=== PATIENT | female | born 1960 | race Caucasian/White ===

== ENCOUNTER → 2018-04-18 16:43 | Outpatient (CLI) | payer OTHER, SELFPAY ==
[2018-04-18 18:25] LABS: Anion Gap 9 (5-15); BUN 12 mg/dL (7-18); BUN/Creat Ratio 16.5 RATIO (10-20); Calcium,Total 10.1 mg/dL (8.5-10.1); Chloride 96 mmol/L (98-107); Cholesterol 259 mg/dL (200); Creatinine, Serum 0.73 mg/dL (0.55-1.02); EST Glomerular Filtration Rate 88 mL/min (>60); Est Glom Filt Rate - Afr Amer 106 mL/min (>60); Glucose 97 mg/dL (74-106); High Density Lipoprotein 80 mg/dL; Sodium Level 133 mmol/L (136-145); Triglycerides 115 mg/dL; Very Low Density Lipoprotein 23 mg/dL (5-40)
[2018-04-18 18:43] LABS: Microalbumin,Random Urine 12.6 mg/L (NO RANGE EST.); Microalbumin:Creatinine Ratio 87.5 mg/g CRE (<30 mg/g CRE)
--- OUTSIDE RECORDS SUMMARY | 2018-06-14 09:19 | XMS RPT_ITS ---
:1960 Author Organization [facility] Care Team Providers Name Role Phone Jami Hopkins Attending Unavailable Jami Hopkins Primary Care Unavailable PROBLEMS PROBLEMS No Problem Records FoundPROCEDURES PROCEDURES No Procedure Records FoundRESULTS RESULTS PROGRESS Observed: 05/02/2018 Status: COMPLETED Source: [place] 9:56 AM [facility] [place] REPOSITORY HNO ID: [id number] Author: Rayne Navarrete Brim Pouncer Service: (none) Author Type: (none) Type: Progress Notes Filed: 05/02/2018 9:56 AM Note Text: Mychart message read. PROGRESS Observed: 04/26/2018 Status: COMPLETED Source: [place] 12:20 PM [facility] REPOSITORY HNO ID: [id number] Author: Rayne Navarrete [facility] Service: (none) Author Type: (none) Type: Progress Notes Filed: 05/02/2018 9:56 AM Note Text: MyChart message sent. PROGRESS Observed: 04/25/2018 Status: COMPLETED Source: [place] 12:59 PM [facility] [place] REPOSITORY HNO ID: [id number] Author: Rayne Navarrete [facility] Service: (none) Author Type: (none) Type: Progress Notes Filed: 05/02/2018 9:56 AM Note Text: [facility] CARE GAP REGISTRY DOCUMENTATION (OUTSIDE TEAMLET) Provider Action/FYI: PSR Action/FYI: - r/s 6 mo follow up/Physical/HTN f/up - Schedule PAP/HPV if patient willing Discuss Due HM: ANNUAL PCP TEAM CHRONIC DISEASE VISIT due on 1978 BP CONTROLLED (<130/80) due on 1978 MAMMOGRAM due on 07/16/2016 - order pending DTAP,TDAP,TD(2 - Td) due on 08/31/2016 PAP EVERY 5 YEARS due on 12/29/2017 HPV EVERY 5 YEARS due on 12/29/2017 INFLUENZA(1) due on 01/21/2018 DIABETES SCREEN due on 04/16/2018 - order pending Patient identified by name and date of . Last BP/Labs: Blood Pressure: Last 3 Encounter BP Readings: Date: BP: 01/07/2017 160/90[ (from Extended Vitals)[ 01/13/2016 148/96 07/23/2015 138/82 Lipids: Cholesterol, Total (mg/dL) Date Value 01/03/2017 286 01/09/2016 223 HDL Cholesterol (mg/dL) Date Value 01/03/2017 76 01/09/2016 76 LDL Cholesterol (mg/dL) Date Value 01/03/2017 191 01/09/2016 133 Triglyceride (mg/dL) Date Value 01/03/2017 93 01/09/2016 72 HGB A1C: Lab Results Component Value Date HBA1C 5.6 07/24/2014 TSH: TSH (uU/mL) Date Value 07/24/2014 4.510 ) ? Patient has the following care gap registry disease diagnosis:HTN ? Patient has the following open care gaps: Health Maintenance Due: ANNUAL PCP TEAM CHRONIC DISEASE VISIT due on 1978 BP CONTROLLED (<130/80) due on 1978 MAMMOGRAM due on 07/16/2016 - order pending DTAP,TDAP,TD(2 - Td) due on 08/31/2016 PAP EVERY 5 YEARS due on 12/29/2017 HPV EVERY 5 YEARS due on 12/29/2017 INFLUENZA(1) due on 01/21/2018 DIABETES SCREEN due on 04/16/2018 - order pending ? Last office visit: 01/07/2017 ? Future office visit:Follow-up HTN/6 month follow up r/s with Provider pcp or SENIOR GRADUATE ADVISOR Rayne Navarrete Cma, [id number] Observed: 04/25/2018 Status: COMPLETED Source: [place] 12:00 AM [facility] REPOSITORY Patient Outreach (INTMWS) KANDACE RASHEED Oscar ([id number]) 1960 F KDP Date Time Provider Department 04/25/18 RAYNE NAVARRETE ([facility]) INTMWS During your visit today, we recorded the following information about you: Rayne Landon [facility] 05/02/2018 9:56 AM Signed [facility] CARE GAP REGISTRY DOCUMENTATION (OUTSIDE TEAMLET) Provider Action/FYI: PSR Action/FYI: - r/s 6 mo follow up/Physical/HTN f/up - Schedule PAP/HPV if patient willing Discuss Due HM: ANNUAL PCP TEAM CHRONIC DISEASE VISIT due on 1978 BP CONTROLLED (<130/80) due on 1978 MAMMOGRAM due on 07/16/2016 - order pending DTAP,TDAP,TD(2 - Td) due on 08/31/2016 PAP EVERY 5 YEARS due on 12/29/2017 HPV EVERY 5 YEARS due on 12/29/2017 INFLUENZA(1) due on 01/21/2018 DIABETES SCREEN due on 04/16/2018 - order pending Patient identified by name and date of . Last BP/Labs: Blood Pressure: Last 3 Encounter BP Readings: Date: BP: 01/07/2017 160/90[ (from Extended Vitals)[ 01/13/2016 148/96 07/23/2015 138/82 Lipids: Cholesterol, Total (mg/dL) Date Value 01/03/2017 286 01/09/2016 223 HDL Cholesterol (mg/dL) Date Value 01/03/2017 76 01/09/2016 76 LDL Cholesterol (mg/dL) Date Value 01/03/2017 191 01/09/2016 133 Triglyceride (mg/dL) Date Value 01/03/2017 93 01/09/2016 72 HGB A1C: Lab Results Component Value Date HBA1C 5.6 07/24/2014 TSH: TSH (uU/mL) Date Value 07/24/2014 4.510 ) ? Patient has the following care gap registry disease diagnosis:HTN ? Patient has the following open care gaps: Health Maintenance Due: ANNUAL PCP TEAM CHRONIC DISEASE VISIT due on 1978 BP CONTROLLED (<130/80) due on 1978 MAMMOGRAM due on 07/16/2016 - order pending DTAP,TDAP,TD(2 - Td) due on 08/31/2016 PAP EVERY 5 YEARS due on 12/29/2017 HPV EVERY 5 YEARS due on 12/29/2017 INFLUENZA(1) due on 01/21/2018 DIABETES SCREEN due on 04/16/2018 - order pending ? Last office visit: 01/07/2017 ? Future office visit:Follow-up HTN/6 month follow up r/s with Provider pcp or SENIOR GRADUATE ADVISOR Rayne Navarrete [facility] 05/02/2018 9:56 AM Signed [employer] message sent. Rayne Navarrete Cma 05/02/2018 9:56 AM Signed [employer] message read. Allergies As of Date: 04/25/2018 Noted Allergy Reaction BEES 01/21/2005 MACROBID (NITROFURANTOIN MONOHYD/*01/21/2005 12 - Shortness of Breath soft shell crabs [Other] 01/21/2005 Date Reviewed: 01/07/2017 Reviewed by: Liz Segura [facility] - Fully Assessed Reason for Visit: PHMA/Care Gap Outreach [3605] Primary Visit Diagnosis:Screening mammogram, encounter for [Z12.31] Other Visit Diagnoses:Essential hypertension [I10] Encounter for screening for diabetes mellitus [Z13.1] Order(s):HUONG SCREENING [[id number]] Order #: [id number] FUTURE COMP METABOLIC PANEL [SQCMP] Order #: [id number] FUTURE HUONG SCREENING W STACIE [[id number]] Order #: [id number] FUTURE Prescriptions as of 04/25/2018 Sig: CHOLECALCIFEROL (VITAMIN D3) * Take 1 tablet by mouth once d* COMPOUNDED PRESCRIPTION once daily. glucosamine chond* CYCLOBENZAPRINE 5 MG TABLET Take 1 tablet by mouth three * HYOSCYAMINE SULFATE 0.125 MG * Take 1 tablet by mouth twice * MULTI-VITAMIN ORAL Take 1 tablet by mouth twice * OMEGA 8-EPG-PST-FISH OIL 1,00* Take 1 capsule by mouth twice* OXYCODONE-ACETAMINOPHEN 5 MG-* Take 1 tablet by mouth every * PAROXETINE 20 MG TABLET Take 1 tablet by mouth once d* TRIAMTERENE 37.5 MG-HYDROCHLO* TAKE ONE TABLET BY MOUTH EVER* Problem List As Of Date 04/25/2018 Noted Resolved Other abnormal heart sounds [R01.2] 04/21/2015 TENSION HEADACHE [G44.209] IRRITABLE COLON [K58.9] DEPRESSIVE DISORDER NEC [F32.9] 04/21/2015 More... GENERALIZED ANXIETY DIS [F41.1] More... 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 LAB L501.1000 7-18 mg/dL Normal BUN 12 LAB L501.1100 0.55-1.02 mg/dL Normal CREAT,SERUM 0.73 Result Comment: The validity of the calculated GFR AND GFRAA in patients over 70 years has not been determined. Clinical correlation is essential. LAB L501.1110 >60 mL/min Normal EST GFR 88 Result Comment: Non- GFR Calc LAB L501.1115 >60 mL/min Normal EST GFR - AA 106 Result Comment: GFR Calc LAB L501.1300 10-20 RATIO Normal BUN/CRE 16.5 LAB L501.2200 8.5-10.1 mg/dL CA Normal 10.1 LAB L501.5300 136-145 mmol/L Low NA 133 LAB L501.5600 3.5-5.1 mmol/L K Normal 4.0 LAB L501.5900 98-107 mmol/L Low CL 96 LAB L501.6100 21.0-32.0 mmol/L Normal CO2 28.0 LAB L501.6200 5-15 Normal GAP 9 Performed By: #### L500.2500, L500.4100 #### [facility] [address] [place], [address] LIPID PROFILE Collected: 04/18/2018 Status: F Source: [place] 4:50 PM [facility] REPOSITORY TYPE CODE TESTS RESULT OUT OF RANGE REFERENCE UNITS LAB L501.4900 200 mg/dL High CHOL 259 Result Comment: <200 mg/dL Desirable 200-240 mg/dL Borderline >240 mg/dL High Risk LAB L501.5000 mg/dL Normal TRIG 115 Result Comment: The drugs N-Acetylcysteine and Metamizole may falsely depress this assay. Serum Triglycerides Reference Interval Normal <150 mg/dL Borderline high 150 - 199 mg/dL High 200 - 499 mg/dL Very High > or = 500 mg/dL LAB L501.6400 mg/dL Normal HDL 80 Result Comment: The drugs N-Acetylcysteine and Metamizole may falsely depress this assay. Reference Range HDL <40 mg/dL Low HDL Cholesterol HDL >or= 60 mg/dL High HDL Cholesterol LAB L501.6500 0-130 mg/dL High LDL 156 LAB L501.6600 5-40 mg/dL Normal VLDL 23 Performed By: #### L500.2500, L500.4100 #### [facility] [address] [place], [address] MICROALB:CREAT Collected: 04/18/2018 Status: F Source: [place] RATIO,RANDOM UR 4:50 PM [facility] REPOSITORY TYPE CODE TESTS RESULT OUT OF RANGE REFERENCE UNITS LAB L501.1200 NO RANGE EST. mg/dL Normal UR CREAT 14.40 LAB L502.0500 NO RANGE EST. mg/L Normal 12.6 MICROALBUMIN ,UR LAB L502.0600 <30 mg/g CRE mg/g CRE High 87.5 MALB:CREAT Performed By: #### L502.0250 #### [facility] [address] [place], [address] ALLERGIES ALLERGIES No Allergies Records FoundENCOUNTERS ENCOUNTERS ADMIT/DISCHARGE ACCOUNT ADMITTING ENCOUNTER LOCATION SOURCE NUMBER CLASS 04/18/2018 [id number] Ambulatory [address] ing:MFPLAB Repository PAYERS PAYERS ENCOUNTER GUARANTOR PAYER SUBSCRIBER SOURCE 04/18/2018 KANDACE Primary KANDACE [place] [id number] Insurance:ELINALTCAREMarlo ROSADOROTHDOB: [address] [place]: [id number] [id number] Repository [address]Ywr: [phone] Date:[id number] [phone] (HP) [address] [address]TK: 04/18/2018 Secondary NOT GIVENNESHA Whitman Insurance:SELF PAY [facility] Number: Effective Repository Date:2018-04-18
== END ==
PROVIDERS: Family Provider Family Medicine; PCP Family Medicine; Visit Provider Family Medicine
DX: I10 Essential (primary) hypertension (principal); E78.5 Hyperlipidemia, unspecified; Z52.4 Kidney donor
CPT/HCPCS: 36415; 80048; 80061; 82043; 82570

== ENCOUNTER → 2018-06-15 12:18 | Outpatient (CLI) | payer OTHER, SELFPAY ==
--- NOTE | 2018-06-15 12:21 | BI_ITS ---
MAMMOGRAPHY - BILATERAL SCREENING REASON FOR EXAM: Female, 57 years old. Routine annual screening examination. PERTINENT HISTORY: Aunt with breast cancer. TECHNIQUE: Digital bilateral breast isreal (3D mammographic acquisition) in the CC and MLO projections. 2-D mediolateral oblique (MLO) and craniocaudad (CC) views of both breasts were obtained. CAD: Full Field Digital Mammography with Computer Added Detection was performed. COMPARISON: Comparison is made with prior outside mammogram dated July 16, 2015. FINDINGS: Breast Composition: The breasts are heterogeneously dense, which may obscure small masses. There are no dominant masses or suspicious calcifications. No other significant abnormalities are identified. There has been no significant change since the prior study. BI/SCREENING MAMM (CAD), BILAT IMPRESSION: Stable bilateral screening mammogram. Yearly follow-up mammogram recommended. (A) ASSESSMENT CATEGORY: BIRADS Category 1: Negative. A letter regarding these results will be sent to the patient by the facility within 30 days. Approximately 10% of breast cancers are not detected by mammography. A normal mammogram should not delay biopsy of a clinically suspicious abnormality. [id number] Electronically Signed: Humza Hoffman MD at 14:56 EST , Service support ,
== END ==
PROVIDERS: Family Provider Family Medicine; PCP Family Medicine; Referring Provider Family Medicine; Visit Provider Family Medicine
DX: Z12.31 Encounter for screening mammogram for malignant neoplasm of breast (principal)
CPT/HCPCS: 77063; 77067

== ENCOUNTER → 2018-06-23 10:48 | Outpatient (CLI) | payer OTHER, SELFPAY ==
[2018-06-23 12:32] LABS: AST(SGOT) 25 U/L (15-37); Cholesterol 148 mg/dL (200); High Density Lipoprotein 67 mg/dL; Triglycerides 102 mg/dL; Very Low Density Lipoprotein 20 mg/dL (5-40)
[2018-06-23 12:59] LABS: Microalbumin:Creatinine Ratio 17.2 mg/g CRE (<30 mg/g CRE)
== END ==
PROVIDERS: Family Provider Family Medicine; PCP Family Medicine; Visit Provider Family Medicine
DX: E78.5 Hyperlipidemia, unspecified (principal)
CPT/HCPCS: 36415; 80061; 82043; 82570; 84450

== ENCOUNTER → 2018-06-26 12:07 | Outpatient (CLI) | payer OTHER, SELFPAY ==
[2018-06-28 12:15] LABS: HPV Reflexed? NOT INDICATED
== END ==
PROVIDERS: Family Provider Family Medicine; PCP Family Medicine; Referring Provider Family Medicine; Visit Provider Family Medicine
DX: Z12.4 Encounter for screening for malignant neoplasm of cervix (principal)
CPT/HCPCS: 88175; G0145

== ENCOUNTER → 2018-12-25 | Outpatient (CLI) | payer OTHER, SELFPAY ==
[2018-12-25 12:50] LABS: Anion Gap 8 (5-15); BUN 12 mg/dL (7-18); BUN/Creat Ratio 14.3 RATIO (10-20); Chloride 101 mmol/L (98-107); Creatinine, Serum 0.84 mg/dL (0.55-1.02); EST Glomerular Filtration Rate 74 mL/min (>60); Est Glom Filt Rate - Afr Amer 89 mL/min (>60); Glucose 105 mg/dL (74-106); Potassium 4.3 mmol/L (3.5-5.1); Sodium Level 138 mmol/L (136-145)
== END | disposition home or self-care (01) ==
LOC: MFPLAB 10:47
PROVIDERS: Family Provider Family Medicine; PCP Family Medicine; Visit Provider Family Medicine
DX: I10 Essential (primary) hypertension (principal)
CPT/HCPCS: 36415; 80048

== ENCOUNTER → 2019-07-06 | Outpatient (CLI) | payer MEDICAID, SELFPAY ==
--- NOTE | 2019-07-06 12:57 | BI_ITS ---
MAMMOGRAPHY - BILATERAL SCREENING REASON FOR EXAM: Female, 58 years old. Routine annual screening examination. PERTINENT HISTORY: Aunt with breast cancer. TECHNIQUE: Digital bilateral breast stacie (3D mammographic acquisition) in the CC and MLO projections. 2-D mediolateral oblique (MLO) and craniocaudad (CC) views of both breasts were obtained. CAD: Full Field Digital Mammography with Computer Added Detection was performed. COMPARISON: Comparison is made with prior examination dated June 15, 2018. FINDINGS: Breast Composition: The breasts are heterogeneously dense, which may obscure small masses. There are no dominant masses or suspicious calcifications. Stable scattered bilateral calcifications. No other significant abnormalities are identified. There has been no significant change since the prior study. BI/SCREEN MAMM (CAD) W/STACIE BILAT IMPRESSION: Stable bilateral screening mammogram. Yearly follow-up mammogram recommended. (A) ASSESSMENT CATEGORY: BIRADS Category 2: Benign. A letter regarding these results will be sent to the patient by the facility within 30 days. Approximately 10% of breast cancers are not detected by mammography. A normal mammogram should not delay biopsy of a clinically suspicious abnormality. [id number] Electronically Signed: Humza Hoffman, at 14:21 EST , Service support ,
== END | disposition home or self-care (01) ==
PROVIDERS: Family Provider Family Medicine; PCP Family Medicine; Referring Provider Family Medicine; Visit Provider Family Medicine
DX: Z12.31 Encounter for screening mammogram for malignant neoplasm of breast (principal)
CPT/HCPCS: 77063; 77067

== ENCOUNTER → 2019-07-18 15:00 | Outpatient (CLI) | payer MEDICAID, SELFPAY ==
[2019-07-18 17:47] LABS: Anion Gap 7 (5-15); BUN 15 mg/dL (7-18); BUN/Creat Ratio 18.4 RATIO (10-20); Calcium,Total 9.8 mg/dL (8.5-10.1); Chloride 101 mmol/L (98-107); Creatinine, Serum 0.82 mg/dL (0.55-1.02); EST Glomerular Filtration Rate 77 mL/min (>60); Est Glom Filt Rate - Afr Amer 93 mL/min (>60); Glucose 88 mg/dL (74-106); Potassium 3.5 mmol/L (3.5-5.1); Sodium Level 135 mmol/L (136-145)
== END ==
PROVIDERS: PCP Family Medicine; Referring Provider Family Medicine; Visit Provider Family Medicine
DX: I10 Essential (primary) hypertension (principal)
CPT/HCPCS: 36415; 80048

== ENCOUNTER → 2019-07-27 | Outpatient (CLI) | payer OTHER, SELFPAY ==
--- NOTE | 2019-07-27 10:52 | ECHOD_ITS ---
Reason For Study: MURMUR Procedure This was a 2D Doppler, Color Flow transthoracic echocardiogram. Exam performed in department. Left Ventricle Normal LV size. Left ventricular systolic function is normal. The estimated ejection fraction is 60 %. Normal diastology for age. No regional wall motion abnormalities noted. Right Ventricle Normal RV size. Normal systolic function. Atria Normal left atrium. Normal right atrium. Mitral Valve Normal mitral valve. Mild (1+) eccentric mitral valve insufficiency. Tricuspid Valve Normal tricuspid valve. Aortic Valve Normal aortic valve. Trisinus/trileaflet aortic valve. Pulmonic Valve Normal pulmonic valve. Great Vessels Normal aortic root. The pulmonary artery is normal size. Normal inferior vena cava. Pericardium/Pleural No pericardial effusion. MMode/2D Measurements & Calculations LVIDd: 4.6 cm IVSd: 1.2 cm Ao root diam: 3.5 cm LVIDs: 2.8 cm LVPWd: 1.1 cm RVDd: 2.9 cm FS: 39.3 % LAV(MOD-bp): 68.3 ml LA A4 area: 19.0 cm2 LA dimension(2D): 3.7 cm LAV(MOD-bp) Indexed: 40.2 ml/m2 LAV(MOD-sp2): 62.6 ml LAV(MOD-sp4): 62.1 ml RA A4 area: 13.0 cm2 Time Measurements MV dec time: 0.20 sec Doppler Measurements & Calculations MV E max you: 62.8 cm/sec Lat Peak E' You: 10.2 cm/sec Med Peak E' You: 7.5 cm/sec MV A max you: 69.8 cm/sec E/E' lat: 6.2 E/E' med: 8.4 MV E/A: 0.90 Ao V2 max: 121.9 cm/sec LV V1 max: 102.0 cm/sec Ao max P.0 mmHg LV V1 max P.2 mmHg Interpretation Summary Normal LV size. Left ventricular systolic function is normal. The estimated ejection fraction is 60 %. Normal diastology for age. Structurally normal valves. Ordering Physician: Jami Hopkins Referring Physician: Jami Hopkins Performed By: Tanisha Islas, SIMON, RVT
== END | disposition home or self-care (01) ==
LOC: CVS 10:50
PROVIDERS: PCP Family Medicine; Referring Provider Family Medicine; Visit Provider Family Medicine
DX: R01.1 Cardiac murmur, unspecified (principal)
CPT/HCPCS: 93306

== ENCOUNTER → 2020-08-01 11:32 | Outpatient (CLI) | payer OTHER, SELFPAY ==
[2020-08-01 15:38] LABS: Anion Gap 9 (5-15); BUN 13 mg/dL (7-18); Calcium,Total 10.4 mg/dL (8.5-10.1); Chloride 100 mmol/L (98-107); Cholesterol 177 mg/dL (200); Creatinine, Serum 0.87 mg/dL (0.55-1.02); EST Glomerular Filtration Rate 71 mL/min (>60); Est Glom Filt Rate - Afr Amer 86 mL/min (>60); Glucose 129 mg/dL (74-106); High Density Lipoprotein 82 mg/dL; Potassium 4.1 mmol/L (3.5-5.1); Sodium Level 137 mmol/L (136-145); Triglycerides 55 mg/dL; Very Low Density Lipoprotein 11 mg/dL (5-40)
== END ==
PROVIDERS: PCP Family Medicine; Referring Provider Family Medicine; Visit Provider Family Medicine
DX: I10 Essential (primary) hypertension (principal)
CPT/HCPCS: 36415; 80048; 80061

== ENCOUNTER → 2020-09-26 11:22 | Outpatient (CLI) | payer OTHER, SELFPAY ==
--- NOTE | 2020-09-26 11:25 | BI_ITS ---
MAMMOGRAPHY - BILATERAL SCREENING REASON FOR EXAM: Female, 59 years old. Routine annual screening examination. PERTINENT HISTORY: Aunt with breast cancer. TECHNIQUE: Digital bilateral breast stacie (3D mammographic acquisition) in the CC and MLO projections. 2-D mediolateral oblique (MLO) and craniocaudad (CC) views of both breasts were obtained. CAD: Full Field Digital Mammography with Computer Added Detection was performed. COMPARISON: Comparison is made with prior study dated 07/06/2019 and 06/15/2018. FINDINGS: Breast Composition: The breasts are heterogeneously dense, which may obscure small masses. There are no dominant masses or suspicious calcifications. Stable scattered calcifications in both breasts. No other significant abnormalities are identified. There has been no significant change since the prior study. BI/SCRN MAMM (CAD)W/STACIE BILAT IMPRESSION: Stable bilateral screening mammogram. Yearly follow-up mammogram recommended. (A) ASSESSMENT CATEGORY: BIRADS Category 2: Benign. A letter regarding these results will be sent to the patient by the facility within 30 days. Approximately 10% of breast cancers are not detected by mammography. A normal mammogram should not delay biopsy of a clinically suspicious abnormality. [id number] Electronically Signed: Humza Hoffman MD at 12:34 EDT , Service support ,
== END ==
PROVIDERS: PCP Family Medicine; Referring Provider Family Medicine; Visit Provider Family Medicine
DX: Z12.31 Encounter for screening mammogram for malignant neoplasm of breast (principal)
CPT/HCPCS: 77063; 77067

== ENCOUNTER 2021-08-03 14:42 | Outpatient (CLI) | payer OTHER, SELFPAY ==
[2021-08-03 18:07] LABS: Anion Gap 7 (5-15); BUN 12 mg/dL (7-18); BUN/Creat Ratio 13.8 RATIO (10-20); Calcium,Total 9.7 mg/dL (8.5-10.1); Chloride 100 mmol/L (98-107); Cholesterol 174 mg/dL (200); Creatinine, Serum 0.87 mg/dL (0.55-1.02); EST Glomerular Filtration Rate 70 mL/min (>60); Est Glom Filt Rate - Afr Amer 85 mL/min (>60); Glucose 120 mg/dL (74-106); High Density Lipoprotein 77 mg/dL; Potassium 3.7 mmol/L (3.5-5.1); Sodium Level 136 mmol/L (136-145); Triglycerides 137 mg/dL; Very Low Density Lipoprotein 27 mg/dL (5-40)
[2021-08-03 18:19] LABS: Creatinine, Urine (random) < 13.00 mg/dL (NO RANGE EST.); Microalbumin,Random Urine 14.2 mg/L (NO RANGE EST.)
[2021-08-09 16:29] LABS: HPV APTIMA, High Risk Negative (Negative); HPV Reflexed? YES, CHARGE PATIENT
== END 2021-08-03 23:59 | disposition home or self-care (01) ==
PROVIDERS: PCP Family Medicine; Referring Provider Family Medicine; Visit Provider Family Medicine
DX: Z12.4 Encounter for screening for malignant neoplasm of cervix (principal); I10 Essential (primary) hypertension
CPT/HCPCS: 36415; 80048; 80061; 82043; 82570; 87624; 88175; G0145

== ENCOUNTER → 2021-09-29 | Outpatient (CLI) | payer OTHER, SELFPAY ==
--- NOTE | 2021-09-29 11:00 | BI_ITS ---
MAMMOGRAPHY - BILATERAL SCREENING REASON FOR EXAM: Female, 60 years old. Routine annual screening examination. PERTINENT HISTORY: Aunt with breast cancer. TECHNIQUE: Digital bilateral breast stacie (3D mammographic acquisition) in the CC and MLO projections. 2-D mediolateral oblique (MLO) and craniocaudad (CC) views of both breasts were obtained. CAD: Full Field Digital Mammography with Computer Added Detection was performed. COMPARISON: Comparison is made with prior study dated 09/26/2020 and 07/06/2019. FINDINGS: Breast Composition: The breasts are heterogeneously dense, which may obscure small masses. There are no dominant masses or suspicious calcifications. Stable scattered bilateral calcifications. Stable small benign appearing bilateral axillary lymph nodes. No other significant abnormalities are identified. There has been no significant change since the prior study. BI/SCRN MAMM (CAD)W/STACIE BILAT IMPRESSION: Stable bilateral screening mammogram. Yearly follow-up mammogram recommended. (A) ASSESSMENT CATEGORY: BIRADS Category 2: Benign. A letter regarding these results will be sent to the patient by the facility within 30 days. Approximately 10% of breast cancers are not detected by mammography. A normal mammogram should not delay biopsy of a clinically suspicious abnormality. [id number] Electronically Signed: Humza Hoffman MD at 12:56 EDT ,
== END | disposition home or self-care (01) ==
LOC: OPBI 10:58
PROVIDERS: PCP Family Medicine; Referring Provider Family Medicine; Visit Provider Family Medicine
DX: Z12.31 Encounter for screening mammogram for malignant neoplasm of breast (principal)
CPT/HCPCS: 77063; 77067

== ENCOUNTER → 2022-11-22 | Outpatient (CLI) | payer OTHER, SELFPAY ==
--- NOTE | 2022-11-22 10:46 | BI_ITS ---
MAMMOGRAPHY - BILATERAL SCREENING REASON FOR EXAM: Female, 61 years old. Routine annual screening examination. PERTINENT HISTORY: Aunt with breast cancer. TECHNIQUE: Digital bilateral breast stacie (3D mammographic acquisition) in the CC and MLO projections. 2-D mediolateral oblique (MLO) and craniocaudad (CC) views of both breasts were obtained. CAD: Full Field Digital Mammography with Computer Added Detection was performed. COMPARISON: Comparison is made with prior study of September 29, 2021 and September 27, 2019 FINDINGS: Breast Composition: The breasts are heterogeneously dense, which may obscure small masses. There are no dominant masses or suspicious calcifications. Stable scattered bilateral calcifications. No other significant abnormalities are identified. There has been no significant change since the prior study. BI/SCRN MAMM (CAD)W/STACIE BILAT IMPRESSION: Stable bilateral screening mammogram. Yearly follow-up mammogram recommended. (A) ASSESSMENT CATEGORY: BIRADS Category 2: Benign. A letter regarding these results will be sent to the patient by the facility within 30 days. Approximately 10% of breast cancers are not detected by mammography. A normal mammogram should not delay biopsy of a clinically suspicious abnormality. [id number] Electronically Signed: Humza Hoffman MD at 12:06 EDT ,
[2022-11-22 11:51] LABS: Microalbumin,Random Urine 13.4 mg/L (NO RANGE EST.); Microalbumin:Creatinine Ratio 71.7 mg/g CRE (<30 mg/g CRE)
[2022-11-22 12:11] LABS: Anion Gap 3 (5-15); BUN 17 mg/dL (7-18); BUN/Creat Ratio 20.8 RATIO (10-20); Calcium,Total 10.3 mg/dL (8.5-10.1); Chloride 98 mmol/L (98-107); Creatinine, Serum 0.82 mg/dL (0.55-1.02); EST Glomerular Filtration Rate 76 mL/min (>60); Est Glom Filt Rate - Afr Amer 91 mL/min (>60); Glucose 110 mg/dL (74-106); Potassium 4.5 mmol/L (3.5-5.1); Sodium Level 135 mmol/L (136-145)
== END | disposition home or self-care (01) ==
PROVIDERS: PCP Internal Medicine; Referring Provider Internal Medicine; Visit Provider Internal Medicine
DX: Z12.31 Encounter for screening mammogram for malignant neoplasm of breast (principal); I10 Essential (primary) hypertension
CPT/HCPCS: 36415; 77063; 77067; 80048; 82043; 82570

== ENCOUNTER → 2023-01-17 | Outpatient (CLI) | payer OTHER, SELFPAY ==
[2023-01-17 16:10] LABS: Anion Gap 7 (5-15); BUN 11 mg/dL (7-18); BUN/Creat Ratio 15.4 RATIO (10-20); Chloride 99 mmol/L (98-107); Creatinine, Serum 0.71 mg/dL (0.55-1.02); EST Glomerular Filtration Rate 88 mL/min (>60); Est Glom Filt Rate - Afr Amer 107 mL/min (>60); Glucose 112 mg/dL (74-106); Potassium 4.3 mmol/L (3.5-5.1); Sodium Level 136 mmol/L (136-145)
[2023-01-17 16:37] LABS: Microalbumin,Random Urine < 5.0 mg/L (NO RANGE EST.)
== END | disposition home or self-care (01) ==
LOC: BIMLAB 12:06
PROVIDERS: PCP Internal Medicine; Visit Provider Internal Medicine
DX: I10 Essential (primary) hypertension (principal)
CPT/HCPCS: 36415; 80048; 82043; 82570

== ENCOUNTER → 2023-01-27 | Outpatient (CLI) | payer OTHER, SELFPAY ==
--- NOTE | 2023-01-27 13:39 | BD_ITS ---
STUDY: DUAL ENERGY X-RAY ABSORPTIOMETRY / DXA REASON FOR EXAM: Female, 62 years old. Post Menopausal TECHNIQUE: Bone Mineral Density (BMD) measurements of lumbar spine and bilateral hips were obtained. COMPARISON: None. FINDINGS: Lumbar Spine (L1-L4): g/cm2 (1.089) / T-score (0.4) / Z-score (1.9) Findings are suggestive of normal bone density with a low fracture risk. Left Femur Total: g/cm2 (0.921) / T-score (-0.2) / Z-score (0.9) Left Femoral Neck: g/cm2 (0.764) / T-score (-0.8) / Z-score (0.6) Right Femur Total: g/cm2 (0.965) / T-score (0.2) / Z-score (1.3) Right Femoral Neck: g/cm2 (0.775) / T-score (-0.7) / Z-score (0.7) BD/Dexa Bone Density Study IMPRESSION: The patient is considered normal as outlined below according to World [employer] Organization (WHO) criteria with a low fracture risk. Reference Information: The T-score is the number of standard deviations above or below the standard which is normal for young adults at their peak bone mineral density. The World Health Organization (WHO) interprets the T-scores as follows: Above -1 Normal bone density Between -1 and -2.5 Osteopenia Equal to / or below -2.5 Osteoporosis As a practical clinical guideline, osteopenia may be graded as follows: Mild -1 through -1.5 Moderate -1.6 through -2.0 Severe -2.1 through -2.4 The Z-score is the number of standard deviations above or below age-matched controls. A Z-score of less than -1.5 would be considered abnormal. References: 1. NIH Osteoporosis and Related Bone Diseases www osteo.org 2. International Society for Clinical Densitometry www iscd.org 3. National Osteoporosis Foundation www nof.org Electronically Signed: Humza Hoffman MD at 13:23 EDT ,
== END | disposition home or self-care (01) ==
LOC: OPBD 13:36
PROVIDERS: PCP Internal Medicine; Referring Provider Internal Medicine; Visit Provider Internal Medicine
DX: Z78.0 Asymptomatic menopausal state (principal)
CPT/HCPCS: 77080

== ENCOUNTER 2023-03-28 08:45 | Day surgery (SDC) | payer OTHER, SELFPAY ==
--- NOTE | 2023-03-28 09:03 | H&P.OPEN ---
[facility] - General General Date of Service: 03/28/23 HPI Narrative KANDACE RASHEED, is a 62 F who presents for screening colonoscopy. Patient had a colonoscopy [address] Willams negative per patient. Patient denies any chronic abdominal pain/nausea/vomiting/reflux. Patient has bowel movements daily denies any blood. Patient denies any family history of colon cancer. [facility] Medical History Alcohol use Anxiety Anxiety and depression Cardiac murmur Colon cancer screening Depression Difficulty sleeping Former smoker Health care maintenance High cholesterol History of echocardiogram History of IBS Hyperlipidemia Hypertension IBS (irritable bowel syndrome) Ocular migraine Renal donor Seasonal allergies Tension headache Wears glasses Home Medications Turmeric Curcumin 1 ea PO DAILY 11/11/22 [History Last Taken Unknown] cholecalciferol (vitamin D3) 50 mcg (2,000 unit) capsule 50 mcg PO DAILY 11/11/22 [History Last Taken Unknown] coenzyme Q10 100 mg capsule (Co Q-10) 100 mg PO DAILY 11/11/22 [History Last Taken Unknown] collagen peptide 1 ea PO DAILY 11/11/22 [History Last Taken Unknown] cyclobenzaprine 5 mg tablet 5 mg PO .prn PRN spasms 11/11/22 [History Last Taken Unknown] diphenhydramine HCl 25 mg capsule 25 mg PO QHS PRN ALLERGIES 11/11/22 [History Last Taken Unknown] hydrochlorothiazide 25 mg tablet 25 mg PO DAILY 11/11/22 [History Last Taken Unknown] losartan 50 mg tablet 50 mg PO BID 11/11/22 [History Last Taken Unknown] magnesium 250 mg tablet 250 mg PO DAILY 11/11/22 [History Last Taken Unknown] multivitamin 1 tab PO DAILY 11/11/22 [History Last Taken Unknown] omega 4-tcp-eai-fish oil 60 mg-90 mg-500 mg capsule (Fish Oil) 1 cap PO DAILY 11/11/22 [History Last Taken Unknown] psyllium husk 0.52 gram capsule 0.52 g PO DAILY 11/11/22 [History Last Taken Unknown] vitamin B complex 1 cap PO DAILY 11/11/22 [History Last Taken Unknown] amlodipine 5 mg tablet 5 mg PO DAILY #90 tabs 01/17/23 [Rx Last Taken Unknown] atorvastatin 10 mg tablet 10 mg PO Q OTHER DAY #90 tabs 01/17/23 [Rx Last Taken Unknown] hyoscyamine sulfate 0.125 mg tablet 0.125 mg PO QD-BID #60 tabs 01/17/23 [Rx Last Taken Unknown] lorazepam 1 mg tablet 1 mg PO DAILY PRN anxiety #7 tabs 01/17/23 [Rx Last Taken Unknown] paroxetine HCl 20 mg tablet 20 mg PO DAILY #90 tabs 01/17/23 [Rx Last Taken Unknown] thiamine HCl (vitamin B1) 50 mg tablet 50 mg PO DAILY 01/17/23 [History Last Taken Unknown] potassium 1 ea PO Q OTHER DAY 02/14/23 [History Last Taken Unknown] Allergy/AdvReac Type Severity Reaction Status Date / Time bee venom protein (honey bee) Allergy Severe Shortness Verified 02/14/23 15:55 of breath crab Allergy Severe Swelling Verified 02/14/23 15:55 nitrofurantoin Allergy Severe Shortness Verified 02/14/23 15:55 [From Macrobid] of breath Surgical History History of kidney removal History of tonsillectomy Hx of colonoscopy Social History Smoking Status: Former smoker alcohol intake: current alcohol intake frequency: a few times a week substance use type: does not use what type of physical activity do you participate in: walking frequency: 5-6 times per week Past Medical/Surgical History Planned Operation Planned Operative Procedure/s: COLONOSCOPY Previous Hospitalizations/Surgeries HX Hospitalizations: No Any Problems With Anesthesia: No You/Your Family Experience Fever (Hyperthermia) With Anes: No Cholinesterase deficiency: No Cardiovascular Hx Hypertension: Yes Respiratory Hx Sleep Apnea: No Hx Respiratory Tract Infection/Cold (presently): No Do You Snore Loudly (louder than talking or can be heard): No Do You Often Feel Tired/ Fatigued/ Sleepy Dring Daytime?: No Has Anyone Observed You Stop Breathing During Sleep?: No Result (for STOP score): Negative Smoking Status: Former smoker Neurological Does patient have nerve stimulator: No Allergies bee venom protein (honey bee) Allergy (Severe, Verified 02/14/23 15:55) Shortness of breath crab Allergy (Severe, Verified 02/14/23 15:55) Swelling THROAT TIGHTNESS nitrofurantoin [From Macrobid] Allergy (Severe, Verified 02/14/23 15:55) Shortness of breath Discharge Is Pt Admitted From a Care Home, or a Long Term: No Who Could Help: After D/C, Where Do you Plan to Go: Return Home Physical Exam Const alert, oriented x3 and no apparent distress HEENT normocephalic and head/scalp atraumatic Resp normal respiratory effort Cardio regular rate GI soft to palpation and non-tender; Negative for non-distended Palpation: Negative for guarding Extremity no clubbing, cyanosis or edema Skin no rashes or lesions noted Neuro CN's II-XII intact bilaterally Psych mental status grossly normal Assessment & Plan Assessment/Plan (1) Colon cancer screening: Surgery Risks - Colonoscopy I discussed with the patient the risks of the procedure: Yes Risks Include but are not Limited To: Risks include but are not limited to: Bleeding, perforation requiring further surgery, inability to complete colonoscopy requiring barium enema.
[2023-03-28] MEDS: Lactated Ringers 1,000 ML 15 ML IV (09:09)
[2023-03-28 09:10] VITALS: BP 138/88; PULSE 93; RESP 18; TEMP 36.6; O2SAT 100; BMI 23.8
[2023-03-28 09:53] VITALS: BP 138/88; BP 94/70; PULSE 71; RESP 16; TEMP 36.7; O2SAT 96
--- NOTE | 2023-03-28 09:54 | OP.COLON_ITS ---
Patient Name: Julia Esquivel Procedure Date: 03/28/2023 9:12 AM Date of : 1960 Age: 62 Procedure: Colonoscopy Indications: Screening for colorectal malignant neoplasm Providers: Yaima Ignacio MD Medicines: Monitored Anesthesia Care Patient Profile: This is a 62 year old female. Last Colonoscopy: 10 years ago. Complications: No immediate complications. Procedure: Pre-Anesthesia Assessment: - Prior to the procedure, a History and Physical was performed, and patient medications and allergies were reviewed. The patient's tolerance of previous anesthesia was also reviewed. The risks and benefits of the procedure and the sedation options and risks were discussed with the patient. All questions were answered, and informed consent was obtained. Prior Anticoagulants: The patient has taken no anticoagulant or antiplatelet agents. ASA Grade Assessment: Per anesthesia. After reviewing the risks and benefits, the patient was deemed in satisfactory condition to undergo the procedure. After I obtained informed consent, the scope was passed under direct vision. Throughout the procedure, the patient's blood pressure, pulse, and oxygen saturations were monitored continuously. The Colonoscope was introduced through the anus and advanced to the cecum, identified by the appendiceal orifice, ileocecal valve and palpation. The colonoscopy was performed with difficulty due to a tortuous colon. Scope In: 9:28:21 AM Scope Withdrawal Time 0 hours 6 minutes 54 seconds Scope Out: 9:49:06 AM Total Procedure Duration Time 0 hours 20 minutes 45 seconds Findings: Hemorrhoids were found on perianal exam. Non-bleeding internal hemorrhoids were found. The hemorrhoids were Grade I (internal hemorrhoids that do not prolapse). Scattered small-mouthed diverticula were found in the sigmoid colon. The entire examined colon appeared normal. Impression: - Hemorrhoids found on perianal exam. - Non-bleeding internal hemorrhoids. - Diverticulosis in the sigmoid colon. - The entire examined colon is normal. - No specimens collected. Recommendation: - Discharge patient to home. - High fiber diet. - Continue present medications. - Repeat colonoscopy in 10 years for screening purposes. Procedure Code(s): --- Professional --- G0121, PT, Colorectal cancer screening; colonoscopy on individual not meeting criteria for high risk Diagnosis Code(s): --- Professional --- Z12.11, Encounter for screening for malignant neoplasm of colon K64.0, First degree hemorrhoids K57.30, Diverticulosis of large intestine without perforation or abscess without bleeding CPT copyright 2021 [employer]. All rights reserved. The codes documented in this report are preliminary and upon hospital staff pharmacist review may be revised to meet current compliance requirements. MD Yaima Chau MD 03/28/2023 9:54:14 AM This report has been signed electronically. Number of Addenda: 0 Note Initiated On: 03/28/2023 9:12 AM
--- NOTE | 2023-03-28 09:55 | OP.CCLET_ITS ---
03/28/2023 Jono Alvarez MD [address] [place] [address] [place] [address] Re : Colonoscopy procedure for Julia Esquivel Dear Dr. Alvarez This procedure was performed on Tuesday, March 28, 2023. My impressions and recommendations are as follows: Impressions : - Hemorrhoids found on perianal exam. - Non-bleeding internal hemorrhoids. - Diverticulosis in the sigmoid colon. - The entire examined colon is normal. - No specimens collected. Recommendations : - Discharge patient to home. - High fiber diet. - Continue present medications. - Repeat colonoscopy in 10 years for screening purposes. My findings are described in the full procedure note, which is enclosed. If I can be of further assistance, please feel free to contact me at Doctor phone number(s): , Work: . Sincerely, MD Yaima Chau MD 03/28/2023 9:54:14 AM This report has been signed electronically.
[2023-03-28 10:00] VITALS: BP 138/88; BP 95/71; PULSE 73; RESP 16; O2SAT 99
[2023-03-28 10:05] VITALS: BP 138/88; BP 97/72; PULSE 71; RESP 16; O2SAT 99
[2023-03-28 10:10] VITALS: BP 109/73; BP 138/88; PULSE 62; RESP 16; TEMP 36.8; O2SAT 99
[2023-03-28 10:21] VITALS: BP 138/88
== END 2023-03-28 10:43 | disposition home or self-care (01) ==
LOC: EN 08:47 → AC 08:48
PROVIDERS: PCP Internal Medicine; Referring Provider Internal Medicine; Visit Provider Surgery
PROC: 0DJD8ZZ Inspection of Lower Intestinal Tract, Via Natural or Artificial Opening Endoscopic (ICD-10-PCS; CPT 45378; principal; 2023-03-28 09:40)
DX: Z12.11 Encounter for screening for malignant neoplasm of colon (principal); K57.30 Diverticulosis of large intestine without perforation or abscess without bleeding; E78.00 Pure hypercholesterolemia, unspecified; Z87.891 Personal history of nicotine dependence; K64.0 First degree hemorrhoids; I10 Essential (primary) hypertension; Z79.899 Other long term (current) drug therapy; Z87.19 Personal history of other diseases of the digestive system
CPT/HCPCS: 45378; J7120; J2405

== ENCOUNTER → 2023-04-21 | Outpatient (CLI) | payer OTHER, SELFPAY ==
[2023-04-21 15:36] LABS: Absolute Lymphocyte Count 2.68 X10^3/uL (0.83-4.51); Absolute Neutrophil Count 5.5 X10^3/uL (2.0-7.7); Basophil% 1.1 % (0-1); Eosinophil# 0.09 X10^3/uL; Hemoglobin 14.7 g/dL (12.0-15.0); Lymphocyte # 2.68 X10^3/ul (0.83-4.51); Lymphocyte % 29.4 % (19-41); Mean Corp Hgb Conc 33.4 g/dL (32-36); Mean Corpuscular Volume 89.8 fL (81-99); Mean Platelet Vol. 14.7 fl (6.2-12.0); Monocyte# 0.76 X10^3/uL; Monocyte% 8.3 % (0-10); NRBC Flagged by Analyzer 0 % (0-5); Neutrophil # 5.45 X10^3/uL (2.7-7.7); Neutrophil % 59.9 % (47-70); Platelet Count 258 K/mm3 (150-450); RBC Distribution Width CV 13.2 % (11.6-14.6); RBC Distribution Width SD 43.3 fl (35.1-43.9); White Blood Count 9.1 K/mm3 (4.4-11.0)
[2023-04-21 16:09] LABS: ALB/GLOB Ratio 1.3 RATIO (0.9-2.4); AST(SGOT) 24 U/L (15-37); Alanine Aminotransfer ALT/SGPT 27 U/L (13-56); Albumin, Serum 4.4 g/dL (3.2-5.0); Alkaline Phosphatase 57 U/L (45-117); Anion Gap 4 (5-15); BUN 11 mg/dL (7-18); BUN/Creat Ratio 11.8 RATIO (10-20); Calcium,Total 9.6 mg/dL (8.5-10.1); Chloride 101 mmol/L (98-107); Cholesterol 209 mg/dL (200); Creatinine, Serum 0.94 mg/dL (0.55-1.02); EST Glomerular Filtration Rate 64 mL/min (>60); Est Glom Filt Rate - Afr Amer 78 mL/min (>60); Globulin 3.5 g/dL (2.2-4.2); Glucose 104 mg/dL (74-106); High Density Lipoprotein 83 mg/dL; Potassium 3.8 mmol/L (3.5-5.1); Protein, Total 7.9 g/dL (6.4-8.2); Sodium Level 135 mmol/L (136-145); Triglycerides 57 mg/dL; Very Low Density Lipoprotein 11 mg/dL (5-40)
== END | disposition home or self-care (01) ==
LOC: BIMLAB 13:31
PROVIDERS: PCP Internal Medicine; Visit Provider Internal Medicine
DX: I10 Essential (primary) hypertension (principal)
CPT/HCPCS: 36415; 80053; 80061; 85025

== ENCOUNTER → 2023-10-20 | Outpatient (CLI) | payer OTHER, SELFPAY ==
[2023-10-20 16:36] LABS: ALB/GLOB Ratio 1.5 RATIO (0.9-2.4); AST(SGOT) 26 U/L (15-37); Alanine Aminotransfer ALT/SGPT 28 U/L (13-56); Albumin, Serum 4.5 g/dL (3.2-5.0); Alkaline Phosphatase 55 U/L (45-117); Anion Gap 10 (5-15); BUN 11 mg/dL (7-18); BUN/Creat Ratio 13.5 RATIO (10-20); Calcium,Total 10.2 mg/dL (8.5-10.1); Chloride 97 mmol/L (98-107); Creatinine, Serum 0.81 mg/dL (0.55-1.02); EST Glomerular Filtration Rate 76 mL/min (>60); Est Glom Filt Rate - Afr Amer 92 mL/min (>60); Globulin 3.1 g/dL (2.2-4.2); Glucose 107 mg/dL (74-106); Potassium 3.7 mmol/L (3.5-5.1); Protein, Total 7.6 g/dL (6.4-8.2); Sodium Level 134 mmol/L (136-145)
[2023-10-21 08:52] LABS: PTHIN 47.7 pg/mL (18.4-80.1)
== END | disposition home or self-care (01) ==
LOC: BIMLAB 13:28
PROVIDERS: PCP Internal Medicine; Visit Provider Internal Medicine
DX: Z52.4 Kidney donor (principal); I10 Essential (primary) hypertension; E83.52 Hypercalcemia
CPT/HCPCS: 36415; 80053; 83970

== ENCOUNTER → 2023-12-02 | Outpatient (CLI) | payer OTHER, SELFPAY ==
--- NOTE | 2023-12-02 09:12 | BI_ITS ---
MAMMOGRAPHY - BILATERAL SCREENING REASON FOR EXAM: Female, 63 years old. Routine annual screening examination. PERTINENT HISTORY: Aunt with breast cancer. TECHNIQUE: Digital bilateral breast stacie (3D mammographic acquisition) in the CC and MLO projections. 2-D mediolateral oblique (MLO) and craniocaudad (CC) views of both breasts were obtained. CAD: Full Field Digital Mammography with Computer Added Detection was performed. COMPARISON: Comparison is made with prior study dated November 22, 2022 and September 29, 2021. FINDINGS: Breast Composition: The breasts are heterogeneously dense, which may obscure small masses. There are no dominant masses or suspicious calcifications. Stable bilateral secretory calcifications. No focal cluster is seen. No other significant abnormalities are identified. There has been no significant change since the prior study. BI/SCRN MAMM (CAD)W/STACIE BILAT IMPRESSION: Stable bilateral screening mammogram. Yearly follow-up mammogram recommended. (A) ASSESSMENT CATEGORY: BIRADS Category 2: Benign. A letter regarding these results will be sent to the patient by the facility within 30 days. Approximately 10% of breast cancers are not detected by mammography. A normal mammogram should not delay biopsy of a clinically suspicious abnormality. [id number] Electronically Signed: Humza Hoffman MD at 9:55 EDT ,
== END | disposition home or self-care (01) ==
LOC: OPBI 09:11
PROVIDERS: PCP Internal Medicine; Referring Provider Internal Medicine; Visit Provider Internal Medicine
DX: Z12.31 Encounter for screening mammogram for malignant neoplasm of breast (principal)
CPT/HCPCS: 77063; 77067

== ENCOUNTER → 2024-01-26 | Outpatient (CLI) | payer OTHER, SELFPAY ==
[2024-01-26 16:59] LABS: Anion Gap 7 (5-15); BUN 18 mg/dL (7-18); BUN/Creat Ratio 21.8 RATIO (10-20); Calcium,Total 10.4 mg/dL (8.5-10.1); Chloride 94 mmol/L (98-107); Creatinine, Serum 0.82 mg/dL (0.55-1.02); EST Glomerular Filtration Rate 74 mL/min (>60); Est Glom Filt Rate - Afr Amer 90 mL/min (>60); Glucose 119 mg/dL (74-106); Potassium 4.4 mmol/L (3.5-5.1); Sodium Level 132 mmol/L (136-145)
[2024-01-26 17:03] LABS: Vitamin D,25 Hydroxy 39.4 ng/mL
== END | disposition home or self-care (01) ==
LOC: BIMLAB 14:40
PROVIDERS: PCP Internal Medicine; Referring Provider Internal Medicine; Visit Provider Internal Medicine
DX: E83.52 Hypercalcemia (principal)
CPT/HCPCS: 36415; 80048; 82306

== ENCOUNTER → 2024-02-07 | Outpatient (CLI) | payer OTHER, SELFPAY ==
[2024-02-07 15:54] LABS: PTHIN 32.9 pg/mL (18.4-80.1)
== END | disposition home or self-care (01) ==
LOC: BIMLAB 14:22
PROVIDERS: PCP Internal Medicine; Visit Provider Internal Medicine
DX: E83.52 Hypercalcemia (principal)
CPT/HCPCS: 36415; 83970

== ENCOUNTER → 2024-06-28 | Outpatient (CLI) | payer OTHER, SELFPAY ==
[2024-06-28 15:34] LABS: Absolute Lymphocyte Count 2.52 X10^3/uL (0.83-4.51); Absolute Neutrophil Count 5.8 X10^3/uL (2.0-7.7); Basophil# 0.09 X10^3/uL; Basophil% 0.9 % (0-1); Eosinophil# 0.18 X10^3/uL; Eosinophils% 1.9 % (0-5); Hematocrit 44.4 % (37-47); Hemoglobin 15.1 g/dL (12.0-15.0); Lymphocyte # 2.52 X10^3/ul (0.83-4.51); Lymphocyte % 26.6 % (19-41); Mean Corpuscular Hgb 30.7 pg (27.0-32.0); Mean Corpuscular Volume 90.2 fL (81-99); Mean Platelet Vol. 14.1 fl (6.2-12.0); Monocyte# 0.87 X10^3/uL; Monocyte% 9.2 % (0-10); NRBC Flagged by Analyzer 0 % (0-5); Neutrophil # 5.79 X10^3/uL (2.7-7.7); Platelet Count 256 K/mm3 (150-450); RBC Distribution Width CV 12.8 % (11.6-14.6); RBC Distribution Width SD 42.4 fl (35.1-43.9); Red Blood Count 4.92 M/mm3 (4.2-5.4); White Blood Count 9.5 K/mm3 (4.4-11.0)
[2024-06-28 17:23] LABS: ALB/GLOB Ratio 1.3 RATIO (0.9-2.4); AST(SGOT) 23 U/L (15-37); Alanine Aminotransfer ALT/SGPT 33 U/L (13-56); Albumin, Serum 4.6 g/dL (3.2-5.0); Alkaline Phosphatase 67 U/L (45-117); Anion Gap 10 (5-15); BUN 11 mg/dL (7-18); BUN/Creat Ratio 14.6 RATIO (10-20); Calcium,Total 9.9 mg/dL (8.5-10.1); Chloride 94 mmol/L (98-107); Cholesterol 193 mg/dL (200); Creatinine, Serum 0.75 mg/dL (0.55-1.02); EST Glomerular Filtration Rate 83 mL/min (>60); Est Glom Filt Rate - Afr Amer 100 mL/min (>60); Globulin 3.5 g/dL (2.2-4.2); Glucose 114 mg/dL (74-106); High Density Lipoprotein 87 mg/dL; Potassium 3.8 mmol/L (3.5-5.1); Protein, Total 8.1 g/dL (6.4-8.2); Sodium Level 131 mmol/L (136-145); Triglycerides 110 mg/dL; Very Low Density Lipoprotein 22 mg/dL (5-40)
== END | disposition home or self-care (01) ==
LOC: BIMLAB 14:13
PROVIDERS: PCP Internal Medicine; Referring Provider Internal Medicine; Visit Provider Internal Medicine
DX: I10 Essential (primary) hypertension (principal)
CPT/HCPCS: 36415; 80053; 80061; 85025

== ENCOUNTER → 2024-08-06 | Outpatient (CLI) | payer OTHER, SELFPAY ==
--- NOTE | 2024-08-06 12:14 | EKG12_ITS ---
Test Reason : HTN Blood Pressure : */* mmHG Vent. Rate : 77 BPM Atrial Rate : 77 BPM P-R Int : 156 ms QRS Dur : 84 ms QT Int : 400 ms P-R-T Axes : 63 19 33 degrees QTcB Int : 452 ms Normal sinus rhythm Normal ECG Confirmed by GREGORIA MENDEZ, DAMIAN ([id number]), sports editor KRYSTIN SCHMID ([id number]) on 08/06/2024 1:41:25 PM Referred By: Jono Alvarez Confirmed By: DAMIAN KINNEY MD
== END | disposition home or self-care (01) ==
PROVIDERS: PCP Internal Medicine; Referring Provider Internal Medicine; Visit Provider Internal Medicine
DX: I10 Essential (primary) hypertension (principal)
CPT/HCPCS: 93005

== ENCOUNTER → 2024-11-19 | Outpatient (CLI) | payer OTHER, SELFPAY | END | disposition home or self-care (01) | LOC: LABSPEC 13:02 | PROVIDERS: PCP Internal Medicine; Visit Provider Physician Assistant | DX: R30.0 Dysuria (principal) | CPT/HCPCS: 87086; 87088 ==

== ENCOUNTER → 2024-11-29 | Outpatient (CLI) | payer OTHER, SELFPAY ==
--- OUTSIDE RECORDS SUMMARY | 2024-11-29 22:03 | XMS RPT_ITS | CCD ---
Author Organization [facility] CliniSytn Care Team Providers Care Golf Ball Trimmer Name Role Phone Donn DOMuriel Unavailable Slarb SLATE HANDLER, Cayla Unavailable Unavailable Unavailable Unavailable Howard RADIO TIME BUYER, Kayela Unavailable Unavailable Donn DOWaiMuriel Attending Unavailable Donn DO Muriel Referring Unavailable Donn DOJoanMuriel Consulting Unavailable Dr. Jami Hopkins Primary Care Provider Dr. Jami Hopkins Referring Provider [phone] Jono Alvarez Attending Provider [phone] Dr. Jono Alvarez Primary Care Provider [phone] Dr. Jono Alvarez Referring Provider [phone] BRONSON Mishra Attending Provider Dr. Jami Hopkins Referring Provider Dr. Jono Alvarez Primary Care Provider [phone] Dr. Jono Alvarez Attending Provider [phone] Dr. Jono Alvarez Referring Provider [phone] BRONSON Mishra Attending Provider Dory Krishna Attending Provider Unavailable Dr. Yaima Ignacio Attending Provider Dr. Yaima Ignacio Other Provider Dr. Jono Alvarez MD Primary Care Provider Dr. Jono Alvarez MD Attending Provider [phone] Dr. Jono Alvarez MD Referring Provider [phone] Brittnee MENDEZ, Dr. Saucedo Attending Provider Kim MENDEZ, Dr. De La Cruz Primary Care Provider Kim MENDEZ, Dr. De La Cruz Attending Provider [phone] Kim MENDEZ, Dr. De La Cruz Referring Provider [phone] Eleno Gonzales Attending Provider Oleghe, Efewongbe Primary Care Unavailable Oleghe, Efewongbe Referring Unavailable Eleno Gonzales Attending Unavailable Oleghe, Efewongbe Primary Care Unavailable Oleghe, Efewongbe Attending Unavailable Oleghe, Efewongbe Referring Unavailable Oleghe, Efewongbe Primary Care Unavailable Oleghe, Efewongbe Attending Unavailable Oleghe, Efewongbe Referring Unavailable Oleghe, Efewongbe Primary Care Unavailable Lewis Beaulieu Attending Unavailable Oleghe, Efewongbe Referring Unavailable Oleghe, Efewongbe Primary Care Unavailable Oleghe, Efewongbe Attending Unavailable Oleghe, Efewongbe Referring Unavailable Oleghe, Efewongbe Attending Unavailable Oleghe, Efewongbe Primary Care Unavailable Oleghe, Efewongbe Referring Unavailable Oleghe, Efewongbe Primary Care Unavailable Eleno Gonzales Attending Unavailable Oleghe, Efewongbe Primary Care Unavailable Oleghe, Efewongbe Attending Unavailable Oleghe, Efewongbe Referring Unavailable Oleghe, Efewongbe Primary Care Unavailable Oleghe, Efewongbe Attending Unavailable Oleghe, Efewongbe Referring Unavailable Oleghe, Efewongbe Primary Care Unavailable Oleghe, Efewongbe Attending Unavailable Fadi Mishra Attending Provider Allergies Allergy Classification Reported Allergen(s) Allergy Type Date of Onset Reaction(s) Facility (5 sources) bee venom; Translations: [Bee venom] Allergy to substance (finding) [facility] Work Phone: Comment on above: sob if multiple stin gs (5 sources) Crab - dietary; Translations: [Crab - dietary] Allergy to substance (finding) [facility] Work Phone: Comment on above: Soft shell crab (5 sources) NITROFURANTOIN, MACROCRYSTALS / Nitrofurantoin, Monohydrate Drug Allergy [facility]; [facility] Work Phone: Comment on above: SOB, abdominal pain/ swelling (9 sources) Nitrofurantoin Drug Allergy 11-12-19 23 Shortness of breath [facility] (9 sources) bee venom protein (honey bee) Allergy to substance 11-12-19 23 Shortness of breath [facility] (1 source) soft shell crabs Allergy to substance 11-12-19 23 throat tightness [facility] (8 sources) crab allergenic extract Drug Allergy 01-18-20 23 Swelling [facility] Comment on above: THROAT TIGHTNESS (1 source) Nitrofurantoin Drug Allergy 11-20-19 [facility] (1 source) bee venom protein (honey bee) Drug allergy (disorder) 11-20-19 [facility] (1 source) crab Drug allergy (disorder) 11-20-19 [facility] Medications Current Medications Medication Drug Class(es) Dates Sig (Normalized) Sig (Original) atorvastatin 10 mg oral tablet (20 sources) HMG-CoA Reductase Inhibitor Start: 01-17-2023 End: 05-28-2024 take 1 tablet by mouth every other day Atorvastatin 10 mg tablet Active 10 mg PO every other day 90 0 May 28, 2024 10:22am Start: 11-11-2022 End: 01-17-2023 take 1 tablet by mouth once daily Atorvastatin 10 mg tablet Discontinued 10 mg PO DAILY November 11, 2022 12:00am January 17, 2023 12:27pm Start: 05-03-2022 take 1 tablet by mildred th once daily atorvastatin 10 mg oral tablet 1 (one) tablet daily for 90 days Quantity: 90 {Tablet} Refills: 3 Ordered: 03-May-2022 Muriel Pop DO, DO, Kathleen Start : 03-May-2022 Active Comments: Mail order. Comment on above: Mail order. cholecalciferol 0.05 mg oral capsule (9 sources) Vitamin D Start: 023 take 1 capsule by mouth once daily Cholecalciferol (Vitamin D3) 50 mcg (2,000 unit) capsule Active 50 ug PO DAILY November 11, 2022 12:00am ciprofloxacin 500 mg oral tablet (3 sources) Quinolone Antimicrobial Start: 025 take 1 tablet by mouth twice daily Ciprofloxacin Hcl 500 mg tablet Active 500 mg PO TWICE A DAY 10 0 November 19, 2024 12:00am collagen peptide (9 sources) Start: 023 collagen peptide Active 1 NMA PO DAILY November 11, 2022 12:00am Start: 11-11-2022 collagen pepti de Active 1 EACH PO DAILY November 10, 2022 11:00pm Start: 11-11-2022 collagen pepti de Active PO November 11, 2022 12:00am diphenhydrAMINE hydrochloride 25 mg oral capsule (9 sources) Histamine-1 Receptor Antagonist Start: 11-11-2022 take 1 capsule by mouth at bedtime as needed Diphenhydramine Hcl 25 mg capsule Active 25 mg PO AT BEDTIME as needed for ALLERGIES November 11, 2022 12:00am Magnesium (9 sources) Start: 11-11-2022 take 1 tablet by mouth once daily Magnesium 250 mg tablet Active 250 mg PO DAILY November 11, 2022 12:00am Start: 11-11-2022 take 250 mg by mouth once yamila y Magnesium Active 250 MG PO DAILY November 10, 2022 11:00pm Start: 11-11-2022 take 250 mg by mouth once yamila y Magnesium Active 250 MG PO DAILY November 11, 2022 12:00am Multivitamin preparation (5 sources) Start: 11-11-2022 take 1 tablet by mouth once daily Multivitamin Active 1 TABLET PO DAILY November 10, 2022 11:00pm Start: 11-11-2022 take 1 tablet by mildred th once daily Multivitamin Active 1 TABLET PO DAILY November 11, 2022 12:00am Multivitamin tablet (4 sources) Start: 11-11-2022 Multivitamin t ablet Active 1 {tbl} PO DAILY November 11, 2022 12:00am [place] 9-Rbc-Odi-Fish Oil (Fi sh Oil) 60-90-500 mg capsule (9 sources) Start: 11-11-2022 [place] 3-Dha-Ep a-Fish Oil (Fish Oil) 60-90-500 mg capsule Active 1 NMA PO DAILY November 11, 2022 12:00am Start: 11-11-2022 take 1 capsule by mo uth once daily [place] 2-Xhu-Ufh-Fish Oil (Fish Oil) 60-90-500 mg capsule Active 1 CAP PO DAILY November 10, 2022 11:00pm Start: 11-11-2022 take 1 capsule by mo uth once daily [place] 8-Evu-Nio-Fish Oil (Fish Oil) 60-90-500 mg capsule Active 1 CAP PO DAILY November 11, 2022 12:00am PARoxetine hydrochloride 20 mg oral tablet (20 sources) Serotonin Reuptake Inhibitor Start: 06-28-2024 take 1 tablet by mouth twice daily Paroxetine Hcl 20 mg tablet Active 20 mg PO TWICE A DAY 180 90 June 28, 2024 2:59pm Start: 10-20-2023 End: 06-28-2024 Paroxetine Hcl 20 mg tablet Discontinued 30 mg PO DAILY 135 90 April 09, 2024 11:03am June 28, 2024 3:06pm Start: 01-17-2023 End: 10-20-2023 take 1 tablet by mouth once daily Paroxetine Hcl 20 mg tablet Discontinued 20 mg PO DAILY 90 January 17, 2023 11:55am October 20, 2023 1:15pm Start: 01-17-2023 End: 01-17-2023 take 1 tablet by mouth once daily Paroxetine Hcl 10 mg tablet Discontinued 10 mg PO DAILY 90 January 17, 2023 12:00am January 17, 2023 11:56am Start: 11-11-2022 End: 11-11-2022 take 1 tablet by mouth once daily Paroxetine Hcl 10 mg tablet Discontinued 10 mg PO DAILY November 11, 2022 12:00am November 11, 2022 6:06pm Potassium (15 sources) Start: 02-14-2023 potassium Acti ve 1 NMA PO every other day February 14, 2023 4:01pm Start: 02-14-2023 potassium Acti ve 1 EACH PO every other day February 14, 2023 3:01pm Start: 11-11-2022 End: 02-14-2023 potassium Discontinued PO Ju ne 2022 12:00am February 14, 2023 4:02pm Start: 11-11-2022 End: 09-25-2023 potassium Discontinued PO Ju ne 2022 11:00pm February 14, 2023 3:02pm Start: 11-11-2022 potassium Acti ve PO November 11, 2022 12:00am psyllium 520 mg oral capsule (9 sources) Start: 11-11-2022 Psyllium Husk 0.52 gram capsule Active 0.52 g PO DAILY November 11, 2022 12:00am sulfamethoxazole 800 mg / trimethoprim 160 mg oral tablet (1 source) Dihydrofolate Reductase Inhibitor Antibacterial, Sulfonamide Antimicrobial Start: 11-29-2024 Sulfamethoxazole-T rimethoprim (Bactrim Ds) 800-160 mg tablet Active 1 {tbl} PO Q12H 14 7 0 November 29, 2024 12:00am December 05, 2024 12:00am thiamine 50 mg oral tablet (8 sources) Start: 01-17-2023 take 1 tablet by mouth once daily Thiamine Hcl (Vitamin B1) 50 mg tablet Active 50 mg PO DAILY January 17, 2023 12:00am Triamcinolone (8 sources) Corticosteroid Start: 10-20-2023 Triamcinolone Acetonide 0.1 % cream Active 1 NMA TOPICAL DAILY as needed for Dermatitis 80 3 October 20, 2023 1:16pm Start: 10-20-2023 Triamcinolone Acetonide 0.1 % cream Active 1 NMA TOPICAL DAILY as needed for Dermatitis 80 October 20, 2023 1:16pm Start: 10-20-2023 End: 10-20-2023 Triamcinolone Acetonide 0.1 % cream Discontinued NMA TOPICAL October 20, 2023 12:00am October 20, 2023 1:18pm Turmeric Curcumin (9 sources) Start: 11-11-2022 Turmeric Curcu min Active 1 NMA PO DAILY November 11, 2022 12:00am Start: 11-11-2022 Turmeric Curcu min Active 1 EACH PO DAILY November 10, 2022 11:00pm Start: 11-11-2022 Turmeric Curcu min Active PO November 11, 2022 12:00am ubidecarenone 100 mg oral capsule (9 sources) Start: 11-11-2022 Coenzyme Q10 ( Co Q-10) 100 mg capsule Active 100 mg PO DAILY November 11, 2022 12:00am Vitamin B Complex (5 sources) Start: 11-11-2022 take 1 capsule by mouth once daily Vitamin B Complex Active 1 CAP PO DAILY November 10, 2022 11:00pm Start: 11-11-2022 take 1 capsule by mouth once d aily Vitamin B Complex Active 1 CAP PO DAILY November 11, 2022 12:00am Vitamin B Complex capsule (4 sources) Start: 11-11-2022 Vitamin B Comp justyn capsule Active 1 NMA PO DAILY November 11, 2022 12:00am vitamin b6 10 mg oral tablet (4 sources) Start: 10-20-2023 take 1 tablet by mouth once daily Pyridoxine (Vitamin B6) 10 mg tablet Active 10 mg PO DAILY October 20, 2023 12:00am Completed/Discontinued Medications Medication Drug Class(es) Dates Sig (Normalized) Sig (Original) amLODIPine 5 mg oral tablet (20 sources) Dihydropyridine Calcium Channel Oumar Start: 11-11-2022 End: 09-26-2024 take 1 tablet by mouth once daily Amlodipine 5 mg tablet Discontinued 5 mg PO DAILY 90 0 May 28, 2024 10:22am September 26, 2024 1:00pm Start: 07-14-2022 take 1 tablet by mildred th once daily amLODIPine 5 mg oral tablet 1 (one) tablet daily for 90 days Quantity: 90 {Tablet} Refills: 3 Ordered: 14-Jul-2022 Muriel Pop DO, DO, Kathleen Start : 14-Jul-2022 Active Comments: Mail order. Start: 05-03-2022 take 1 tablet by mildred th once daily amLODIPine 5 mg oral tablet 1 (one) tablet daily for 90 days Quantity: 90 {Tablet} Refills: 3 Ordered: 03-May-2022 Muriel Pop DO, DO, Kathleen Start : 03-May-2022 Active Comments: Mail order. Comment on above: Mail order. cyclobenzaprine hydrochloride 5 mg oral tablet (20 sources) Muscle Relaxant Start: 11-12-19 End: 04-27-20 take 1 tablet by mouth three times daily as needed for muscle spasms Cyclobenzaprine 5 mg tablet Discontinued 5 mg PO THREE TIMES A DAY as needed for muscle spasm 21 0 September 27, 2023 12:00am April 27, 2024 3:53pm Start: 07-16-2022 cyclobenzaprin e 5 mg oral tablet 1 (one) tablet as needed for 0 days Quantity: 90 {Tablet} Refills: 3 Ordered: 16-Jul-2022 Donn GU Muriel Pop DO Muriel Start : 16-Jul-2022 Active Comments: Medication taken as needed. Start: 07-14-2022 cyclobenzaprin e 5 mg oral tablet 1 (one) tablet as needed for 90 days Refills: 3 Ordered: 14-Jul-2022 Donn GU Muriel Pop DO Muriel Start : 14-Jul-2022 Active Comments: Mail order. Medication taken as needed. Start: 05-03-2022 cyclobenzaprin e 5 mg oral tablet 1 (one) tablet as needed for 90 days Refills: 3 Ordered: 03-May-2022 Donn GU Muriel Donn DO, Muriel Start : 03-May-2022 Active Comments: Mail order. Medication taken as needed. Comment on above: Mail order. Medicati on taken as needed. Medication taken as needed. dapagliflozin 5 mg oral tablet (3 sources) Sodium-Glucose Cotransporter 2 Inhibitor Start : 05-13 take 1 tablet by mouth once daily Farxiga 5 mg oral tablet 1 (one) tablet qd for 0 days Quantity: 30 {Tablet} Refills: 2 Ordered: 13-May-2022 Donn UG Muriel Donn DO, Muriel Start : 13-May-2022 Active DULoxetine 30 mg delayed release oral capsule (5 sources) Serotonin and Norepinephrine Reuptake Inhibitor Start : 05-03 take 1 capsule by mouth once daily DULoxetine 30 mg oral capsule,delayed release (enteric coated) 1 (one) capsule qd for 0 days Quantity: 30 {Capsule} Refills: 0 Ordered: 03-May-2022 Nuzhat Lawrence CMA Start : 03-May-2022 Active hydroCHLOROthiazide 25 mg oral tablet (20 sources) Thiazide Diuretic Start : 11-11 End: 09-26 take 1 tablet by mouth once daily Hydrochlorothiazide 25 mg tablet Discontinued 25 mg PO DAILY 90 0 May 28, 2024 10:22am September 26, 2024 1:00pm Start: 07-14-2022 take 1 tablet by mildred th once daily hydroCHLOROthiazide 25 mg oral tablet 1 (one) tablet daily for 30 days Quantity: 30 {Tablet} Refills: 2 Ordered: 14-Jul-2022 Muriel Pop DO, DO, Kathleen Start : 14-Jul-2022 Active Start: 05-03-2022 take 1 tablet by mildred once daily hydroCHLOROthiazide 25 mg oral tablet 1 (one) tablet daily for 30 days Quantity: 30 {Tablet} Refills: 2 Ordered: 03-May-2022 Muriel Pop DO, DO, Kathleen Start : 03-May-2022 Active Comment on above: Mail order. hyoscyamine sulfate 0.125 mg oral tablet (20 sources) Start: 11-11-2022 End: 06-28-2024 Hyoscyamine Sulfate 0.125 mg tablet Discontinued 0.125 mg PO 1 to 2 times per day 60 0 January 17, 2023 12:27pm June 28, 2024 3:06pm Start: 07-14-2022 take 1 tablet by mildred once daily as needed hyoscyamine sulfate 0.125 mg oral tablet 1 (one) tablet daily as needed for 90 days Quantity: 90 {Tablet} Refills: 3 Ordered: 14-Jul-2022 Muriel Pop DO, DO, Kathleen Start : 14-Jul-2022 Active Comments: Mail order. Medication taken as needed. Start: 05-03-2022 take 1 tablet by mildred once daily as needed hyoscyamine sulfate 0.125 mg oral tablet 1 (one) tablet daily as needed for 90 days Quantity: 90 {Tablet} Refills: 3 Ordered: 03-May-2022 Muriel Pop DO, DO, Kathleen Start : 03-May-2022 Active Comments: Mail order. Medication taken as needed. Comment on above: Mail order. Medicati on taken as needed. LORazepam 1 mg oral tablet (20 sources) Benzodiazepine Start: 3 End: take 1 tablet by mouth once daily as needed for anxiety Lorazepam 1 mg tablet Discontinued 1 mg PO DAILY as needed for anxiety 10 October 20, 2023 1:25pm June 29, 2024 9:27am Anxiety and depression Anxiety disorder, unspecified Depression, unspecified losartan potassium 50 mg oral tablet (20 sources) Angiotensin 2 Receptor Oumar Start: 3 End: 5 take 1 tablet by mouth twice daily Losartan 50 mg tablet Discontinued 50 mg PO TWICE A DAY 180 0 June 04, 2024 2:14pm September 13, 2024 8:40am Start: 07-14-2022 take 2 tablets by [facility] once daily losartan 50 mg oral tablet 2 Tablet daily for 90 days Quantity: 180 {Tablet} Refills: 3 Ordered: 14-Jul-2022 Muriel Pop DO, DO, Kathleen Start : 14-Jul-2022 Active Comments: Mail order. Start: 05-03-2022 take 2 tablets by mo uth once daily losartan 50 mg oral tablet 2 Tablet daily for 90 days Quantity: 180 {Tablet} Refills: 3 Ordered: 03-May-2022 Muriel Pop DO, DO, Kathleen Start : 03-May-2022 Active Comments: Mail order. Comment on above: Mail order. Problems Active Problems Problem Classification Problem Date Documented Da te Episodic/Chronic Anxiety disorders (20 sources) Mixed anxiety and depressive disorder; Translations: [Anxiety and depression] 05-03-2022 Chronic Disorders of lipid metabolism (20 sources) Hypercholesterolemi a; Translations: [Hypercholesteremia ] 05-03-2022 Chronic Essential hypertension (20 sources) Hypertensive disorder; Translations: [Hypertension] Onset: 08-14-2024 05-03-2022 Chronic Genitourinary symptoms and ill-defined conditions (8 sources) Microalbuminuria; Translations: [Microalbuminuria] Onset: 11-22-2024 05-13-2022 Episodic Headache; including migraine (10 sources) Chronic tension-type headache; Translations: [Chronic tension headaches] 05-03-2022 Chronic Other bone disease and musculoskeletal deformities (4 sources) Other specified disorders of bone, unspecified site; Translations: [Bone island] 01-26-2024 Episodic Other connective tissue disease (5 sources) Spasm; Translations: [Other muscle spasm] 06-28-2024 Episodic Other gastrointestinal disorders (10 sources) Irritable bowel syndrome; Translations: [IBS (irritable bowel syndrome)] 05-03-2022 Chronic Other nutritional; endocrine; and metabolic disorders (4 sources) Hypercalcemia; Translations: [Hypercalcemia] 10-20-2023 Chronic Other nutritional; endocrine; and metabolic disorders (1 source) Hypercalcemia; Translations: [Hypercalcemia] Onset: 03-05-2024 Chronic Other screening for suspected conditions (not mental disorders or infectious disease) (15 sources) Patient encounter status; Translations: [Encounter for screening for malignant neoplasm of colon] Onset: 12-08-2023 01-17-2023 Episodic Other upper respiratory infections (10 sources) Acute pharyngitis; Translations: [Acute pharyngitis, unspecified] 01-27-2023 Episodic Residual codes; unclassified (10 sources) Body mass index 20-24 - normal; Translations: [BMI 24.0-24.9, adult] 05-03-2022 Episodic Residual codes; unclassified (10 sources) Family history of hemochromatosis; Translations: [Family history of hemochromatosis] 05-03-2022 Episodic Residual codes; unclassified (13 sources) Non-smoker; Translations: [Nonsmoker] 05-03-2022 Episodic Residual codes; unclassified (17 sources) Kidney donor; Translations: [Donor of kidney for transplant] 11-11-2022 Episodic Residual codes; unclassified (4 sources) Current drinker; Translations: [Other specified health status] 10-20-2023 Episodic Unclassified (8 sources) Urinary tract infections (2 sources) Cystitis; Translations: [Cystitis, unspecified without hematuria] 11-29-2024 Episodic Past or Other Problems Problem Classification Problem Date Documented Da te Episodic/Chronic Other aftercare (1 source) Encounter for therapeutic drug level monitoring; Translations: [Encounter for therapeutic drug level monitoring] Onset: 06-28-2024 Episodic Results Test Name Value Interpretation Reference Range Facility Urine Cultureon 11-21-2024 URC #1, 2 Below infectio n level. Gram negative nany [place] Count <1000 Mixed Gram Positive Organisms Mixed Gram Positive Organisms [facility] Mixed contaminants. Submit a new specimen if indicated. Normal [facility] Comment on above: Performed By: #### M 100.2200 #### [facility] [address] [place], [place], [id number] Laboratory - Chemistry and C hemistry - challengeOrdered By: Eleno Ramirez on 11-19-2024 Bilirubin Ql (U) Negative [facility] Glucose Ql (U) Negative [facility] Ketones Ql (U) Negative [facility] pH (U) 7.5 [pH] [facility] Specific gravity (U) [Rel density] 1.005 [facility] Urobilinogen (U) [Mass/Vol] 0.4694080 mg/dL [facility] - Hematology and Cell countsOrdered By: Eleno Ramirez on 11-19-2024 Hemoglobin Ql (U) Hemolyzed [facility] - Specimen inform ationOrdered By: Eleno Ramirez on 11-19-2024 Clarity (U) Clear [facility] Color (U) YELLOW [facility] - UrinalysisOrder ed By: Eleno Ramirez on 11-19-2024 Nitrite Ql (U) Negative [facility] Protein Ql (U) 1+ [facility] No Panel InformationOrdered By: Eleno Ramirez on 11-19-2024 Urine Leukocytes Positive [facility] Urine Non-Hemolyzed Blood Large [facility] Urgent Care Visit Reporton 0 11-19-2024 Urgent Care Visit Report [facility] [address], [address] [place] [address] OFFICE VISIT Date of Service: 11/19/24 MR#: [id number] Acct: [id number] Name: KANDACE RASHEED Rep #: [id number] 2 : 1960 Provider: BRONSON Quintanilla Age/Sex: 63/F Location: [facility] Status: Signed Intake Vital Signs 06/28/24 13:40 11/19/24 11:00 11/19/24 12:38 Height 5 ft 4 in 5 ft 4 in Weight: 145 lb 6 oz BMI 24.9 BP 164/88 H 120/60 Blood Pressure Location Lt brachial Position Sitting Sitting Respiration 16 18 Pulse 80 106 H Pulse Source Monitor Temp 97.6 F L 99.8 F H Temp Source Temporal Oral Pulse Oximetry (%) 99 97 Oxygen Delivery Method room air room air Intake Visit Reasons: concern for uti Accompanied by: Self Allergies bee venom protein (honey bee) Allergy (Severe, Verified 11/19/24 12:46) Shortness of breath crab Allergy (Severe, Verified 11/19/24 12:46) Swelling nitrofurantoin (From Macrobid) Allergy (Severe, Verified 11/19/24 12:46) Shortness of breath Medications ???Medication ???Instructions ???Recorded ???Confirmed ???Type Turmeric Curcumin 1 ea PO DAILY 11/11/22 11/19/24 Hi story cholecalciferol (vitamin D3) 50 50 mcg PO DAILY 11/11/22 11/19/24 History mcg (2,000 unit) capsule coenzyme Q10 100 mg capsule (Co 100 mg PO DAILY 11/11/22 11/19/24 History Q-10) collagen peptide 1 ea PO DAILY 11/11/22 11/19/24 Hi story diphenhydramine HCl 25 mg capsule 25 mg PO QHS PRN ALLERGIES 11/19/24 History magnesium 250 mg tablet 250 mg PO DAILY 11/11/22 11/19/24 History multivitamin 1 tab PO DAILY 11/11/22 11/19/24 H istory omega 7-bpl-yka-fish oil 60 mg-90 1 cap PO DAILY 11/11/22 11/19/24 History mg-500 mg capsule (Fish Oil) psyllium husk 0.52 gram capsule 0.52 g PO DAILY 11/11/22 11/19/24 History vitamin B complex 1 cap PO DAILY 11/11/22 11/19/24 H istory thiamine HCl (vitamin B1) 50 mg 50 mg PO DAILY 01/17/23 11/19/24 H istory tablet potassium 1 ea PO Q OTHER DAY 02/14/2311/19 History pyridoxine (vitamin B6) 10 mg 10 mg PO DAILY 10/20/23 11/19/24 H istory tablet triamcinolone acetonide 0.1 % 1 applic topical DAILY PRN 4 11/19/24 Rx topical cream Dermatitis #80 grams cyclobenzaprine 5 mg tablet 5 mg PO TID PRN muscle spasm #21 1 06/28/23 11/19/24 Rx tabs atorvastatin 10 mg tablet 10 mg PO Q OTHER DAY #90 tabs 01/0 11/1411/19/24 Rx hyoscyamine sulfate 0.125 mg tablet 0.125 mg PO QD-BID PRN dyspepsi a 06/28/24 11/19/24 Rx #60 tabs paroxetine HCl 20 mg tablet 20 mg PO BID 3 months #180 tabs 11/19/24 Rx lorazepam 1 mg tablet 1 mg PO DAILY PRN anxiety #10 tabs 06/29/24 11/19/24 Rx losartan 50 mg tablet 50 mg PO BID #180 tabs 09/13/24 Rx amlodipine 5 mg tablet 5 mg PO DAILY #90 TABLETS 09/26/24 11/19/24 Rx hydrochlorothiazide 25 mg tablet 25 mg PO DAILY #90 tabs 09/26/24 0 11/19/24 Rx ciprofloxacin HCl 500 mg tablet 500 mg PO BID #10 tabs 11/19/24 Rx Nurse's Note: Patient has concerns for a UTI. Patient states last night she had frequency and then this morning she had burning and low grade fever and feels crummy. [facility] Medical History (Updated 06/28/24 @ 16:[address] Jono Alvarez MD) Muscle spasm Medication monitoring encounter Bony growth Hypercalcemia Wears glasses Alcohol use Depression Anxiety History of IBS Former smoker History of echocardiogram Colon cancer screening Health care maintenance Renal donor Hyperlipidemia Difficulty sleeping Ocular migraine Cardiac murmur High cholesterol Hypertension Tension headache IBS (irritable bowel syndrome) Anxiety and depression Seasonal allergies Surgical History Hx of colonoscopy History of kidney removal History of tonsillectomy Social History Smoking Status: Former smoker alcohol intake: current alcohol intake frequency: a few times a week substance use type: does not use what type of physical activity do you participate in: walking frequency: 5-6 times per week HPI HPI Details: KANDACE RASHEED, is a 63 F who presents to the office today for initial evaluation at [facility] for approximately 24-hour history of dysuria and urinary frequency with suprapubic pressure - along w/ mild chills and trace aching low back pain. No complaints of fever, sweats, lightheadedness/dizzi ness, nausea/vomiting, or chest pain/shortness of breath/dyspnea on exertion/mid-back pain. No tttk-zqy-cxplomi products taken to assist. No other associated symptoms and no alleviating/aggravati ng factors. ROS Const Constitutional: No other (As above) Exam Const General: coop (more content not included)... Normal [facility] Urine cultureOrdered By: Isai Ramirez on 11-19-2024 Bacteria identified Cx Nom (U) Negative Abnormal [facility] Bacteria identified Cx Nom (U) Positive Abnormal [facility] 12 Lead EKGon 08-06-2024 12 Lead EKG [facility] Cardiovascular Services [address] [place] [address] 12 Lead EKG 08/06/24 1212 MR#: [id number] Acct: [id number] Name: KANDACE RASHEED Rep #: [id number] : 1960 63 From: Lewis Beaulieu MD Attending Dr: Dr. Jono Alvarez MD Status: REG CLI Ordering Dr: Jono Alvarez MD Date: 08/06/24 Location: [facility] Sex: F C Admitted: Test Reason : HTN Blood Pressure : */* mmHG Vent. Rate : 77 BPM Atrial Rate : 77 BPM P-R Int : 156 ms QRS Dur : 84 ms QT Int : 400 ms P-R-T Axes : 63 19 33 degrees QTcB Int : 452 ms Normal sinus rhythm Normal ECG Confirmed by LEWIS BEAULIEU MD ([id number]), film and video editor KRYSTIN SCHMID ([id number]) on 08/06/2024 1:41:25 PM Referred By: Jono Alvarez Confirmed By: LEWIS BEAULIEU MD 08/06/24 1341 Date Lewis Beaulieu MD CC: Dr. Jono Alvarez MD Signed Normal [facility] Electrocardiogram reportOrde red By: Lewis Beaulieu on 08-06-2024 EKG study [facility] Cardiovascular Services [address] [place] [address] 12 Lead EKG 08/06/24 1212 MR#: [id number] Acct: [id number] Name: KANDACE RASHEED Rep #:[id number] : 1960 63 From: Lewis Beaulieu MD Attending Dr: Dr. Jono Alvarez MD Status: REG CLI Ordering Dr: Jono Alvarez MD Date: 08/06/24 Location: [facility] Sex: F C Admitted: Test Reason : HTN Blood Pressure : */* mmHG Vent. Rate : 77 BPM Atrial Rate : 77 BPM P-R Int : 156 ms QRS Dur : 84 ms QT Int : 400 ms P-R-T Axes : 63 19 33 degrees QTcB Int : 452 ms Normal sinus rhythm Normal ECG Confirmed by BRITTNEE MENDEZ, LEWIS ([id number]), film and video editor KRYSTIN SCHMID ([id number]) on 51:41:25 PM Referred By: Jono Alvarez Confirmed By: LEWIS BEAULIEU MD 08/06/24 1341 Date _ Lewis Beaulieu MD CC: Dr. Jono Alvarez MD ~ Signed [facility] Work Phone: Absolute neutrophil countOrd ered By: Jono Alvarez on 06-28-2024 Neutrophils (Bld) [#/Vol] 5.8 10*3/uL 2.0-7.7 [facility] Albumin to globulin ratioOrd ered By: Jono Alvarez on 06-28-2024 Albumin/Globulin [Mass ratio] 1.3 {ratio} 0.9-2.4 [facility] Basophil percentageOrdered B y: Jono Alvarez on 06-28-2024 Basophils/100 WBC (Bld) 0.9 % 0-1 [facility] Bilirubin, totalOrdered By: Jono Alvarez on 06-28-2024 Bilirubin [Mass/Vol] 0.50 mg/dL 0.20-1.00 [facility] Comment on above: For patients on eltr ombopag therapy, use of Dimension [place] TBIL is not recommended. Blood urea nitrogen (BUN)/cr eatinine ratioOrdered By: Jono Alvarez on 06-28-2024 Urea nitrogen/Creatinine [Mass ratio] 14.6 mg/mg 10-20 [facility] CBC W/Diff, Automatedon Absolute Lymph 2.52 X10 3/uL Normal 0.83-4.51 [facility] Comment on above: Performed By: #### L 100.0100, L500.4100, L500.4050 #### [facility] [address] [place], [address] Absolute Neut 5.8 X10 3/uL Normal 2.0-7.7 [facility] Comment on above: Performed By: #### L 100.0100, L500.4100, L500.4050 #### [facility] [address] [place], [address] Basophils/100 WBC (Bld) 0.9 % Normal 0-1 [facility] Comment on above: Performed By: #### L 100.0100, L500.4100, L500.4050 #### [facility] [address] [place], [address] Eosinophils/100 WBC (Bld) 1.9 % Normal 0-5 [facility] Comment on above: Performed By: #### L 100.0100, L500.4100, L500.4050 #### [facility] [address] [place], [address] Erythrocyte distribution width (RBC) [Ratio] 12.8 % Normal 11.6-14.6 [facility] Comment on above: Performed By: #### L 100.0100, L500.4100, L500.4050 #### [facility] [address] [place], [address] Hematocrit (Bld) [Volume fraction] 44.4 % Normal 37-47 [facility] Comment on above: Performed By: #### L 100.0100, L500.4100, L500.4050 #### [facility] [address] [place], [address] Hemoglobin (Bld) [Mass/Vol] 15.1 g/dL High 12.0-15.0 [facility] Comment on above: Performed By: #### L 100.0100, L500.4100, L500.4050 #### [facility] [address] [place], [address] IG% 0.400 Normal 0.0-0.9 [facility] Comment on above: Result Comment: IG% - Immature Granulocytes (promyelocytes, myelocytes and metamyelocytes) > 1% indicates that a LEFT SHIFT is Present. Performed By: #### L 100.0100, L500.4100, L500.4050 #### [facility] [address] [place], [address] Lymphocytes/100 WBC (Bld) 26.6 % Normal 19-41 [facility] Comment on above: Performed By: #### L 100.0100, L500.4100, L500.4050 #### [facility] [address] [place], [address] MCH (RBC) [Entitic mass] 30.7 pg Normal 27.0-32.0 [facility] Comment on above: Performed By: #### L 100.0100, L500.4100, L500.4050 #### [facility] [address] [place], [address] MCHC (RBC) [Mass/Vol] 34.0 g/dL Normal 32-36 [facility] Comment on above: Performed By: #### L 100.0100, L500.4100, L500.4050 #### [facility] [address] [place], [address] MCV (RBC) [Entitic vol] 90.2 fL Normal 81-99 [facility] Comment on above: Performed By: #### L 100.0100, L500.4100, L500.4050 #### [facility] [address] [place], [address] Monocytes/100 WBC (Bld) 9.2 % Normal 0-10 [facility] Comment on above: Performed By: #### L 100.0100, L500.4100, L500.4050 #### [facility] [address] [place], [address] Neutrophils/100 WBC (Bld) 61.0 % Normal 47-70 [facility] Comment on above: Performed By: #### L 100.0100, L500.4100, L500.4050 #### [facility] [address] [place], [address] Nucleated RBC (Bld) [#/Vol] 0 10*3/uL Normal 0-5 [facility] Comment on above: Performed By: #### L 100.0100, L500.4100, L500.4050 #### [facility] [address] [place], [address] Platelet mean volume (Bld) [Entitic vol] 14.1 fL High 6.2-12.0 [facility] Comment on above: Performed By: #### L 100.0100, L500.4100, L500.4050 #### [facility] [address] [place], [address] Platelets (Bld) [#/Vol] 256 10*3/uL Normal 150-450 [facility] Comment on above: Performed By: #### L 100.0100, L500.4100, L500.4050 #### [facility] [address] [place], [address] RBC (Bld) [#/Vol] 4.92 10*6/uL Normal 4.2-5.4 [facility] Comment on above: Performed By: #### L 100.0100, L500.4100, L500.4050 #### [facility] [address] [place], [address] RDW SD 42.4 fl Normal 35.1-43.9 [facility] Comment on above: Performed By: #### L 100.0100, L500.4100, L500.4050 #### [facility] [address] [place], [address] WBC (Bld) [#/Vol] 9.5 10*3/uL Normal 4.4-11.0 [facility] Comment on above: Performed By: #### L 100.0100, L500.4100, L500.4050 #### [facility] [address] [place], [address] Carbon dioxide measurementOr dered By: Jono Alvarez on 06-28-2024 CO2 [Moles/Vol] 27.0 mmol/L 21.0-32.0 [facility] Chloride measurementOrdered By: Jono Alvarez on 06-28-2024 Chloride [Moles/Vol] 94 mmol/L Low 98-107 [facility] Comprehensive Metabolic Prof ilon 06-28-2024 Albumin [Mass/Vol] 4.6 g/dL Normal 3.2-5.0 [facility] Comment on above: Performed By: #### L 100.0100, L500.4100, L500.4050 #### [facility] [address] [place], [address] Albumin/Globulin [Mass ratio] 1.3 {ratio} Normal 0.9-2.4 [facility] Comment on above: Performed By: #### L 100.0100, L500.4100, L500.4050 #### [facility] [address] [place], [address] ALK P 67 U/L Normal 45-117 [facility] Comment on above: Performed By: #### L 100.0100, L500.4100, L500.4050 #### [facility] [address] [place], [address] ALT [Catalytic activity/Vol] 33 U/L Normal 13-56 [facility] Comment on above: Performed By: #### L 100.0100, L500.4100, L500.4050 #### [facility] [address] [place], [address] AST [Catalytic activity/Vol] 23 U/L Normal 15-37 [facility] Comment on above: Performed By: #### L 100.0100, L500.4100, L500.4050 #### [facility] [address] [place], [address] Bilirubin [Mass/Vol] 0.50 mg/dL Normal 0.20-1.00 [facility] Comment on above: Result Comment: For patients on eltrombopag therapy, use of Dimension [place] TBIL is not recommended. Performed By: #### L 100.0100, L500.4100, L500.4050 #### [facility] [address] [place], [address] BUN/CRE 14.6 RATIO Normal 10-20 [facility] Comment on above: Performed By: #### L 100.0100, L500.4100, L500.4050 #### [facility] [address] [place], [address] CA,Total 9.9 mg/dL Normal 8.5-10.1 [facility] Comment on above: Performed By: #### L 100.0100, L500.4100, L500.4050 #### [facility] [address] [place], [address] Chloride [Moles/Vol] 94 mmol/L Low 98-107 [facility] Comment on above: Performed By: #### L 100.0100, L500.4100, L500.4050 #### [facility] [address] [place], [address] CO2 [Moles/Vol] 27.0 mmol/L Normal 21.0-32.0 [facility] Comment on above: Performed By: #### L 100.0100, L500.4100, L500.4050 #### [facility] [address] [place], [address] Creatinine [Mass/Vol] 0.75 mg/dL Normal 0.55-1.02 [facility] Comment on above: Result Comment: The validity of the calculated GFR GFRAA in patients over 70 years has not been determined. Clinical correlation is essential. Performed By: #### L 100.0100, L500.4100, L500.4050 #### [facility] [address] [place], [address] EST GFR - AA 100 mL/min Normal >60 [facility] Comment on above: Result Comment: Afri can Ugandan GFR Calc Performed By: #### L 100.0100, L500.4100, L500.4050 #### [facility] [address] [place], [address] GAP 10 Normal 5-15 [facility] Comment on above: Performed By: #### L 100.0100, L500.4100, L500.4050 #### [facility] [address] [place], [address] GFR/1.73 sq M.predicted among non-blacks MDRD (S/P/Bld) [Vol rate/Area] 83 mL/min/{1.73_m2} Normal >60 [facility] Comment on above: Result Comment: Non- GFR Calc Performed By: #### L 100.0100, L500.4100, L500.4050 #### [facility] [address] [place], [address] Globulin (S) [Mass/Vol] 3.5 g/dL Normal 2.2-4.2 [facility] Comment on above: Performed By: #### L 100.0100, L500.4100, L500.4050 #### [facility] [address] [place], [address] Glucose [Mass/Vol] 114 mg/dL High 74-106 [facility] Comment on above: Result Comment: Fast ing Glucose result from 100 to 125 mg/dL suggests IMPAIRED HOMEOSTASIS per A.D.A. criteria. Performed By: #### L 100.0100, L500.4100, L500.4050 #### [facility] [address] [place], [address] Potassium [Moles/Vol] 3.8 mmol/L Normal 3.5-5.1 [facility] Comment on above: Performed By: #### L 100.0100, L500.4100, L500.4050 #### [facility] [address] [place], [address] Sodium [Moles/Vol] 131 mmol/L Low 136-145 [facility] Comment on above: Performed By: #### L 100.0100, L500.4100, L500.4050 #### [facility] [address] [place], [address] T PROT 8.1 g/dL Normal 6.4-8.2 [facility] Comment on above: Performed By: #### L 100.0100, L500.4100, L500.4050 #### [facility] [address] [place], [address] Urea nitrogen [Mass/Vol] 11 mg/dL Normal 7-18 [facility] Comment on above: Performed By: #### L 100.0100, L500.4100, L500.4050 #### [facility] [place], [address] Eosinophil percentageOrdered By: Jono Alvarez on 06-28-2024 Eosinophils/100 WBC (Bld) 1.9 % 0-5 [facility] Erythrocyte distribution wid th ratioOrdered By: Jono Alvarez on 06-28-2024 Erythrocyte distribution width (RBC) [Ratio] 12.8 % 11.6-14.6 [facility] Erythrocyte distribution wid th standard deviationOrdered By: Jono Alvarez on 06-28-2024 Erythrocyte distribution width (RBC) [Entitic vol] 42.4 fL 35.1-43.9 [facility] Estimated glomerular filtrat ion rate (GFR) AmericanOrdered By: Jono Alvarez on 06-28-2024 Estimated GFR (MDRD) Amer 100 mL/min >60 [facility] Comment on above: GFR Calc Glomerular filtration rate ( GFR) estimationOrdered By: Jono Alvarez on 06-28-2024 Estimated GFR (MDRD) Non-Af Amer 83 mL/min >60 [facility] Comment on above: Non- GFR Calc Glucose measurementOrdered B y: Jono Alvarez on 06-28-2024 Glucose [Mass/Vol] 114 mg/dL High 74-106 [facility] Comment on above: Fasting Glucose resu lt from 100 to 125 mg/dL suggests IMPAIRED HOMEOSTASIS per A.D.A. criteria. Hematocrit Auto (Bld) [Volum e fraction]Ordered By: Jono Alvarez on 06-28-2024 Hematocrit (Bld) [Volume fraction] 44.4 % 37-47 [facility] Hemoglobin measurementOrdere d By: Jono Alvarez on 06-28-2024 Hemoglobin (Bld) [Mass/Vol] 15.1 g/dL High 12.0-15.0 [facility] High density lipoprotein (HD L) measurementOrdered By: Jono Alvarez on 02-06-2025 Cholesterol in HDL [Mass/Vol] 87 mg/dL >40 [facility] Comment on above: The drugs N-Acetylcy steine and Metamizole may falsely depress this assay. Reference Range HDL <40 mg/dL Low HDL Cholesterol HDL >or= 60 mg/dL High HDL Cholesterol Immature granulocytes/100 WB C Auto (Bld)Ordered By: Jono Alvarez on 06-28-2024 Immature granulocytes/100 WBC (Bld) 0.400 % 0.0-0.9 [facility] Comment on above: IG% - Immature Granu locytes (promyelocytes, myelocytes and metamyelocytes) > 1% indicates that a LEFT SHIFT is Present. Internal Medicine Office Vis iton 06-28-2024 Internal Medicine Office Visit [facility] [place] [address] [place] [address] OFFICE VISIT Date of Service: 06/28/24 MR#: [id number] Acct: [id number] Name: KANDACE RASHEED Rep #: [id number] : 1960 Provider: Dr. Jono sahu MD Age/Sex: 63/F Location: [facility] Status: Signed Intake Vital Signs 01/26/24 13:43 06/28/24 13:40 Height 5 ft 4 in 5 ft 4 in Weight: 144 lb 145 lb 6 oz BMI 24.7 24.9 BP 142/88 H 164/88 H Blood Pressure Location Lt brachial Lt brachial Position Sitting Sitting Respiration 16 16 Pulse 96 80 Pulse Source Monitor Monitor Temp 97.9 F 97.6 F L Temp Source Temporal Temporal Pulse Oximetry (%) 99 99 Oxygen Delivery Method room air room air Intake Visit Reasons: 4 M FU Chief Complaint: 4 mos follow up Stain Dipper Required: No Accompanied by: Self Is patient in pain?: No Allergies bee venom protein (honey bee) Allergy (Severe, Verified 06/28/24 13:37) Shortness of breath crab Allergy (Severe, Verified 06/28/24 13:37) Swelling nitrofurantoin (From Macrobid) Allergy (Severe, Verified 06/28/24 13:37) Shortness of breath Medications ???Medication ???Instructions ???Recorded ???Confirmed ???Type Turmeric Curcumin 1 ea PO DAILY 11/11/22 06/28/24 Hi story cholecalciferol (vitamin D3) 50 50 mcg PO DAILY 11/11/22 06/28/24 History mcg (2,000 unit) capsule coenzyme Q10 100 mg capsule (Co 100 mg PO DAILY 11/11/22 06/28/24 History Q-10) collagen peptide 1 ea PO DAILY 11/11/22 06/28/24 Hi story diphenhydramine HCl 25 mg capsule 25 mg PO QHS PRN ALLERGIES 06/28/24 History magnesium 250 mg tablet 250 mg PO DAILY 11/11/22 06/28/24 History multivitamin 1 tab PO DAILY 11/11/22 06/28/24 H istory omega 9-heh-dej-fish oil 60 mg-90 1 cap PO DAILY 11/11/22 06/28/24 History mg-500 mg capsule (Fish Oil) psyllium husk 0.52 gram capsule 0.52 g PO DAILY 11/11/22 06/28/24 History vitamin B complex 1 cap PO DAILY 11/11/22 06/28/24 H istory thiamine HCl (vitamin B1) 50 mg 50 mg PO DAILY 01/17/23 06/28/24 H istory tablet potassium 1 ea PO Q OTHER DAY 02/14/2306/28 History lorazepam 1 mg tablet 1 mg PO DAILY PRN anxiety #10 tabs 10/20/23 06/28/24 Rx pyridoxine (vitamin B6) 10 mg 10 mg PO DAILY 10/20/23 06/28/24 H istory tablet triamcinolone acetonide 0.1 % 1 applic topical DAILY PRN 4 06/28/24 Rx topical cream Dermatitis #80 grams cyclobenzaprine 5 mg tablet 5 mg PO TID PRN muscle spasm #21 1 06/28/23 06/28/24 Rx tabs amlodipine 5 mg tablet 5 mg PO DAILY #90 TABLETS 05/28/24 06/28/24 Rx atorvastatin 10 mg tablet 10 mg PO Q OTHER DAY #90 tabs 11/1406/28/24 Rx hydrochlorothiazide 25 mg tablet 25 mg PO DAILY #90 tabs 05/28/24 0 06/28/24 Rx losartan 50 mg tablet 50 mg PO BID #180 tabs 06/04/24 Rx hyoscyamine sulfate 0.125 mg tablet 0.125 mg PO QD-BID PRN dyspepsi a 06/28/24 06/28/24 Rx #60 tabs paroxetine HCl 20 mg tablet 20 mg PO BID 3 months #180 tabs 06/28/24 Rx Have you fallen in the past year?: No PFSH Medical History (Updated 06/28/24 @ 16:[address] Jono Alvarez MD) Muscle spasm Medication monitoring encounter Bony growth Hypercalcemia Wears glasses Alcohol use Depression Anxiety History of IBS Former smoker History of echocardiogram Colon cancer screening Health care maintenance Renal donor Hyperlipidemia Difficulty sleeping Ocular migraine Cardiac murmur High cholesterol Hypertension Tension headache IBS (irritable bowel syndrome) Anxiety and depression Seasonal allergies Surgical History Hx of colonoscopy History of kidney removal History of tonsillectomy Social History Smoking Status: Former smoker alcohol intake: current alcohol intake frequency: a few times a week substance use type: does not use what type of physical activity do you participate in: walking frequency: 5-6 times per week HPI HPI Chief Complaint: 4 mos follow up Details: KANDACE RASHEED, is a 63 F who presents to the office today for follow-up of her chronic conditions. Also has some concerns. History of hypertension, typically elevated blood pressure readings during her visits. Home log reviewed and overall, stable blood pressure. She states that she is taking her medication consistently. History of anxiety currently on paroxetine. Typically during the winter months, she has noted increased anxiety and depression. In the past, she has increased her dose of paroxetine to help her cope with this. She is also on lorazepam which she only uses as absolutely needed. Last prescribed in September 2023, still has a few left. She questions if she should increase her (more content not included)... Normal [facility] - Chemistry and C hemistry - challengeOrdered By: Jono Alvarez on 06-28-2024 AST [Catalytic activity/Vol] 23 U/L 15-37 [facility] Lipid Profileon 06-28-2024 Cholesterol [Mass/Vol] 193 mg/dL Normal [address] [facility] Comment on above: Result Comment: <200 mg/dL Desirable 200-240 mg/dL Borderline >240 mg/dL High Risk Performed By: #### L 100.0100, L500.4100, L500.4050 #### [facility] [address] [place], [address] Cholesterol in HDL [Mass/Vol] 87 mg/dL Normal [facility] Comment on above: Result Comment: The drugs N-Acetylcysteine and Metamizole may falsely depress this assay. Reference Range HDL <40 mg/dL Low HDL Cholesterol HDL >or= 60 mg/dL High HDL Cholesterol Performed By: #### L 100.0100, L500.4100, L500.4050 #### [facility] [address] [place], [address] Cholesterol in LDL [Mass/Vol] 84 mg/dL Normal 0-130 [facility] Comment on above: Performed By: #### L 100.0100, L500.4100, L500.4050 #### [facility] [address] [place], [address] Cholesterol in VLDL [Mass/Vol] 22 mg/dL Normal 5-40 [facility] Comment on above: Performed By: #### L 100.0100, L500.4100, L500.4050 #### [facility] [address] [place], [address] Triglyceride [Mass/Vol] 110 mg/dL Normal [facility] Comment on above: Result Comment: The drugs N-Acetylcysteine and Metamizole may falsely depress this assay. Serum Triglycerides Reference Interval Normal <150 mg/dL Borderline high 150 - 199 mg/dL High 200 - 499 mg/dL Very High > or = 500 mg/dL Performed By: #### L 100.0100, L500.4100, L500.4050 #### [facility] [address] [place], [address] Low density lipoprotein (LDL ) cholesterol measurementOrdered By: Jono Alvarez on 06-28-2024 Cholesterol in LDL [Mass/Vol] 84 mg/dL 0-130 [facility] Lymphocytes Auto (Unsp spec) [#/Vol]Ordered By: Jono Alvarez on 06-28-2024 Lymphocytes (Bld) [#/Vol] 2.52 10*3/uL 0.83-4.51 [facility] Lymphocytes/100 WBC Auto (Un sp spec)Ordered By: Jono Alvarez on 06-28-2024 Lymphocytes/100 WBC (Bld) 26.6 % 19-41 [facility] MCV (mean corpuscular volume ) determinationOrdered By: Jono Alvarez on 06-28-2024 MCV (RBC) [Entitic vol] 90.2 fL 81-99 [facility] Mean corpuscular hemoglobin (MCH) determinationOrdered By: Jono Alvarez on 06-28-2024 MCH (RBC) [Entitic mass] 30.7 pg 27.0-32.0 [facility] Mean corpuscular hemoglobin concentration (MCHC) determinationOrdered By: delmi Alvarez on 06-28-2024 MCHC (RBC) [Mass/Vol] 34.0 g/dL 32-36 [facility] Mean platelet volume determi nationOrdered By: Jono Alvarez on 06-28-2024 Platelet mean volume (Bld) [Entitic vol] 14.1 fL High 6.2-12.0 [facility] Monocyte percentageOrdered B y: Jono Alvarez on 06-28-2024 Monocytes/100 WBC (Bld) 9.2 % 0-10 [facility] Neutrophil percentageOrdered By: Jono Alvarez on 06-28-2024 Neutrophils/100 WBC (Bld) 61.0 % 47-70 [facility] Nucleated red blood cell per centageOrdered By: Jono Alvarez on 06-28-2024 Nucleated RBC/100 WBC (Bld) [Ratio] 0 % 0-5 [facility] Platelet countOrdered By: Baldomero Alvarez on 06-28-2024 Platelets (Bld) [#/Vol] 256 10*3/uL 150-450 [facility] Potassium measurementOrdered By: Jono Alvarez on 06-28-2024 Potassium [Moles/Vol] 3.8 mmol/L 3.5-5.1 [facility] RBC Auto (Bld) [#/Vol]Ordere d By: Jono Alvarez on 06-28-2024 RBC (Bld) [#/Vol] 4.92 10*6/uL 4.2-5.4 [facility] Serum anion gap measurementO rdered By: Jono Alvarez on 06-28-2024 Anion gap [Moles/Vol] 10 mmol/L 5-15 [facility] Serum globulin measurementOr dered By: Jono Alvarez on 06-28-2024 Globulin (S) [Mass/Vol] 3.5 g/dL 2.2-4.2 [facility] Serum or plasma alanine grider otransferase (ALT) measurementOrdered By: Jono Alvarez on 06-28-2024 ALT [Catalytic activity/Vol] 33 U/L 13-56 [facility] Serum or plasma albumin leno urement (mass/volume)Ordered By: Jono Alvarez on 06-28-2024 Albumin [Mass/Vol] 4.6 g/dL 3.2-5.0 [facility] Serum or plasma alkaline louise sphatase measurementOrdered By: Jono Alvarez on 06-28-2024 ALP [Catalytic activity/Vol] 67 U/L 45-117 [facility] Serum or plasma calcium leno urement (mass/volume)Ordered By: Jono Alvarez on 06-28-2024 Calcium [Mass/Vol] 9.9 mg/dL 8.5-10.1 [facility] Serum or plasma cholesterol measurement (mass/volume)Ordered By: Jono Alvarez on 06-28-2024 Cholesterol [Mass/Vol] 193 mg/dL <[address] [facility] Comment on above: <200 mg/dL Desirable 200-240 mg/dL Borderline >240 mg/dL High Risk Serum or plasma creatinine m easurement (mass/volume)Ordered By: Jono Alvarez on 06-28-2024 Creatinine [Mass/Vol] 0.75 mg/dL 0.55-1.02 [facility] Comment on above: The validity of the calculated GFR & GFRAA in patients over 70 years has not been determined. Clinical correlation is essential. Serum or plasma urea nitroge n measurement (mass/volume)Ordered By: Jono Alvarez on 06-28-2024 Urea nitrogen [Mass/Vol] 11 mg/dL 7-18 [facility] Sodium levelOrdered By: Ana M josephjun Kim on 06-28-2024 Sodium [Moles/Vol] 131 mmol/L Low 136-145 [facility] [facility] Total proteinOrdered By: Mandeep Alvarez on 06-28-2024 Protein [Mass/Vol] 8.1 g/dL 6.4-8.2 [facility] Triglycerides measurementOrd ered By: Jono Alvarez on 06-28-2024 Triglyceride [Mass/Vol] 110 mg/dL <199 [facility] Comment on above: The drugs N-Acetylcy steine and Metamizole may falsely depress this assay.Serum Triglycerides Reference Interval Normal <150 mg/dL Borderline high 150 - 199 mg/dL High 200 - 499 mg/dL Very High > or = 500 mg/dL Very low density lipoprotein (VLDL) cholesterol measurementOrdered By: Jono Alvarez on 06-28-2024 VLDL Cholesterol 22 mg/dL 5-40 [facility] White blood cell (WBC) count Ordered By: Jono Alvarez on 06-28-2024 WBC (Bld) [#/Vol] 9.5 10*3/uL 4.4-11.0 [facility] PTHINon 02-07-2024 PTH 32.9 pg/mL Normal 18.4-80.1 [facility] Comment on above: Performed By: #### L 509.1000 ####[facility] [id number] [place], [address] Basic Metabolic Profile (BMP )on 01-26-2024 BUN/CRE 21.8 RATIO High 10-20 [facility] Comment on above: Performed By: #### L 506.1000, L500.2500 #### [facility] [address] [place], [address] CA,Total 10.4 mg/dL High 8.5-10.1 [facility] Comment on above: Performed By: #### L 506.1000, L500.2500 #### [facility] [address] [place], [address] Chloride [Moles/Vol] 94 mmol/L Low 98-107 [facility] Comment on above: Performed By: #### L 506.1000, L500.2500 #### [facility] [address] [place], [address] CO2 [Moles/Vol] 31.0 mmol/L Normal 21.0-32.0 [facility] Comment on above: Performed By: #### L 506.1000, L500.2500 #### [facility] [address] [place], [address] Creatinine [Mass/Vol] 0.82 mg/dL Normal 0.55-1.02 [facility] Comment on above: Result Comment: The validity of the calculated GFR GFRAA in patients over 70 years has not been determined. Clinical correlation is essential. Performed By: #### L 506.1000, L500.2500 #### [facility] [address] [place], [address] EST GFR - AA 90 mL/min Normal >60 [facility] Comment on above: Result Comment: Afri can Ugandan GFR Calc Performed By: #### L 506.1000, L500.2500 #### [facility] [address] [place], [address] GAP 7 Normal 5-15 [facility] Comment on above: Performed By: #### L 506.1000, L500.2500 #### [facility] [address] [place], [address] GFR/1.73 sq M.predicted among non-blacks MDRD (S/P/Bld) [Vol rate/Area] 74 mL/min/{1.73_m2} Normal >60 [facility] Comment on above: Result Comment: Non- GFR Calc Performed By: #### L 506.1000, L500.2500 #### [facility] [address] [place], [address] Glucose [Mass/Vol] 119 mg/dL High 74-106 [facility] Comment on above: Result Comment: Fast ing Glucose result from 100 to 125 mg/dL suggests IMPAIRED HOMEOSTASIS per A.D.A. criteria. Performed By: #### L 506.1000, L500.2500 #### [facility] [address] [place], [address] Potassium [Moles/Vol] 4.4 mmol/L Normal 3.5-5.1 [facility] Comment on above: Performed By: #### L 506.1000, L500.2500 #### [facility] [address] [place], [address] Sodium [Moles/Vol] 132 mmol/L Low 136-145 [facility] Comment on above: Performed By: #### L 506.1000, L500.2500 #### [facility] [address] [place], [address] Urea nitrogen [Mass/Vol] 18 mg/dL Normal 7-18 [facility] Comment on above: Performed By: #### L 506.1000, L500.2500 #### [facility] [address] [place], [address] Internal Medicine Office Vis suyapa 01-26-2024 Internal Medicine Office Visit [facility] [address] [place] [address] [place] [address] OFFICE VISIT Date of Service: 01/26/24 MR#: [id number] Acct: [id number] Name: SEVENJENNIFERKANDACE BACK Rep #: [id number] : 1960 Provider: Dr. Jono sahu MD Age/Sex: 63/F Location: [facility] Status: Signed Intake Vital Signs 10/20/23 13:01 01/26/24 13:43 Height 5 ft 4 in 5 ft 4 in Weight: 144 lb BMI 24.7 BP 142/88 H Blood Pressure Location Lt brachial Position Sitting Respiration 16 Pulse 96 Pulse Source Monitor Temp 97.9 F Temp Source Temporal Pulse Oximetry (%) 99 Oxygen Delivery Method room air Intake Visit Reasons: 3 m fu Chief Complaint: FU Chronic Conditions Stain Dipper Required: No Is patient in pain?: No Allergies bee venom protein (honey bee) Allergy (Severe, Verified 01/26/24 13:34) Shortness of breath crab Allergy (Severe, Verified 01/26/24 13:34) Swelling nitrofurantoin (From Macrobid) Allergy (Severe, Verified 01/26/24 13:34) Shortness of breath Medications ???Medication ???Instructions ???Recorded ???Confirmed ???Type Turmeric Curcumin 1 ea PO DAILY 11/11/22 01/26/24 History cholecalciferol (vitamin D3) 50 50 mcg PO DAILY 11/11/22 01/26/24 History mcg (2,000 unit) capsule coenzyme Q10 100 mg capsule (Co 100 mg PO DAILY 11/11/22 01/26/24 History Q-10) collagen peptide 1 ea PO DAILY 11/11/22 01/26/24 History diphenhydramine HCl 25 mg capsule 25 mg PO QHS PRN ALLERGIES 11/11/22 01/26/24 History magnesium 250 mg tablet 250 mg PO DAILY 11/11/22 01/26/24 History multivitamin 1 tab PO DAILY 11/11/22 01/26/24 History omega 1-hkp-etw-fish oil 60 mg-90 1 cap PO DAILY 11/11/22 01/26/24 History mg-500 mg capsule (Fish Oil) psyllium husk 0.52 gram capsule 0.52 g PO DAILY 11/11/22 01/26/24 History vitamin B complex 1 cap PO DAILY 11/11/22 01/26/24 History atorvastatin 10 mg tablet 10 mg PO Q OTHER DAY #90 tabs 01/17/23 01/26/24 Rx hyoscyamine sulfate 0.125 mg tablet 0.125 mg PO QD-BID #60 tabs 01/17/23 01/26/24 Rx thiamine HCl (vitamin B1) 50 mg 50 mg PO DAILY 01/17/23 01/26/24 History tablet potassium 1 ea PO Q OTHER DAY 02/14/23 01/26/24 History cyclobenzaprine 5 mg tablet 5 mg PO TID PRN muscle spasm #21 09/27/23 01/26/24 Rx tabs hydrochlorothiazide 25 mg tablet 25 mg PO DAILY #90 tabs 09/27/23 01/26/24 Rx lorazepam 1 mg tablet 1 mg PO DAILY PRN anxiety #10 tabs 10/20/23 01/26/24 Rx losartan 50 mg tablet 50 mg PO BID #180 tabs 10/20/23 01/26/24 Rx paroxetine HCl 20 mg tablet 30 mg (1.5 x 20 mg) PO DAILY 3 10/20/23 01/26/24 Rx months #135 tabs pyridoxine (vitamin B6) 10 mg 10 mg PO DAILY 10/20/23 01/26/24 History tablet triamcinolone acetonide 0.1 % 1 applic topical DAILY PRN 10/20/23 01/26/24 Rx topical cream Dermatitis #80 grams amlodipine 5 mg tablet 5 mg PO DAILY #90 TABLETS 01/26/24 01/26/24 Rx PFSH Medical History (Updated 01/26/24 @ 16:[address] Jono Alvarez MD) Bony growth Hypercalcemia Wears glasses Alcohol use Depression Anxiety History of IBS Former smoker History of echocardiogram Colon cancer screening Health care maintenance Renal donor Hyperlipidemia Difficulty sleeping Ocular migraine Cardiac murmur High cholesterol Hypertension Tension headache IBS (irritable bowel syndrome) Anxiety and depression Seasonal allergies Surgical History Hx of colonoscopy History of kidney removal History of tonsillectomy Social History Smoking Status: Former smoker alcohol intake: current alcohol intake frequency: a few times a week substance use type: does not use what type of physical activity do you participate in: walking frequency: 5-6 times per week HPI HPI Chief Complaint: FU Chronic Conditions Details: KANDACE RASHEED, is a 63 F who presents to the office today for follow-up of her chronic medical condition. No acute concerns at this time. History of anxiety/depression and at her last visit, symptoms were not well-controlled however with recent medication changes she states that she is doing a lot better. Also restarted therapy which she has found very helpful. Tolerating medication at current regimen. History of hypertension, blood pressure in office today at 142/88 however she did come in with her log which shows readings ranging from a low of 111/63 to a high of 130/79. Taking her medication as prescribed. No chest pain, palpitation or shortness of breath. Other chronic medical conditions are stable. ROS Const Constitutional: No body ache, chills, excessive sweating, fatigue, fever(s), frequent falls, headache(s), snoring, weakness, sleep problems or change in appetite Eyes Eyes: No (more content not included)... Normal [facility] Vitamin D,25 Hydroxyon 01-25 Vitamin D 25-OH 39.4 ng/mL Normal [facility] Comment on above: Result Comment: Nubia min D 25(OH) Status Range Deficiency <20 ng/mL (50nmol/L) Insufficiency 20 - 30 ng/mL (50 - 75 nmol/L) Sufficiency 30 - 100 ng/mL (75 - 250 nmol/L) Toxicity >100 ng/mL (>250 nmol/L) Performed By: #### L 506.1000, L500.2500 #### [facility] [address] [place], [address] SCRN MAMM (CAD)W/STACIE BILATo n 12-02-2023 SCRN MAMM (CAD)W/STACIE BILAT [facility] Imaging Services [address] [place] [address] SCRN MAMM (CAD)W/STACIE BILAT MR#: [id number] Acct: [id number] Name: KANDACE RASHEED Rep #: [id number] : 1960 F 63 From: Humza mathew MD PCP: Dr. Jono Alvarez MD Status: REG CLI Study: SCRN MAMM (CAD)W/STACIE BILAT Date of Exam: 11/20 07/16 Exam# [id number] Ordering Dr: Jono Alvarez MD [id number] MAMMOGRAPHY - BILATERAL SCREENING REASON FOR EXAM: Female, 63 years old. Routine annual screening examination. PERTINENT HISTORY: Aunt with breast cancer. TECHNIQUE: Digital bilateral breast stacie (3D mammographic acquisition) in the CC and MLO projections. 2-D mediolateral oblique (MLO) and craniocaudad (CC) views of both breasts were obtained. CAD: Full Field Digital Mammography with Computer Added Detection was performed. COMPARISON: Comparison is made with prior study dated November 22, 2022 and September 29, 2021. FINDINGS: Breast Composition: The breasts are heterogeneously dense, which may obscure small masses. There are no dominant masses or suspicious calcifications. Stable bilateral secretory calcifications. No focal cluster is seen. No other significant abnormalities are identified. There has been no significant change since the prior study. BI/SCRN MAMM (CAD)W/STACIE BILAT IMPRESSION: Stable bilateral screening mammogram. Yearly follow-up mammogram recommended. (A) ASSESSMENT CATEGORY: BIRADS Category 2: Benign. A letter regarding these results will be sent to the patient by the facility within 30 days. Approximately 10% of breast cancers are not detected by mammography. A normal mammogram should not delay biopsy of a clinically suspicious abnormality. [id number] Electronically Signed: Humza Hoffman MD at 9:55 EDT , CC: Dr. Jono Alvarez MD Salesperson Art Objects: Signed Normal [facility] Absolute lymphocyte countOrd ered By: Jono Alvarez on 04-21-2023 Lymphocytes Auto (Unsp spec) [#/Vol] 2.68 10*3/uL 0.83-4.51 [facility] Basophil percentageOrdered B y: Jono Alvarez on 04-21-2023 Basophils/100 WBC (Bld) 1.1 % 0-1 [facility] Bilirubin [Mass/Vol] 0.50 mg/dL 0.20-1.00 [facility] Comment on above: For patients on eltr ombopag therapy, use of Dimension [place] TBIL is not recommended. Chloride [Moles/Vol] 101 mmol/L 98-107 [facility] Cholesterol [Mass/Vol] 209 mg/dL <[address] [facility] Comment on above: <200 mg/dL Desirable 200-240 mg/dL Borderline >240 mg/dL High Risk Eosinophils/100 WBC (Bld) 1.0 % 0-5 [facility] Glucose [Mass/Vol] 104 mg/dL 74-106 [facility] Comment on above: Fasting Glucose resu lt from 100 to 125 mg/dL suggests IMPAIRED HOMEOSTASIS per A.D.A. criteria. Neutrophils (Bld) [#/Vol] 5.5 10*3/uL 2.0-7.7 [facility] Neutrophils/100 WBC (Bld) 59.9 % 47-70 [facility] Potassium [Moles/Vol] 3.8 mmol/L 3.5-5.1 [facility] Protein [Mass/Vol] 7.9 g/dL 6.4-8.2 [facility] Sodium [Moles/Vol] 135 mmol/L 136-145 [facility] Triglyceride [Mass/Vol] 57 mg/dL <199 [facility] Comment on above: The drugs N-Acetylcy steine and Metamizole may falsely depress this assay.Serum Triglycerides Reference Interval Normal <150 mg/dL Borderline high 150 - 199 mg/dL High 200 - 499 mg/dL Very High > or = 500 mg/dL WBC (Bld) [#/Vol] 9.1 10*3/uL 4.4-11.0 [facility] Blood erythrocytes count (nu mber/volume)Ordered By: Jono Alvarez on 04-21-2023 RBC (Bld) [#/Vol] 4.90 10*6/uL 4.2-5.4 [facility] Blood hemoglobin measurement (mass/volume)Ordered By: Jono Alvarez on 04-21-2023 Hemoglobin (Bld) [Mass/Vol] 14.7 g/dL 12.0-15.0 [facility] Blood lymphocytes/100 leukoc ytesOrdered By: anthonyamboydirk Alvarez on 04-21-2023 Lymphocytes/100 WBC (Bld) 29.4 % 19-41 [facility] Blood monocytes/100 leukocyt esOrdered By: anthonyamboydirk Alvarez on 04-21-2023 Monocytes/100 WBC (Bld) 8.3 % 0-10 [facility] Blood platelet mean volumeOr dered By: anthonyamboydirk Alvarez on 04-21-2023 Platelet mean volume (Bld) [Entitic vol] 14.7 fL 6.2-12.0 [facility] Determination of erythrocyte mean corpuscular volume (MCV)Ordered By: Jono Alvarez on 04-21-2023 MCV (RBC) [Entitic vol] 89.8 fL 81-99 [facility] Hematocrit Auto (Bld) [Volum e fraction]Ordered By: anthonyamboydirk Alvarez on 04-21-2023 Hematocrit (Bld) [Volume fraction] 44.0 % 37-47 [facility] - Chemistry and C hemistry - challengeOrdered By: Jono Alvarez on 04-21-2023 ALP [Catalytic activity/Vol] 57 U/L 45-117 [facility] ALT [Catalytic activity/Vol] 27 U/L 13-56 [facility] CO2 [Moles/Vol] 30.0 mmol/L 21.0-32.0 [facility] Globulin (S) [Mass/Vol] 3.5 g/dL 2.2-4.2 [facility] Urea nitrogen/Creatinine [Mass ratio] 11.8 mg/mg 10-20 [facility] - Hematology and Cell countsOrdered By: Jono Alvarez on 04-21-2023 Erythrocyte distribution width (RBC) [Entitic vol] 43.3 fL 35.1-43.9 [facility] Erythrocyte distribution width (RBC) [Ratio] 13.2 % 11.6-14.6 [facility] Immature granulocytes/100 WBC (Bld) 0.300 % 0.0-0.9 [facility] Comment on above: IG% - Immature Granu locytes (promyelocytes, myelocytes and metamyelocytes) > 1% indicates that a LEFT SHIFT is Present. MCH (RBC) [Entitic mass] 30.0 pg 27.0-32.0 [facility] Nucleated RBC/100 WBC (Bld) [Ratio] 0 % 0-5 [facility] MCHC Auto (RBC) [Mass/Vol]Or dered By: Jono Alvarez on 04-21-2023 MCHC (RBC) [Mass/Vol] 33.4 g/dL 32-36 [facility] No Panel InformationOrdered By: Jono Alvarez on 04-21-2023 Estimated GFR (MDRD) Amer 78 mL/min >60 [facility] Comment on above: GFR Calc Estimated GFR (MDRD) Non-Af Amer 64 mL/min >60 [facility] Comment on above: Non- GFR Calc Platelets bldOrdered By: Mandeep Alvarez on 04-21-2023 Platelets (Bld) [#/Vol] 258 10*3/uL 150-450 [facility] Serum or plasma albumin leno urement (mass/volume)Ordered By: Jono Alvarez on 04-21-2023 Albumin [Mass/Vol] 4.4 g/dL 3.2-5.0 [facility] Serum or plasma albumin/glob ulin mass ratioOrdered By: Jono Alvarez on 04-21-2023 Albumin/Globulin [Mass ratio] 1.3 {ratio} 0.9-2.4 [facility] Serum or plasma calcium leno urement (mass/volume)Ordered By: Jono Alvarez on 04-21-2023 Calcium [Mass/Vol] 9.6 mg/dL 8.5-10.1 [facility] Serum or plasma cholesterol in HDL measurement (mass/volume)Ordered By: Jono Alvarez on 04-21-2023 Cholesterol in HDL [Mass/Vol] 83 mg/dL >40 [facility] Comment on above: The drugs N-Acetylcy steine and Metamizole may falsely depress this assay. Reference Range HDL <40 mg/dL Low HDL Cholesterol HDL >or= 60 mg/dL High HDL Cholesterol Serum or plasma cholesterol in VLDL measurement (mass/volume)Ordered By: Jono Alvarez on 04-21-2023 Cholesterol in VLDL [Mass/Vol] 11 mg/dL 5-40 [facility] Serum or plasma creatinine m easurement (mass/volume)Ordered By: Jono Alvarez on 04-21-2023 Creatinine [Mass/Vol] 0.94 mg/dL 0.55-1.02 [facility] Comment on above: The validity of the calculated GFR & GFRAA in patients over 70 years has not been determined. Clinical correlation is essential. Serum or plasma low density lipoprotein (LDL) cholesterol measurement (mass/volume)Ordered By: Jono Alvarez on 04-21-2023 Cholesterol in LDL [Mass/Vol] 115 mg/dL 0-130 [facility] Serum or plasma urea nitroge n measurement (mass/volume)Ordered By: Jono Alvarez on 04-21-2023 Urea nitrogen [Mass/Vol] 11 mg/dL 7-18 [facility] Thin prep Papanicolaou smear with manual screeningOrdered By: Jono Alvarez on 04-21-2023 Thin prep Papanicolaou smear with manual screening 24 U/L 15-37 [facility] Thin prep Papanicolaou smear with manual screening 4 5-15 [facility] Basophil percentageOrdered B y: Jono Alvarez on 01-17-2023 Chloride [Moles/Vol] 99 mmol/L 98-107 [facility] Glucose [Mass/Vol] 112 mg/dL 74-106 [facility] Comment on above: Fasting Glucose resu lt from 100 to 125 mg/dL suggests IMPAIRED HOMEOSTASIS per A.D.A. criteria. Potassium [Moles/Vol] 4.3 mmol/L 3.5-5.1 [facility] Sodium [Moles/Vol] 136 mmol/L 136-145 [facility] - Chemistry and C hemistry - challengeOrdered By: Jono Alvarez on 01-17-2023 CO2 [Moles/Vol] 30.0 mmol/L 21.0-32.0 [facility] Urea nitrogen/Creatinine [Mass ratio] 15.4 mg/mg 10-20 [facility] No Panel InformationOrdered By: Jono Alvarez on 01-17-2023 Estimated GFR (MDRD) Amer 107 mL/min >60 [facility] Comment on above: GFR Calc Estimated GFR (MDRD) Non-Af Amer 88 mL/min >60 [facility] Comment on above: Non- GFR Calc Urine Microalbumin/Creatinine Ratio TNP [facility] Comment on above: Test not performed Serum or plasma calcium leno urement (mass/volume)Ordered By: Jono Alvarez on 01-17-2023 Calcium [Mass/Vol] 10.0 mg/dL 8.5-10.1 [facility] Serum or plasma creatinine m easurement (mass/volume)Ordered By: Jono Alvarez on 01-17-2023 Creatinine [Mass/Vol] 0.71 mg/dL 0.55-1.02 [facility] Comment on above: The validity of the calculated GFR & GFRAA in patients over 70 years has not been determined. Clinical correlation is essential. Serum or plasma urea nitroge n measurement (mass/volume)Ordered By: Jono Alvarez on 01-17-2023 Urea nitrogen [Mass/Vol] 11 mg/dL 7-18 [facility] Thin prep Papanicolaou smear with manual screeningOrdered By: Jono Alvarez on 01-17-2023 Thin prep Papanicolaou smear with manual screening 7 5-15 [facility] Thin prep Papanicolaou smear with manual screening < 5.0 mg/L NO RANGE EST. [facility] Urine creatinine measurement (mass/volume)Ordered By: Jono Alvarez on 01-17-2023 Creatinine (U) [Mass/Vol] 14.10 mg/dL NO RANGE EST. [facility] Basophil percentageOrdered B y: Jono Alvarez on 11-22-2022 Chloride [Moles/Vol] 98 mmol/L 98-107 [facility] Glucose [Mass/Vol] 110 mg/dL 74-106 [facility] Comment on above: Fasting Glucose resu lt from 100 to 125 mg/dL suggests IMPAIRED HOMEOSTASIS per A.D.A. criteria. Potassium [Moles/Vol] 4.5 mmol/L 3.5-5.1 [facility] Sodium [Moles/Vol] 135 mmol/L 136-145 [facility] - Chemistry and C hemistry - challengeOrdered By: Jono Alvarez on 11-22-2022 CO2 [Moles/Vol] 34.0 mmol/L 21.0-32.0 [facility] Urea nitrogen/Creatinine [Mass ratio] 20.8 mg/mg 10-20 [facility] No Panel InformationOrdered By: Jono Alvarez on 11-22-2022 Estimated GFR (MDRD) Amer 91 mL/min >60 [facility] Comment on above: GFR Calc Estimated GFR (MDRD) Non-Af Amer 76 mL/min >60 [facility] Comment on above: Non- GFR Calc Urine Microalbumin/Creatinine Ratio 71.7 mg/g CRE <30 [facility] Serum or plasma calcium leno urement (mass/volume)Ordered By: Jono Alvarez on 11-22-2022 Calcium [Mass/Vol] 10.3 mg/dL 8.5-10.1 [facility] Serum or plasma creatinine m easurement (mass/volume)Ordered By: Jono Alvarez on 11-22-2022 Creatinine [Mass/Vol] 0.82 mg/dL 0.55-1.02 [facility] Comment on above: The validity of the calculated GFR & GFRAA in patients over 70 years has not been determined. Clinical correlation is essential. Serum or plasma urea nitroge n measurement (mass/volume)Ordered By: Jono Alvarez on 11-22-2022 Urea nitrogen [Mass/Vol] 17 mg/dL 7-18 [facility] Thin prep Papanicolaou smear with manual screeningOrdered By: Jono Alvarez on 11-22-2022 Thin prep Papanicolaou smear with manual screening 3 5-15 [facility] Thin prep Papanicolaou smear with manual screening 13.4 mg/L NO RANGE EST. [facility] Urine creatinine measurement (mass/volume)Ordered By: Jono Alvarez on 11-22-2022 Creatinine (U) [Mass/Vol] 18.70 mg/dL NO RANGE EST. [facility] CBC W/AUTO DIFF WBC ([id number])O rdered By: [employer] Mixer on 05-05-2022 Basophils (Bld) [#/Vol] 0.1 10*3/uL Normal 0.0-0.2 [facility]; [facility] Work Phone: Comment on above: PATIENT WAS FASTINGP ERFORMED BY: CB [facility] [id number] [facility] [id number] Basophils/100 WBC (Bld) 1 % Normal [facility]; [facility] Work Phone: Comment on above: PATIENT WAS FASTINGP ERFORMED BY: CB [facility] [id number] [facility]Good [facility] [id number] Eosinophils (Bld) [#/Vol] 0.2 10*3/uL Normal 0.0-0.4 [facility]; [facility] Work Phone: Comment on above: PATIENT WAS FASTINGP ERFORMED BY: CB [facility] [id number] [address] RoadOnslow Memorial Hospitalin [place] [id number] Eosinophils/100 WBC (Bld) 3 % Normal [facility]; [facility] Work Phone: Comment on above: PATIENT WAS FASTINGP ERFORMED BY: CB [facility] [id number] [facility] [id number] Erythrocyte distribution width (RBC) [Ratio] 12.2 % Normal 11.7-15.4 [facility]; [facility] Work Phone: Comment on above: PATIENT WAS FASTINGP ERFORMED BY: CB [facility] [id number] [facility] [id number] Hematocrit (Bld) [Volume fraction] 44.6 % Normal 34.0-46.6 [facility]; [facility] Work Phone: Comment on above: PATIENT WAS FASTINGP ERFORMED BY: [facility] [id number]Dublin [place] [id number] Hemoglobin (Bld) [Mass/Vol] 14.8 g/dL Normal 11.1-15.9 [facility]; [facility] Work Phone: Comment on above: PATIENT WAS FASTINGP ERFORMED BY: [facility] [id number] [address]Dublin [place] [id number] Immature granulocytes (Bld) [#/Vol] 0.0 10*3/uL Normal 0.0-0.1 [facility]; [facility] Work Phone: Comment on above: PATIENT WAS FASTINGP ERFORMED BY: [facility] [id number] [address] RoadDublin [place] [id number] Immature granulocytes/100 WBC (Bld) 0 % Normal [facility]; [facility] Work Phone: Comment on above: PATIENT WAS FASTINGP ERFORMED BY: [facility] [id number] [address] RoadDublin [place] [id number] Lymphocytes (Bld) [#/Vol] 3.0 10*3/uL Normal 0.7-3.1 [facility]; [facility] Work Phone: Comment on above: PATIENT WAS FASTINGP ERFORMED BY: [facility] [id number]Dublin [place] [id number] Lymphocytes/100 WBC (Bld) 39 % Normal [facility]; [facility] Work Phone: Comment on above: PATIENT WAS FASTINGP ERFORMED BY: [facility] [id number]Dublin [place] [id number] MCH (RBC) [Entitic mass] 30.3 pg Normal 26.6-33.0 [facility]; [facility] Work Phone: Comment on above: PATIENT WAS FASTINGP ERFORMED BY: [facility] [id number] [address]Dublin [place] [id number] MCHC (RBC) [Mass/Vol] 33.2 g/dL Normal 31.5-35.7 [facility]; [facility] Work Phone: Comment on above: PATIENT WAS FASTINGP ERFORMED BY: ANAI [facility] [id number]Dublin [place] [id number] MCV (RBC) [Entitic vol] 91 fL Normal 79-97 [facility]; [facility] Work Phone: Comment on above: PATIENT WAS FASTINGP ERFORMED BY: CB [facility] Lpaflj9912 [address] RoadDublin [place] [id number] Monocytes (Bld) [#/Vol] 0.7 10*3/uL Normal 0.1-0.9 [facility]; [facility] Work Phone: Comment on above: PATIENT WAS FASTINGP ERFORMED BY: ANAI [facility] Ciiazl3018 [address] RoadDublin [place] [id number] Monocytes/100 WBC (Bld) 9 % Normal [facility]; [facility] Work Phone: Comment on above: PATIENT WAS FASTINGP ERFORMED BY: CB [facility] Jcbsco0540 [address] RoadDublin [place] [id number] Neutrophils (Bld) [#/Vol] 3.8 10*3/uL Normal 1.4-7.0 [facility]; [facility] Work Phone: Comment on above: PATIENT WAS FASTINGP ERFORMED BY: CB [facility] Hxdtna8490 [address]Dublin [place] [id number] Neutrophils/100 WBC (Bld) 48 % Normal [facility]; [facility] Work Phone: Comment on above: PATIENT WAS FASTINGP ERFORMED BY: CB [facility] Mdwexr9733 [address] RoadDublin [place] [id number] Platelets (Bld) [#/Vol] 270 10*3/uL Normal 150-450 [facility]; [facility] Work Phone: Comment on above: PATIENT WAS FASTINGP ERFORMED BY: CB [facility] Novafe5033 [address]Dublin [place] [id number] RBC (Bld) [#/Vol] 4.89 10*6/uL Normal 3.77-5.28 [facility]; [facility] Work Phone: Comment on above: PATIENT WAS FASTINGP ERFORMED BY: CB [facility] Ostsdk2249 [address]Dublin [place] [id number] WBC (Bld) [#/Vol] 7.8 10*3/uL Normal 3.4-10.8 [facility]; [facility] Work Phone: Comment on above: PATIENT WAS FASTINGP ERFORMED BY: CB [facility] Nanmkk2467 [address]Dublin [place] [id number] FERRITIN ([id number])Ordered By: Glass Enamel Mixer on 05-05-2022 Ferritin [Mass/Vol] 120 ng/mL Normal 15-150 [facility]; [facility] Work Phone: Comment on above: PATIENT WAS FASTINGP ERFORMED BY: ANAI [facility] Yyzopg3943 [address] RoadDublin [place] [id number] IRON BINDING CAPACITY (TIBC) ([id number])Ordered By: Glass Enamel Mixer on 05-05-2022 Iron [Mass/Vol] 94 ug/dL Normal 27-[address] [facility]; [facility] Work Phone: Comment on above: PATIENT WAS FASTINGP ERFORMED BY: CB [facility] Xfpmco9067 [address]Dublin [place] [id number] Iron binding capacity [Mass/Vol] 294 ug/dL Normal 250-450 [facility]; [facility] Work Phone: Comment on above: PATIENT WAS FASTINGP ERFORMED BY: CB [facility] Rlopts0933 [address]Dublin [place] [id number] Iron binding capacity.unsaturated [Mass/Vol] 200 ug/dL Normal 118-369 [facility]; [facility] Work Phone: Comment on above: PATIENT WAS FASTINGP ERFORMED BY: CB [facility] Kwgzha9476 [address]Dublin [place] [id number] Iron saturation [Mass fraction] 32 % Normal 15-55 [facility]; [facility] Work Phone: Comment on above: PATIENT WAS FASTINGP ERFORMED BY: ANAI [facility] Odtfgk4525 [address]Dublin [place] [id number] LIPID PANEL ([id number])Ordered B y: Glass Enamel Mixer on 05-05-2022 Cholesterol [Mass/Vol] 170 mg/dL Normal 100-199 [facility]; [facility] Work Phone: Comment on above: PATIENT WAS FASTINGP ERFORMED BY: CB [facility] Bwtyof0455 [address]Dublin [place] [id number] Cholesterol in HDL [Mass/Vol] 71 mg/dL Normal [facility]; [facility] Work Phone: Comment on above: PATIENT WAS FASTINGP ERFORMED BY: CB [facility] Jhwybx5623 [address]Dublin [place] [id number] Triglyceride [Mass/Vol] 49 mg/dL Normal 0-149 [facility]; [facility] Work Phone: Comment on above: PATIENT WAS FASTINGP ERFORMED BY: CB [facility] Hzgiru7066 [address] RoadDublin [place] [id number] LIPID PANEL ([id number]) 10 mg/dL Normal 5-40 Compr ensive [facility]; [facility] Work Phone: Comment on above: PATIENT WAS FASTINGP ERFORMED BY: CB [facility] Skfbeo7254 [address]Dublin [place] [id number] LIPID PANEL ([id number]) 89 mg/dL Normal 0-99 Compr ensive [facility]; [facility] Work Phone: Comment on above: PATIENT WAS FASTINGP ERFORMED BY: CB [facility] Blyxml5736 [address]Dublin [place] [id number] LIPID PANEL (43031) 1.3 {ratio} Normal 0.0-3.2 Comp [facility]; [facility] Work Phone: Comment on above: LDL/HDL Ratio Men Wo men 1/2 Avg.Risk 1.0 1.5 Avg.Risk 3.6 3.2 2X Avg.Risk 6.2 5.0 3X Avg.Risk 8.0 6.1 PATIENT WAS FASTINGP ERFORMED BY: CB [facility] Gusgui1665 [address]Dublin [place] [id number] METABOLIC PANEL, COMPREHENSI VE ([id number])Ordered By: Glass Enamel Mixer on 05-05-2022 Albumin [Mass/Vol] 5.0 g/dL Abnormal 3.8-4.8 [facility]; [facility] Work Phone: Comment on above: PATIENT WAS FASTINGP ERFORMED BY: CB [facility] Lfxdrs6394 [address]Dublin [place] [id number] Albumin/Globulin [Mass ratio] 2.3 {ratio} Abnormal 1.2-2.2 [facility]; [facility] Work Phone: Comment on above: PATIENT WAS FASTINGP ERFORMED BY: CB [facility] Rbzpft4244 [address]Dublin [place] [id number] ALP [Catalytic activity/Vol] 57 U/L Normal 44-121 [facility]; [facility] Work Phone: Comment on above: PATIENT WAS FASTINGP ERFORMED BY: CB [facility] Wrprco8563 [address]Dublin [place] [id number] ALT [Catalytic activity/Vol] 17 U/L Normal 0-32 [facility]; [facility] Work Phone: Comment on above: PATIENT WAS FASTINGP ERFORMED BY: CB [facility] Kfqwye5285 [address] RoadDublin [place] [id number] AST [Catalytic activity/Vol] 24 U/L Normal 0-40 [facility]; [facility] Work Phone: Comment on above: PATIENT WAS FASTINGP ERFORMED BY: CB [facility] Bifdub5938 [address]Dublin [place] [id number] Bilirubin [Mass/Vol] 0.4 mg/dL Normal 0.0-1.2 [facility] Internal Medicine; [facility] Work Phone: Comment on above: PATIENT WAS FASTINGP ERFORMED BY: CB [facility] Xbpahg9102 [address]Dublin [place] [id number] Calcium [Mass/Vol] 9.9 mg/dL Normal 8.7-10.3 [facility]; [facility] Work Phone: Comment on above: PATIENT WAS FASTINGP ERFORMED BY: ANAI [facility] Smiouw5760 [address] RoadOnslow Memorial Hospitalin [place] [id number] Chloride [Moles/Vol] 95 mmol/L Abnormal 96-106 Comp rehensive Internal Medicine; [facility] Work Phone: Comment on above: PATIENT WAS FASTINGP ERFORMED BY: [facility] Njskdh[address] [facility]in [place] [id number] CO2 [Moles/Vol] 27 mmol/L Normal 20-29 Comprehen [facility]; [facility] Work Phone: Comment on above: PATIENT WAS FASTINGP ERFORMED BY: [facility] Ziongy9616 [facility] [id number] Creatinine [Mass/Vol] 0.81 mg/dL Normal 0.57-1.00 Com prehensive Internal Medicine; [facility] Work Phone: Comment on above: PATIENT WAS FASTINGP ERFORMED BY: ANAI [facility] Fhbcax5785 [facility] [id number] GFR/1.73 sq M.predicted among non-blacks MDRD (S/P/Bld) [Vol rate/Area] 83 mL/min/{1.73_m2} Normal Comprehensiv e Internal Medicine; [facility] Work Phone: Comment on above: PATIENT WAS FASTINGP ERFORMED BY: [facility] Lwygdd5787 [facility] [id number] Globulin (S) [Mass/Vol] 2.2 g/dL Normal 1.5-4.5 C omprehensive Internal Medicine; [facility] Work Phone: Comment on above: PATIENT WAS FASTINGP ERFORMED BY: [facility] Afgsfp8843 [facility] [id number] Glucose [Mass/Vol] 89 mg/dL Normal 70-99 Compre [facility]ive [facility]; [facility] Work Phone: Comment on above: PATIENT WAS FASTINGP ERFORMED BY: ANAI [facility] Udspwk6347 [address] RoadDublin [place] [id number] Potassium [Moles/Vol] 4.8 mmol/L Normal 3.5-5.2 [facility]; [facility] Work Phone: Comment on above: PATIENT WAS FASTINGP ERFORMED BY: ANAI [facility] Pzjkpy9764 [address]Dublin [place] [id number] Protein [Mass/Vol] 7.2 g/dL Normal 6.0-8.5 [facility] Internal [facility]; [facility] Work Phone: Comment on above: PATIENT WAS FASTINGP ERFORMED BY: ANAI [facility] Dgkcgq1908 [address] RoadDublin [place] [id number] Sodium [Moles/Vol] 138 mmol/L Normal 134-144 [facility] Internal [facility]; [facility] Work Phone: Comment on above: PATIENT WAS FASTINGP ERFORMED BY: ANAI [facility] Zjaolw1801 [address] RoadDublin [place] [id number] Urea nitrogen [Mass/Vol] 10 mg/dL Normal 8-27 [facility]; [facility] Work Phone: Comment on above: PATIENT WAS FASTINGP ERFORMED BY: ANAI [facility] Ndekyi7428 [address] Roadblin [place] [id number] Urea nitrogen/Creatinine [Mass ratio] 12 mg/mg Normal 12-28 [facility]; [facility] Work Phone: Comment on above: PATIENT WAS FASTINGP ERFORMED BY: ANAI [facility] Jpztma3927 [address] Roadblin [place] [id number] MICROALBUMINOrdered By: Syst em Autotransfusionist on 05-05-2022 Albumin DL <= 20 mg/L (U) [Mass/Vol] 10.5 ug/mL Normal [facility]; [facility] Work Phone: Comment on above: PATIENT WAS FASTINGP ERFORMED BY: ANAI [facility] Dtdooa5010 [address]Dublin [place] [id number] Albumin/Creatinine (U) [Mass ratio] 40 {mg/g_creat} Abnormal 0-29 [facility]; [facility] Work Phone: Comment on above: Normal: 0 - 29 Moder ately increased: 30 - 300 Severely increased: >300 PATIENT WAS FASTINGP ERFORMED BY: ANAI Angela Byrnelin6370 [address]blin [place] [id number] Creatinine (U) [Mass/Vol] 26.1 mg/dL Normal [facility]; [facility] Work Phone: Comment on above: PATIENT WAS FASTINGP ERFORMED BY: ANAI Labsharri Zwsgzs[address] [facility]bl[facility] [place] [id number] TSH ([id number])Ordered By: [employer] m Autotransfusionist on 05-05-2022 TSH Qn 1.420 {uIU/mL} Normal 0.450-4.500 Comprehen sive Internal Medicine; [facility] Work Phone: Comment on above: PATIENT WAS FASTINGP ERFORMED BY: ANAI Labsh[facility]ri Pkhvzx[address] [facility] [place] [id number] URINALYSIS, W/ MICRO ([id number]) Ordered By: Glass Enamel Mixer on 05-05-2022 Appearance (U) Clear Normal Comprehens radha Internal Medicine; [facility] Work Phone: Comment on above: PATIENT WAS FASTINGP ERFORMED BY: ANAI Rolandodarinel ByrneNvddbt0172 [address] RoadDublin [place] [id number] Bilirubin Ql (U) Negative Normal Comprehe nsive Internal Medicine; [facility] Work Phone: Comment on above: PATIENT WAS FASTINGP ERFORMED BY: ANAI Labsharri Uzgomv[address] [facility]bl[facility] [place] [id number] Color (U) Yellow Normal [facility]; [facility] Work Phone: Comment on above: PATIENT WAS FASTINGP ERFORMED BY: ANAI [facility] Fgissf4847 [address] RoadDublin [place] [id number] Glucose Ql (U) Negative Normal Comprehens radha [facility]; [facility] Work Phone: Comment on above: PATIENT WAS FASTINGP ERFORMED BY: ANAI [facility] Xotakx9832 [address] RoadDublin [place] [id number] Hemoglobin Ql (U) Negative Normal Compreh ensive [facility] Medicine; [facility] Work Phone: Comment on above: PATIENT WAS FASTINGP ERFORMED BY: ANAI Rolandodarinel ByrneHuecgb[address] [facility] [id number] Ketones Ql (U) Negative Normal Comprehens radha [facility]; [facility] Work Phone: Comment on above: PATIENT WAS FASTINGP ERFORMED BY: ANAI Byrnelin6370 [facility] [id number] Leukocyte esterase Test strip Ql (U) 1+ Abnormal [facility]; [facility] Work Phone: Comment on above: PATIENT WAS FASTINGP ERFORMED BY: ANAI Byrnelin6370 [facility] [id number] Microscopic observation LM Nom (Urine sed) See below: Normal [facility]; [facility] Work Phone: Comment on above: Microscopic was beatrice cated and was performed. PATIENT WAS FASTINGP ERFORMED BY: ANAI Byrnelin6370 [facility] [id number] Nitrite Ql (U) Negative Normal Comprehens radha [facility] Medicine; [facility] Work Phone: Comment on above: PATIENT WAS FASTINGP ERFORMED BY: ANAI Morel6370 [facility] [id number] pH (U) 7.5 [pH] Normal 5.0-7.5 [facility]; [facility] Work Phone: Comment on above: PATIENT WAS FASTINGP ERFORMED BY: ANAI Byrnelin[address] [facility] [id number] Protein Ql (U) Negative Normal Comprehens radha [facility]; [facility] Work Phone: Comment on above: PATIENT WAS FASTINGP ERFORMED BY: ANAI Byrnelin6370 [facility] [id number] Specific gravity (U) [Rel density] 1.006 1 Normal 1.005-1.030 [facility]; [facility] Work Phone: Comment on above: PATIENT WAS FASTINGP ERFORMED BY: [facility] Pvbkpg4051 [facility] [id number] Urobilinogen (U) [Mass/Vol] 0.2 mg/dL Normal 0.2-1.0 [facility]; [facility] Work Phone: Comment on above: PATIENT WAS FASTINGP ERFORMED BY: [facility] Aflaar2631 [facility] [id number] Basophil percentageon 2021 Chloride [Moles/Vol] 100 mmol/L 98-107 [facility] Work Phone: Cholesterol [Mass/Vol] 174 mg/dL <[address] [facility] Work Phone: Comment on above: <200 mg/dL Desirable 200-240 mg/dL Borderline >240 mg/dL High Risk Glucose [Mass/Vol] 120 mg/dL 74-106 [facility] Work Phone: Comment on above: Fasting Glucose resu lt from 100 to 125 mg/dL suggests IMPAIRED HOMEOSTASIS per A.D.A. criteria. Potassium [Moles/Vol] 3.7 mmol/L 3.5-5.1 [facility] Work Phone: Sodium [Moles/Vol] 136 mmol/L 136-145 [facility] Work Phone: Triglyceride [Mass/Vol] 137 mg/dL [facility] Work Phone: Comment on above: The drugs N-Acetylcy steine and Metamizole may falsely depress this assay.Serum Triglycerides Reference Interval Normal <150 mg/dL Borderline high 150 - 199 mg/dL High 200 - 499 mg/dL Very High > or = 500 mg/dL Cervical or vagninal specime n microscopic examination by cytology stain (reported ason 08-03-2021 Cytology report Cyto stain Doc (Cvx/Vag) Comment [facility] Work Phone: Comment on above: The Pap smear is a s creening test designed to aid in thedetection of premalignant and malignant conditions of theuterine cervix. It is not a diagnostic procedure andshould not be used as the sole means of detecting cervicalcancer. Both false-positive and false-negative reports dooccur. Detection in cervical specim en of any of human papilloma virus (HPV) 16, 18, 31, 33,on 08-03-2021 HPV 16+18+31+33+35+39+45+51 +52+56+58+59+66+68 DNA Probe+sig amp Ql (Cvx) Negative Negative [facility] Work Phone: Comment on above: This nucleic acid am plification test detects fourteen high-risk HPV types (16,18,31,33,35,39,45,51,52,56,58,59,66,68)without differentiation.Performed at: [address] [id number] Director: Ruby Davila MD, Phone: [phone] at: =[facility] [id number] Director: Ruby Davila MD, Phone: [phone] Laboratory - Chemistry and C hemistry - challengeon 08-03-2021 CO2 [Moles/Vol] 29.0 mmol/L 21.0-32.0 [facility] Work Phone: Urea nitrogen/Creatinine [Mass ratio] 13.8 mg/mg 10-20 [facility] Work Phone: Laboratory - Cytologyon 07-21 [place] [employer] Cyto stain Nom (Cvx/Vag) [ID] Comment [facility] Work Phone: Comment on above: Iron Hamilton ytotechnologist (ASCP) Laboratory - Miscellaneous t estson 08-03-2021 Service comment (Unsp spec) [Interp] Comment [facility] Work Phone: Comment on above: This liquid based Th inPrep(R) pap test was screened withthe use of an image guided system. Service comment (Unsp spec) [Interp] . [facility] Work Phone: No Panel Informationon 08-03 Estimated GFR (MDRD) Amer 85 mL/min >60 [facility] Work Phone: Comment on above: GFR Calc Estimated GFR (MDRD) Non-Af Amer 70 mL/min >60 [facility] Work Phone: Comment on above: Non- GFR Calc Urine Microalbumin/Creatinine Ratio TNP [facility] Work Phone: Comment on above: Test not performed Pathology report final diagnosis Narrative Comment [facility] Work Phone: Comment on above: NEGATIVE FOR INTRAEP ITHELIAL LESION OR MALIGNANCY.CELLULAR CHANGES ASSOCIATED WITH ATROPHY ARE PRESENT. Serum or plasma calcium leno urement (mass/volume)on 08-03-2021 Calcium [Mass/Vol] 9.7 mg/dL 8.5-10.1 [facility] Work Phone: Serum or plasma cholesterol in HDL measurement (mass/volume)on 08-03-2021 Cholesterol in HDL [Mass/Vol] 77 mg/dL [facility] Work Phone: Comment on above: The drugs N-Acetylcy steine and Metamizole may falsely depress this assay. Reference Range HDL <40 mg/dL Low HDL Cholesterol HDL >or= 60 mg/dL High HDL Cholesterol Serum or plasma cholesterol in VLDL measurement (mass/volume)on 08-03-2021 Cholesterol in VLDL [Mass/Vol] 27 mg/dL 5-40 [facility] Work Phone: Serum or plasma creatinine m easurement (mass/volume)on 08-03-2021 Creatinine [Mass/Vol] 0.87 mg/dL 0.55-1.02 [facility] Work Phone: Comment on above: The validity of the calculated GFR & GFRAA in patients over 70 years has not been determined. Clinical correlation is essential. Serum or plasma low density lipoprotein (LDL) cholesterol measurement (mass/volume)on 08-03-2021 Cholesterol in LDL [Mass/Vol] 70 mg/dL 0-130 [facility] Work Phone: Serum or plasma urea nitroge n measurement (mass/volume)on 08-03-2021 Urea nitrogen [Mass/Vol] 12 mg/dL 7-18 [facility] Work Phone: Thin prep Papanicolaou smear with manual screeningon 08-03-2021 Thin prep Papanicolaou smear with manual screening 7 5-15 [facility] Work Phone: Thin prep Papanicolaou smear with manual screening 14.2 mg/L NO RANGE EST. [facility] Work Phone: Urine creatinine measurement (mass/volume)on 08-03-2021 Creatinine (U) [Mass/Vol] mg/dL NO RANGE EST. [facility] Work Phone: Vital Signs Date Time Vital Sign Value Performing Clinician Facility 11-29-2024 11:01-0400 Body height 162.[address] Jono Alvarez MD Work Phone: [facility] 11-29-2024 11:01-0400 Body temperature 99 [degF] Dr. Jono Alvarez MD Work Phone: [facility] 11-29-2024 11:01-0400 Diastolic blood pressure 80 mm[Hg] Dr. Jono Alvarez MD Work Phone: [facility] 11-29-2024 11:01-0400 Heart rate 86 /min Dr. Jono Alvarez MD Work Phone: [facility] 11-29-2024 11:01-0400 Respiratory rate 16 /min Dr. Jono Alvarez MD Work Phone: [facility] 11-29-2024 11:01-0400 SaO2% (BldA) [Mass fraction] 100 % Dr. Jono Alvarez MD Work Phone: [facility] 11-29-2024 11:01-0400 Systolic blood pressure 122 mm[Hg] Dr. Jono Alvarez MD Work Phone: [facility] 11-19-2024 12:38-0400 Body temperature 99.8 [degF] Dr. Jono Alvarez MD Work Phone: [facility] 11-19-2024 12:38-0400 Diastolic blood pressure 60 mm[Hg] Dr. Jono Alvarez MD Work Phone: [facility] 11-19-2024 12:38-0400 Heart rate 106 /min Dr. Jono Alvarez MD Work Phone: [facility] 11-19-2024 12:38-0400 Respiratory rate 18 /min Dr. Jono Alvarez MD Work Phone: [facility] 11-19-2024 12:38-0400 SaO2% (BldA) [Mass fraction] 97 % Dr. Jono Alvarez MD Work Phone: [facility] 11-19-2024 12:38-0400 Systolic blood pressure 120 mm[Hg] Dr. Jono Alvarez MD Work Phone: [facility] 11-19-2024 11:00-0400 Body height 162.[address] Jono Alvarez MD Work Phone: [facility] 06-28-2024 13:40-0500 Body height 162.[address] Jono Alvarez MD Work Phone: [facility] 06-28-2024 13:40-0500 Body mass index (BMI) [Ratio] 24.9 kg/m2 Dr. Jono Alvarez MD Work Phone: [facility] 06-28-2024 13:40-0500 Body temperature 97.6 [degF] Dr. Jono Alvarez MD Work Phone: [facility] 06-28-2024 13:40-0500 Body weight 65.[address] Jono Alvarez MD Work Phone: [facility] 06-28-2024 13:40-0500 Diastolic blood pressure 88 mm[Hg] Dr. Jono Alvarez MD Work Phone: [facility] 06-28-2024 13:40-0500 Heart rate 80 /min Dr. Jono Alvarez MD Work Phone: [facility] 06-28-2024 13:40-0500 Respiratory rate 16 /min Dr. Jono Alvarez MD Work Phone: [facility] 06-28-2024 13:40-0500 SaO2% (BldA) [Mass fraction] 99 % Dr. Jono Alvarez MD Work Phone: [facility] 06-28-2024 13:40-0500 Systolic blood pressure 164 mm[Hg] Dr. Jono Alvarez MD Work Phone: [facility] 04-21-2023 13:08-0500 Body height 162.[address] Jami Hopkins Work Phone: [facility] 04-21-2023 13:08-0500 Body mass index (BMI) [Ratio] 24.5 kg/m2 Dr. Jami Hopkins Work Phone: [facility] 04-21-2023 13:08-0500 Body temperature 99.5 [degF] Dr. Jami Hopkins Work Phone: [facility] 04-21-2023 13:08-0500 Body weight 64.[address] Jami Hopkins Work Phone: [facility] 04-21-2023 13:08-0500 Diastolic blood pressure 82 mm[Hg] Dr. Jami Hopkins Work Phone: [facility] 04-21-2023 13:08-0500 Heart rate 92 /min Dr. Jami Hopkins Work Phone: [facility] 04-21-2023 13:08-0500 Respiratory rate 16 /min Dr. Jami Hopkins Work Phone: [facility] 04-21-2023 13:08-0500 SaO2% (BldA) [Mass fraction] 97 % Dr. Jami Hopkins Work Phone: [facility] 04-21-2023 13:08-0500 Systolic blood pressure 138 mm[Hg] Dr. Jami Hopkins Work Phone: 5(479)073-539208 [address] 03-28-2023 10:10-0500 Body temperature 98.3 [degF] Dr. Jami Hopkins Work Phone: 2(588)[phone] [address] 03-28-2023 10:10-0500 Diastolic blood pressure 73 mm[Hg] Dr. Jami Hopkins Work Phone: 9(937)753-184637 [place] [address] 03-28-2023 10:10-0500 Heart rate 62 /min Dr. Jami Hopkins Work Phone: 3(398)303-980808 [address] 03-28-2023 10:10-0500 Respiratory rate 16 /min Dr. Jami Hopkins Work Phone: 4(805)220-148308 [address] 03-28-2023 10:10-0500 SaO2% (BldA) [Mass fraction] 99 % Dr. Jami Hopkins Work Phone: 2(798)641-588437 [place] [address] 03-28-2023 10:10-0500 Systolic blood pressure 109 mm[Hg] Dr. Jami Hopkins Work Phone: 1(687)888-178208 [address] 03-28-2023 09:10-0500 Body height 162.[address] Jami Hopkins Work Phone: 4(623)005-615108 [address] 03-28-2023 09:10-0500 Body mass index (BMI) [Ratio] 23.8 kg/m2 Dr. Jami Hopkins Work Phone: 4(918)[phone] [address] 03-28-2023 09:10-0500 Body weight 63.[address] Jami Hopkins Work Phone: 2(462)741-049208 [address] 02-14-2023 16:00-0400 Body mass index (BMI) [Ratio] 23.6 kg/m2 Dr. Jami Hopkins Work Phone: 8(602)[phone] [address] 02-14-2023 16:00-0400 Body weight 62.[address] Jami Hopkins Work Phone: 9(455)[phone] [place] [address] 01-27-2023 12:14-0400 Body temperature 98.7 [degF] Dr. Jami Hopkins Work Phone: 3(741)[phone] [place] [address] 01-27-2023 12:14-0400 Diastolic blood pressure 78 mm[Hg] Dr. Jami Hopkins Work Phone: 7(907)465-159837 [place] [address] 01-27-2023 12:14-0400 Heart rate 86 /min Dr. Jami Hopkins Work Phone: 0(123)[phone] [address] [place] [id number] 01-27-2023 12:14-0400 Respiratory rate 16 /min Dr. Jami Hopkins Work Phone: 4(494)330-582837 [place] [address] 01-27-2023 12:14-0400 SaO2% (BldA) [Mass fraction] 97 % Dr. Jami Hopkins Work Phone: 9(201)005-668237 [place] [address] 01-27-2023 12:14-0400 Systolic blood pressure 126 mm[Hg] Dr. Jami Hopkins Work Phone: 8(073)855-029037 [place] [address] 01-17-2023 11:20-0400 Body height 165.[address] Jami Hopkins Work Phone: 4(423)120-387037 [place] [address] 01-17-2023 11:20-0400 Body mass index (BMI) [Ratio] 23.1 kg/m2 Dr. Jami Hopkins Work Phone: 3(381)175-447437 [place] [address] 01-17-2023 11:20-0400 Body temperature 98.8 [degF] Dr. Jami Hopkins Work Phone: 4(785)334-794537 [place] [address] 01-17-2023 11:20-0400 Body weight 63.[address] Jami Hopkins Work Phone: 5(552)635-586737 [place] [address] 01-17-2023 11:20-0400 Diastolic blood pressure 90 mm[Hg] Dr. Jami Hopkins Work Phone: 7(235)035-588237 [place] [address] 01-17-2023 11:20-0400 Heart rate 64 /min Dr. Jami Hopkins Work Phone: [facility] 01-17-2023 11:20-0400 Respiratory rate 18 /min Dr. Jami Hopkins Work Phone: [facility] 01-17-2023 11:20-0400 SaO2% (BldA) [Mass fraction] 99 % Dr. Jami Hopkins Work Phone: [facility] 01-17-2023 11:20-0400 Systolic blood pressure 142 mm[Hg] Dr. Jami Hopkins Work Phone: 0(219)326-782583 [place] [address] 11-11-2022 17:47-0400 Body height 165.[address] Jami Hopkins Work Phone: 6(667)[phone] [address] 11-11-2022 17:47-0400 Body mass index (BMI) [Ratio] 23.3 kg/m2 Dr. Jami Hopkins Work Phone: [facility] 11-11-2022 17:47-0400 Body temperature 98.7 [degF] Dr. Jami Hopkins Work Phone: [facility] 11-11-2022 17:47-0400 Body weight 63.[address] Jami Hopkins Work Phone: [facility] 11-11-2022 17:47-0400 Diastolic blood pressure 78 mm[Hg] Dr. Jami Hopkins Work Phone: [facility] 11-11-2022 17:47-0400 Heart rate 73 /min Dr. Jami Hopkins Work Phone: [facility] 11-11-2022 17:47-0400 Respiratory rate 14 /min Dr. Jami Hopkins Work Phone: [facility] 11-11-2022 17:47-0400 SaO2% (BldA) [Mass fraction] 99 % Dr. Jami Hopkins Work Phone: [facility] 06-22-2023 17:47-0400 Systolic blood pressure 160 mm[Hg] Dr. Jami Hopkins Work Phone: [facility] 05-13-2022 08:15-0500 Body temperature 97.3 [degF] Nitonadiya Trigg [facility] Com[facility]; [facility] Work Phone: 05-03-2022 13:38-0500 [facility] Work Phone: 05-03-2022 13:38-0500 Body mass index (BMI) [Ratio] 24.03 kg/m2 [facility]; [facility] Work Phone: 05-03-2022 13:38-0500 Body surface area Derived from formula 1.72 m2 [facility]; [facility] Work Phone: 05-03-2022 13:38-0500 Body temperature 97.5 [degF] [facility] Comprehensiv e Internal Medicine; [facility] Work Phone: 05-03-2022 13:38-0500 Body weight 65.49 kg [facility]; [facility] Work Phone: 05-03-2022 13:38-0500 Diastolic blood pressure 80 mm[Hg] [facility]; [facility] Work Phone: Comment on above: Patient Position: Sitting; Cuff Location : Left Arm; Cuff Size: Standard 05-03-2022 13:38-0500 Heart rate 82 /min [facility]; [facility] Work Phone: Comment on above: Pattern: Regular 05-03-2022 13:38-0500 Respiratory rate 16 /min [facility] Gaming[facility]ard [facility] Comprehensiv e Internal Medicine; [facility] Work Phone: Comment on above: Pattern: Unlabored 05-03-2022 13:38-0500 SaO2% (BldA) [Mass fraction] 99 % Nuzhat [facility]; [facility] Work Phone: Comment on above: Room air 05-03-2022 13:38-0500 Systolic blood pressure 118 mm[Hg] Nuzhat Lawrence [facility]; [facility] Work Phone: Comment on above: Patient Position: Sitting; Cuff Location : Left Arm; Cuff Size: Standard Encounters Encounter Date Encounter Type Care Provider Facility Start: 11-29-2024 End: 11-29-[address] Jono Alvarez [facility] Phone[facility] Start: 11-29-2024 End: 11-29-2024 Patient encounter procedure Fadi Chance [facility] Work Phone: Start: 11-19-2024 End: 11-19-2024 Patient encounter procedure Eleno Ramirez PA [facility] Work Phone: Start: 11-19-2024 End: 11-19-[address] Jono Alvarez MD Work Phone: [facility] Start: 11-19-2024 End: 11-19-2024 ambulatory [facility] Facility:[facility] Start: 08-06-2024 End: 08-06-2024 Non-patient / Non-visit Dr. Lewis Beaulieu MD -[facility] Work Phone: Start: 08-06-2024 End: 08-06-[address] Jono Alvarez MD Work Phone: [facility] Work Phone: Start: 08-06-2024 End: 08-06-[address] Jono Alvarez MD -Pulmonary Services/Neurology Work Phone: Start: 08-06-2024 End: 08-06-2024 ambulatory [facility] Facility:[facility] Start: 06-28-2024 End: 06-28-[address] Jono Alvarez MD -[facility] Work Phone: Start: 06-28-2024 End: 06-28-[address] Jono Alvarez MD [facility] Start: 06-28-2024 End: 06-28-2024 [facility] Start: 06-28-2024 End: 06-28-2024 ambulatory [facility] Start: 02-07-2024 End: 02-07-2024 ambulatory [facility] Facility:[facility] Start: 01-26-2024 End: 01-26-2024 ambulatory [facility] Start: 01-26-2024 End: 01-26-2024 ambulatory [facility] Facility:[facility] Start: 12-02-2023 End: 12-02-2023 ambulatory [facility] Facility:[facility] Start: 04-21-2023 End: 04-21-[address] Jami Hopkins Work Phone: [facility] Work Phone: Start: 04-21-2023 End: 04-21-[address] Jami Hopkins Work Phone: [facility] Work Phone: Start: 03-28-2023 Non-patient / Non-visit Dr. Mari Hopkins Work Phone: [facility] Start: 03-28-2023 End: 03-28-2023 Admission to same day surgery center Dr. Jami Hopkins Work Phone: [facility]-Endoscopy Work Phone: Start: 03-28-2023 End: 03-28-[address] Jami Hopkins Work Phone: [facility] Work Phone: Start: 02-14-2023 Non-patient / Non-visit Dr. Mari Hopkins Work Phone: [facility] Work Phone: Start: 01-27-2023 End: 01-27-[address] Jami Hopkins Work Phone: [facility] Work Phone: Start: 01-27-2023 End: 01-27-[address] Jami Hopkins Work Phone: [facility]-Outpatient Bone Densitometry Work Phone: Start: 01-27-2023 End: 01-27-[address] Jami Hopkins Work Phone: [facility] Work Phone: Start: 01-17-2023 End: 01-17-[address] Jami Hopkins Work Phone: [facility] Work Phone: Start: 01-17-2023 End: 01-17-2023 Encounter for general adult medical examination without abnormal findings Dr. Jami Hopkins Work Phone: [facility] Start: 01-17-2023 End: 01-17-[address] Jami Hopkins Work Phone: [facility] Work Phone: Start: 11-22-2022 End: 11-22-[address] Jami Hopkins Work Phone: [facility] Work Phone: Start: 11-22-2022 End: 11-22-[address] Jami Hopkins Work Phone: [facility] Breast Imaging Work Phone: Start: 11-11-[address] Jami Hopkins Work Phone: [facility] Start: 11-11-2022 End: 11-11-2022 Encounter for general adult medical examination without abnormal findings Dr. Jami Hopkins Work Phone: [facility] Start: 11-11-2022 End: 11-11-[address] Jami Hopkins Work Phone: [facility] Work Phone: Start: 05-13-2022 End: 05-13-2022 Office outpatient visit 10 minutes Muriel Donn DO Work Phone: [facility] Start: 05-10-2022 ambulatory Muriel Donn DO [facility] Start: 05-03-2022 End: 05-05-2022 Office outpatient new 45 minutes Muriel Donn DO Work Phone: [facility] Start: 09-29-2021 End: 09-29-2021 Patient encounter procedure [facility] Start: 08-03-2021 End: 08-03-2021 Patient encounter procedure [facility] Procedures Date Procedure Procedure Detail Performing Clinician Start: 11-19-[address] Arjun Alvarez MD Work Phone: Start: 03-28-[address] Jami armas Work Phone: Start: 01-27-2023 Dual energy X-ray absorptiometry Dr. Jami Hopkins Work Phone: Start: 11-22-2022 Screening mammography D yoel Hopkins Work Phone: Start: 09-29-2021 Screening mammography Colonoscopy Cayla Slarb LP N Comment on above: 2012 Colonoscopy Nuzhat Lawrence [facility] Comment on above: 2012 Kidney excision Cayla Slarb [employer] Comment on above: Donated to 2 015 Kidney excision Nuzhat Barnes [employer] Comment on above: Donated to 2 015 Mammography Cayla Slarb LP N Comment on above: September 2021 Mammography Nuzhat Lawrence [employer] Comment on above: September 2021 Tonsillectomy Cayla Lenardrb L PN Comment on above: 1965 Tonsillectomy Nuzhat Lawrence [facility] Comment on above: 1965 Plan of Treatment Date Care Activity Detail Author Start: 03-28-2023 Colonoscopy flx dx w/collj spec when pfrmd DIAGNOSTIC COLONOSCOPY [facility] Start: 03-28-2023 Patient discharge [facility] Start: 01-17-2023 Patient referral [facility] Work Phone: Start: 05-13-2022 Procedure Education Eprescribed prescriptions (G8553) [facility]; [facility] Work Phone: Start: 05-13-2022 Provider Instructions for Treatment Reviewed Lab [facility]; [facility] Work Phone: Start: 05-03-2022 Iron binding capacity IRON BINDING CAPACITY (TIBC) (38708) [facility]; [facility] Work Phone: Start: 05-03-2022 Assay of ferritin FERRITIN (34978) [facility]; [facility] Work Phone: Start: 05-03-2022 Assay of thyroid stimulating hormone tsh TSH (85504) [facility]; [facility] Work Phone: Start: 05-03-2022 Urnls dip stick/tablet reagent auto microscopy URINALYSIS, W/ MICRO (23856) [facility]; [facility] Work Phone: Start: 05-03-2022 Urine albumin quantitative MICROALBUMIN: CREATININE RATIO (47729) AND (17880) [facility]; [facility] Work Phone: Start: 05-03-2022 Comprehensive metabolic panel METABOLIC PANEL, COMPREHENSIVE (74073) [facility]; [facility] Work Phone: Start: 05-03-2022 Lipid panel LIPID PANEL (85806) [facility]; [facility] Work Phone: Start: 05-03-2022 Blood count complete auto&auto difrntl wbc CBC W/AUTO DIFF WBC (38894) [facility]; [facility] Work Phone: Start: 05-03-2022 Procedure Education Eprescribed prescriptions (G8553) [facility]; [facility] Work Phone: [facility] Drugs identified in Urine by Screen method [facility] DXA Bone [Mass/Area] Bone density [facility] Patient referral [facility] Work Phone: [facility]; [facility] Work Phone: [facility] Immunizations Immunization Date Immunization Notes Care Provider Fa cility 03-23-2022 COVID-Moderna (50 MCG/0.25 ML) Muriel Donn DO Work Phone: [facility]; [facility] Work Phone: 03-23-2022 influenza, seasonal, injectable Muriel Donn DO Work Phone: [facility]; [facility] Work Phone: 07-21-2021 tetanus toxoid, reduced diphtheria toxoid, and acellular pertussis vaccine, adsorbed Muriel Donn DO Work Phone: [facility]; [facility] Work Phone: Payers Date Payer Category Payer Self-pay [id number] 2021 Unknown [id number] 1960 Unknown [id number] Unknown [id number] Unknown [employer] [place] Unknown [id number] Unknown [id number] Unknown [id number] Unknown [id number] Unknown [id number] Unknown [id number] Unknown [id number] Unknown [id number] Unknown [id number] Unknown [id number] Social History Date Type Detail Facility Tobacco smoking status NHIS Unknown if ever smoked [facility] Work Phone: Start: 1960 Sex Assigned At Female [facility] Alcohol Use Alcohol Use [facility] Work Phone: Comment on above: 03-05 weekly lives with spouse an d pets- 2 dogs and 2 cats Tobacco Use: Tobacco Use: [facility] Work Phone: Comment on above: quit in 1999 Start: 11-11-2022 End: 04-21-2023 Tobacco smoking status NHIS Unknown if ever smoked [facility] Start: 04-21-2023 End: 11-29-2024 Tobacco smoking status NHIS Ex-smoker (finding) [facility] Start: 08-14-2024 Sex Female (finding) [facility] Goals Date Patient Goal Desired Activity /State Mental Status Date Assessment Result Facility 03-28-2023 Cognitive function Voice/Name [facility] Work Phone: Clinical Notes 08-03-2021 to 11-29-2024 Note Date & Type Note Facility 11-29-2024 Progress note [facility] 11-29-2024 Progress note Note Date/Time November 29, 2024 1:32pm [facility] [address], [address] [place] [address] OFFICE VISIT Date of Service: 11/29/24 MR#: [id number] Acct: [id number] Name: KANDACE RASHEED Rep #: [id number] : 1960 Provider: BRONSON Rogel Age/Sex: 64/F Location: [facility] Status: Signed Intake Vital Signs 11/29/24 11:01 Height 5 ft 4 in BP 122/80 H Position Sitting Respiration 16 Pulse 86 Temp 99.0 F Temp Source Oral Pulse Oximetry (%) 100 Oxygen Delivery Method room air Intake Visit Reasons: CONCERN FOR UTI Accompanied by: Self Allergies bee venom protein (honey bee) Allergy (Severe, Verified 11/19/24 12:46) Shortness of breath crab Allergy (Severe, Verified 11/19/24 12:46) Swelling nitrofurantoin (From Macrobid) Allergy (Severe, Verified 11/19/24 12:46) Shortness of breath Nurse's Note: Patient concern for a UTI. Patient has one kidney. Patient had some kidney pain last night. Patient was here and treated for one on on was given Cipro for 5 days. [facility] Medical History (Updated 11/29/24 @ 13:31 by BRONSNO Burris) Muscle spasm Medication monitoring encounter Bony growth Hypercalcemia Wears glasses Alcohol use Depression Anxiety History of IBS Former smoker History of echocardiogram Colon cancer screening Health care maintenance Renal donor Hyperlipidemia Difficulty sleeping Ocular migraine Cardiac murmur High cholesterol Hypertension Tension headache IBS (irritable bowel syndrome) Anxiety and depression Seasonal allergies Surgical History Hx of colonoscopy History of kidney removal History of tonsillectomy Social History Smoking Status: Former smoker alcohol intake: current alcohol intake frequency: a few times a week substance use type: does not use what type of physical activity do you participate in: walking frequency: 5-6 times per week HPI HPI Details: KANDACE RASHEED, is a 64 F who presents to the office today for concern for possible UTI. Patient states that last night she started having some low back pain. Patient states being here on 11/19/2024 and treated for what she believes was a UTI with Cipro however the urine culture came back with mixed contaminants. She states that the symptoms did resolve however. Patient does have a solitary kidney. No pelvic or abdominal pain. No fever, chills or sweats. She has not taken any medications for this episode. No other associated symptoms or alleviating/aggravating factors. ROS Const Constitutional: No other (6 system ROS completed with pertinent findings in the HPI otherwise normal.) Exam Const General: cooperative and healthy appearing Resp Effort & Inspection: normal respiratory effort Auscultation: Bilateral: Clear to Auscultation Cardio Rate: regular rate Rhythm: regular rhythm GI Auscultation: normal bowel sounds General: No CVA tenderness Psych Appearance: grossly normal Mental Status: mental status grossly normal Results POC Urinalysis Dip (Clinic) Office Urine Color YELLOW Last Edit by Kathy Edward MA on 11/29/24 13:22 Office Urine Clarity Clear Last Edit by Kathy Edward MA on 11/29/24 13:22 Office Urine Glucose Negative Last Edit by Kathy Edward MA on 11/29/24 13: 22 Office Urine Ketones Negative Last Edit by Kathy Edward MA on 11/29/24 13: 22 Off Ur Spec [place] 1.005 Last Edit by Kathy Edward MA on 11/29/24 13:22 Office Urine pH 7.5 Last Edit by Kathy Edward MA on 11/29/24 13:22 Office Urine Bilirubin Negative Last Edit by Kathy Edward MA on 11/29/24 13:22 Office Urine Urobilinogen 0.2 mg/dL Last Edit by Kathy Edward MA on 13:22 Office Urine Blood Moderate Last Edit by Kathy Edward MA on 11/29/24 13:22 Office Urine Blood Hemolyzed Non-Hemolyzed Last Edit by Kathy Edward MA on 11/29/24 13:22 Office Urine Protein Negative Last Edit by Kathy Edward MA on 11/29/24 13: 22 Office Urine Nitrate Negative Last Edit by Kathy Edward MA on 11/29/24 13: 22 Off Ur Leukocytes Positive Last Edit by Kathy Edward MA on 11/29/24 13:22 Coding Level of Care Code Off vis,est,level 3 Diagnoses Cystitis N30.90 Assessment and Plan Assessment and Plan (1) Cystitis: Status: Acute Orders: Orders POC Urinalysis Dip (Clinic) Today N23 - Unspecified renal colic Culture, Urine Today N23 - Unspecified renal colic Medications: New sulfamethoxazole-trimethoprim 800-160 mg (Bactrim DS) 1 TAB PO Q12H 7 days 14 tabs 0RF Plan Bactrim as prescribed today. Encouraged to get plenty of rest, drink lots of clear liquids, and use Tylenol or Ibuprofen (unless contraindicated) for fever and comfort. Patient also educated on other symptomatic management techniques. To be seen in 7-10 days if no improvement; sooner if worsening of symptoms. Patient advised of potential red flags and when appropriate to report to the ED. Patient verbalized understanding and agreement with all the above. 11/29/24 1332 <Electronically signed by Fadi DOBSON> Date _ Fadi DOBSON [facility] Signature: Date (if applicable) CC: ~ [facility] Work Phone: 1(388) 219-878406-30-2025 Progress [facility] [address], [address] [place] [address] OFFICE VISIT Date of Service: 11/19/24 MR#: [id number] Acct: [id number] Name: KANDACE RASHEED Rep #: [id number] : 1960 Provider: BRONSON Quintanilla Age/Sex: 63/F Location: [facility] Status: Signed Intake Vital Signs 06/28/24 13:40 11/19/24 11:00 11/19/24 12:38 Height 5 ft 4 in 5 ft 4 in Weight: 145 lb 6 oz BMI 24.9 BP 164/88 H 120/60 Blood Pressure Location Lt brachial Position Sitting Sitting Respiration 16 18 Pulse 80 106 H Pulse Source Monitor Temp 97.6 F L 99.8 F H Temp Source Temporal Oral Pulse Oximetry (%) 99 97 Oxygen Delivery Method room air room air Intake Visit Reasons: concern for uti Accompanied by: Self Allergies bee venom protein (honey bee) Allergy (Severe, Verified 11/19/24 12:46) Shortness of breath crab Allergy (Severe, Verified 11/19/24 12:46) Swelling nitrofurantoin (From Macrobid) Allergy (Severe, Verified 11/19/24 12:46) Shortness of breath Medications ?Medication ?Instructions ?Recorded ?Confirmed ?Type Turmeric Curcumin 1 ea PO DAILY 11/11/2211/19 History cholecalciferol (vitamin D3) 50 50 mcg PO DAILY 11/19/24 History mcg (2,000 unit) capsule coenzyme Q10 100 mg capsule (Co 100 mg PO DAILY 11/19/24 History Q-10) collagen peptide 1 ea PO DAILY 11/11/2211/19 History diphenhydramine HCl 25 mg capsule 25 mg PO QHS PRN ALL ERGIES 11/11/22 11/19/24 History magnesium 250 mg tablet 250 mg PO DAILY 11/11/22 History multivitamin 1 tab PO DAILY 11/11/2210/23 History omega 4-sjo-ohg-fish oil 60 mg-90 1 cap PO DAILY 11/1111/19/24 History mg-500 mg capsule (Fish Oil) psyllium husk 0.52 gram capsule 0.52 g PO DAILY 11/19/24 History vitamin B complex 1 cap PO DAILY 11/11/2210/23 History thiamine HCl (vitamin B1) 50 mg 50 mg PO DAILY 01/17/ 3 11/19/24 History tablet potassium 1 ea PO Q OTHER DAY 02/14/23 11/19/24 History pyridoxine (vitamin B6) 10 mg 10 mg PO DAILY 10/20/23 11/19/24 History tablet triamcinolone acetonide 0.1 % 1 applic topical DAILY P RN 10/20/23 11/19/24 Rx topical cream Dermatitis #80 grams cyclobenzaprine 5 mg tablet 5 mg PO TID PRN muscle spa sm #21 04/27/24 11/19/24 Rx tabs atorvastatin 10 mg tablet 10 mg PO Q OTHER DAY #90 tab s 05/28/24 11/19/24 Rx hyoscyamine sulfate 0.125 mg tablet 0.125 mg PO QD-BID PRN dyspepsia 06/28/24 11/19/24 Rx #60 tabs paroxetine HCl 20 mg tablet 20 mg PO BID 3 months #180 tabs 06/28/24 11/19/24 Rx lorazepam 1 mg tablet 1 mg PO DAILY PRN anxiety #1 0 tabs 06/29/24 11/19/24 Rx losartan 50 mg tablet 50 mg PO BID #180 tabs 09/1311/19/24 Rx amlodipine 5 mg tablet 5 mg PO DAILY #90 TABLETS 11/19/24 Rx hydrochlorothiazide 25 mg tablet 25 mg PO DAILY #90 ta bs 09/26/24 11/19/24 Rx ciprofloxacin HCl 500 mg tablet 500 mg PO BID #10 tabs 11/19/24 11/19/24 Rx Nurse's Note: Patient has concerns for a UTI. Patient states last night she had frequency and then this morning she had burning and low grade fever and feels crummy. [facility] Medical History (Updated 06/28/24 @ 16:[address] Jono Alvarez MD) Muscle spasm Medication monitoring encounter Bony growth Hypercalcemia Wears glasses Alcohol use Depression Anxiety History of IBS Former smoker History of echocardiogram Colon cancer screening Health care maintenance Renal donor Hyperlipidemia Difficulty sleeping Ocular migraine Cardiac murmur High cholesterol Hypertension Tension headache IBS (irritable bowel syndrome) Anxiety and depression Seasonal allergies Surgical History Hx of colonoscopy History of kidney removal History of tonsillectomy Social History Smoking Status: Former smoker alcohol intake: current alcohol intake frequency: a few times a week substance use type: does not use what type of physical activity do you participate in: walking frequency: 5-6 times per week HPI HPI Details: KANDACE RASHEED, is a 63 F who [facility] of [facility]uria and urinary frequency with suprapubic pressure - alongw/ mild chills and trace aching low back pain. No complaints of fever, sweats, lightheadedness/dizzi ness,nausea/vomiting, or chest pain/shortness of breath/dyspnea on exertion/mid- back pain. No roqo-odg-rctjqld products taken to assist. No other associated symptomsand no alleviating/aggravating factors. ROS Const Constitutional: No other (As above) Exam Const General: cooperative, healthy appearing and no acute distress Orientation: alert, awake and oriented x3 Chest Chest palpation & inspection: normal inspection of the chest Resp Effort & Inspection: normal respiratory effort and able to speak in complete sentences Cardio Rate: regular rate Pulses: radial pulses present GI Inspection: normal to inspection Palpation: soft and tender suprapubic (Patient describes upon self-palpation) General: No CVA tenderness Skin General: no rashes or lesions noted Neuro General: patient alert, patient awake and patient oriented x3 Cognition: normal cognition Speech: speech normal Psych Appearance: grossly normal Mental Status: mental status grossly normal Mood: congruent mood Affect: normal affect Speech and Movement: speech and movement normal Attitude: cooperative Diagnoses Urinary tract infection with hematuria N39.0 Assessment and Plan Assessment and Plan (1) Urinary tract infection with hematuria: Status: Acute Plan: See POC results; urine sent to lab for C/S. Cipro as prescribed today. Supportive measures as instructed today. Follow-up with PCP in 3 to 5 days should symptoms not improve, ED sooner should symptoms only worsen or any other concerns develop. Patient states acknowledging understanding all the above Results POC Urinalysis Dip (Clinic) Office Urine Color YELLOW Last Edit by Kathy Edward MA on 11/19/24 12:49 Office Urine Clarity Clear Last Edit by Kathy Edward MA on 11/19/24 12:49 Office Urine Glucose Negative Last Edit by Kathy Edward MA on 11/19/24 12: 49 Office Urine Ketones Negative Last Edit by Kathy Edward MA on 11/19/24 12: 49 Off Ur Spec [place] 1.005 Last Edit by Kathy Edward MA on 11/19/24 12:49 Office Urine pH 7.5 Last Edit by Kathy Edward MA on 11/19/24 12:49 Office Urine Bilirubin Negative Last Edit by Kathy Edward MA on 11/19/24 12:49 Office Urine Urobilinogen 0.2 mg/dL Last Edit by Kathy Edward MA on 12:49 Office Urine Blood Hemolyzed Last Edit by Kathy Edward MA on 11/19/24 12:4 9 Office Urine Blood Hemolyzed Large Last Edit by Kathy Edward MA on 5 12:49 Office Urine Protein 1+ Last Edit by Kathy Edward MA on 11/19/24 12:49 Office Urine Nitrate Negative Last Edit by Kathy Edward MA on 11/19/24 12: 49 Off Ur Leukocytes Positive Last Edit by Kathy Edward MA on 11/19/24 12:49 Coding Level of Care Code Off vis,est,level 3 Assessment and Plan Assessment and Plan Orders: Orders POC Urinalysis Dip (Clinic) Today R30.0 - Dysuria Culture, Urine Today R30.0 - Dysuria Medications: New ciprofloxacin HCl 500 mg PO BID 10 tabs 0RF 11/19/24 1257 s RBONSON DOBSON> Date _ Eleno DOBSON Cosigner Signature: Date (if applicable) CC: ~ [facility]06-30-2025 Progress note Author Eleno Ramirez [facility] Services Note Date/Time November 19, 2024 12:5 7pm [place] [address], [address] [place] [address] OFFICE VISIT Date of Service: 11/19/24 MR#: [id number] Acct: [id number] Name: KANDACE RASHEED Rep #: [id number] : 1960 Provider: BRONSON Quintanilla Age/Sex: 63/F Location: [facility] Status: Signed Intake Vital Signs 06/28/24 13:40 11/19/24 11:00 11/19/24 12:38 Height 5 ft 4 in 5 ft 4 in Weight: 145 lb 6 oz BMI 24.9 BP 164/88 H 120/60 Blood Pressure Location Lt brachial Position Sitting Sitting Respiration 16 18 Pulse 80 106 H Pulse Source Monitor Temp 97.6 F L 99.8 F H Temp Source Temporal Oral Pulse Oximetry (%) 99 97 Oxygen Delivery Method room air room air Intake Visit Reasons: concern for uti Accompanied by: Self Allergies bee venom protein (honey bee) Allergy (Severe, Verified 11/19/24 12:46) Shortness of breath crab Allergy (Severe, Verified 11/19/24 12:46) Swelling nitrofurantoin (From Macrobid) Allergy (Severe, Verified 11/19/24 12:46) Shortness of breath Medications ?Medication ?Instructions ?Recorded ?Confirmed ?Type Turmeric Curcumin 1 ea PO DAILY 11/11/2211/19 History cholecalciferol (vitamin D3) 50 50 mcg PO DAILY 11/19/24 History mcg (2,000 unit) capsule coenzyme Q10 100 mg capsule (Co 100 mg PO DAILY 11/19/24 History Q-10) collagen peptide 1 ea PO DAILY 11/11/2211/19 History diphenhydramine HCl 25 mg capsule 25 mg PO QHS PRN ALL ERGIES 11/11/22 11/19/24 History magnesium 250 mg tablet 250 mg PO DAILY 11/11/22 History multivitamin 1 tab PO DAILY 11/11/2210/23 History omega 4-dwb-zwc-fish oil 60 mg-90 1 cap PO DAILY 11/1111/19/24 History mg-500 mg capsule (Fish Oil) psyllium husk 0.52 gram capsule 0.52 g PO DAILY 11/19/24 History vitamin B complex 1 cap PO DAILY 11/11/2210/23 History thiamine HCl (vitamin B1) 50 mg 50 mg PO DAILY 3 11/19/24 History tablet potassium 1 ea PO Q OTHER DAY 02/14/23 11/19/24 History pyridoxine (vitamin B6) 10 mg 10 mg PO DAILY 10/20/23 11/19/24 History tablet triamcinolone acetonide 0.1 % 1 applic topical DAILY P RN 10/20/23 11/19/24 Rx topical cream Dermatitis #80 grams cyclobenzaprine 5 mg tablet 5 mg PO TID PRN muscle spa sm #21 04/27/24 11/19/24 Rx tabs atorvastatin 10 mg tablet 10 mg PO Q OTHER DAY #90 tab s 05/28/24 11/19/24 Rx hyoscyamine sulfate 0.125 mg tablet 0.125 mg PO QD-BID PRN dyspepsia 06/28/24 11/19/24 Rx #60 tabs paroxetine HCl 20 mg tablet 20 mg PO BID 3 months #180 tabs 06/28/24 11/19/24 Rx lorazepam 1 mg tablet 1 mg PO DAILY PRN anxiety #1 0 tabs 06/29/24 11/19/24 Rx losartan 50 mg tablet 50 mg PO BID #180 tabs 09/1311/19/24 Rx amlodipine 5 mg tablet 5 mg PO DAILY #90 TABLETS 11/19/24 Rx hydrochlorothiazide 25 mg tablet 25 mg PO DAILY #90 ta bs 09/26/24 11/19/24 Rx ciprofloxacin HCl 500 mg tablet 500 mg PO BID #10 tabs 11/19/24 11/19/24 Rx Nurse's Note: Patient has concerns for a UTI. Patient states last night she had frequency and then this morning she had burning and low grade fever and feels crummy. [facility] Medical History (Updated 06/28/24 @ 16:[address] Jono Alvarez MD) Muscle spasm Medication monitoring encounter Bony growth Hypercalcemia Wears glasses Alcohol use Depression Anxiety History of IBS Former smoker History of echocardiogram Colon cancer screening Health care maintenance Renal donor Hyperlipidemia Difficulty sleeping Ocular migraine Cardiac murmur High cholesterol Hypertension Tension headache IBS (irritable bowel syndrome) Anxiety and depression Seasonal allergies Surgical History Hx of colonoscopy History of kidney removal History of tonsillectomy Social History Smoking Status: Former smoker alcohol intake: current alcohol intake frequency: a few times a week substance use type: does not use what type of physical activity do you participate in: walking frequency: 5-6 times per week HPI HPI Details: KANDACE RASHEED, is a 63 F who presents to the office today for [facility] for approximately 24-hour history of dysuria and urinary frequency with suprapubic pressure - along w/ mild chills and trace aching low back pain. No complaints of fever, sweats, lightheadedness/dizziness,nausea/vomiting, or chest pain/shortness of breath/dyspnea on exertion/mid-back pain. No xrgs-ydd-qvcuesh products taken to assist. No other associated symptomsand no alleviating/aggravating factors. ROS Const Constitutional: No other (As above) Exam Const General: cooperative, healthy appearing and no acute distress Orientation: alert, awake and oriented x3 Chest Chest palpation & inspection: normal inspection of the chest Resp Effort & Inspection: normal respiratory effort and able to speak in complete sentences Cardio Rate: regular rate Pulses: radial pulses present GI Inspection: normal to inspection Palpation: soft and tender suprapubic (Patient describes upon self-palpation) General: No CVA tenderness Skin General: no rashes or lesions noted Neuro General: patient alert, patient awake and patient oriented x3 Cognition: normal cognition Speech: speech normal Psych Appearance: grossly normal Mental Status: mental status grossly normal Mood: congruent mood Affect: normal affect Speech and Movement: speech and movement normal Attitude: cooperative Diagnoses Urinary tract infection with hematuria N39.0 Assessment and Plan Assessment and Plan (1) Urinary tract infection with hematuria: Status: Acute Plan: See POC results; urine sent to lab for C/S. Cipro as prescribed today. Supportive measures as instructed today. Follow-up with PCP in 3 to 5 days should symptoms not improve, ED sooner should symptoms only worsen or any other concerns develop. Patient states acknowledging understanding all the above Results POC Urinalysis Dip (Clinic) Office Urine Color YELLOW Last Edit by Kathy Edward MA on 11/19/24 12:49 Office Urine Clarity Clear Last Edit by Kathy Edward MA on 11/19/24 12:49 Office Urine Glucose Negative Last Edit by Kathy Edward MA on 11/19/24 12: 49 Office Urine Ketones Negative Last Edit by Kathy Edward MA on 11/19/24 12: 49 Off Ur Spec [place] 1.005 Last Edit by Kathy Edward MA on 11/19/24 12:49 Office Urine pH 7.5 Last Edit by Kathy Edward MA on 11/19/24 12:49 Office Urine Bilirubin Negative Last Edit by Kathy Edward MA on 11/19/24 12:49 Office Urine Urobilinogen 0.2 mg/dL Last Edit by Kathy Edward MA on 12:49 Office Urine Blood Hemolyzed Last Edit by Kathy Edward MA on 11/19/24 12:4 9 Office Urine Blood Hemolyzed Large Last Edit by Kathy Edward MA on 5 12:49 Office Urine Protein 1+ Last Edit by Kathy Edward MA on 11/19/24 12:49 Office Urine Nitrate Negative Last Edit by Kathy Edward MA on 11/19/24 12: 49 Off Ur Leukocytes Positive Last Edit by Kathy Edward MA on 11/19/24 12:49 Coding Level of Care Code Off vis,est,level 3 Assessment and Plan Assessment and Plan Orders: Orders POC Urinalysis Dip (Clinic) Today R30.0 - Dysuria Culture, Urine Today R30.0 - Dysuria Medications: New ciprofloxacin HCl 500 mg PO BID 10 tabs 0RF 11/19/24 1257 <Electronically signed by Eleno DOBSON> Date _ Eleno DOBSON Cosign Signature: Date (if applicable) CC: ~ [facility] Work Phone: 1(790) 647-244902-06-2025 Evaluation note* Diagnosis Onset Date Resolution Status Admit Date Health care maintenance acute F ebruary 2024 1:30pm Anxiety and depression chronic Fe bruary 2024 1:30pm Hyperlipidemia chronic June 282024 1:30pm Hypertension chronic June 1:30pm Muscle spasm chronic June 1:30pm [facility] Work Phone: 1(213) 388-183711-06-2023 Procedure [facility] 03-28-2023 Procedure [facility]03-14-2022 NotePap Smear Specimen AdequacyMarch 2021 2:30pmCommentSatisfactory for evaluation. Endocervical component may not bedistinguished in cases of atrophy.[facility] A#[id number] Work Phone: Comment on above:Satisfactory for evaluation. Endocervical component may not bedistinguished in cases of atrophy.08-03-2021 NotePap Smear Specimen AdequacyMarch 2021 2:30pmCommentSatisfactory for evaluation. Endocervical component may not bedistinguished in cases of atrophy. [facility] A#[id number] Work Phone: Comment on above:Satisfactory for evaluation. Endocervical component may not bedistinguished in cases of atrophy.Evaluation noteNo assessment information availableWFlower Hospital Work Phone: Evaluation note* Diagnosis Onset Date Resolution Status Health care maintenance acut e Renal donor acute Anxiety and depression chron ic Hyperlipidemia chronic Hypertension [facility] Work Phone: Evaluation note* Diagnosis Onset Date Resolution Status Health care maintenance acut e Anxiety and depression chron ic Hyperlipidemia chronic Hypertension chronic Renal donor chronic Health care maintenance acut e Anxiety and depression chron ic Hyperlipidemia chronic Hypertension chronic Renal donor [facility] Work Phone: Evaluation note* Diagnosis Onset Date Resolution Status Health care maintenance acut e Anxiety and depression chron ic Hyperlipidemia chronic Hypertension chronic Renal donor chronic Health care maintenance acut e Anxiety and depression chron ic Hyperlipidemia chronic Hypertension chronic Renal donor chronic Acute pharyngitis acute [facility] Work Phone: Evaluation note* Diagnosis Onset Date Resolution Status Health care maintenance acut e Anxiety and depression chron ic Hyperlipidemia chronic Hypertension chronic Renal donor chronic Acute pharyngitis acute Colon cancer screening acute [facility] Work Phone: Evaluation note* Diagnosis Onset Date Resolution Status Health care maintenance acut e Anxiety and depression chron ic Hyperlipidemia chronic Hypertension chronic Renal donor chronic Acute pharyngitis acute Colon cancer screening acute Anxiety and depression chron ic Hyperlipidemia chronic Hypertension chronic Renal donor [facility] Work Phone: Evaluation note* Diagnosis Onset Date Resolution Status Admit Date Cystitis acute November 29 1:02pm [facility] Work Phone: History and physical note Author Yaima Ignacio [facility] March 28, 2023 9:05am Note Date/Time March 28, 2023 9 :03am [facility] Medical Records Department [address] [place] [address] History & Physical Exam 03/28/23 0903 MR#: [id number] Acct: [id number] Name: KANDACE RASHEED Rep #:[id number] : 1960 62 From: Yaima Ignacio MD PCP: Dr. Jono Alvarez MD Status:R [facility] Location: [place] [address] HPI - General General Date of Service: 03/28/23 HPI Narrative KANDACE RASHEED, is a 62 F who presents for screening colonoscopy. Patient had acolonoscopy [address] Willams negative per patient. Patient denies anychronic abdominal pain/nausea/vomiting/reflux. Patient has bowel movements daily denies any blood. Patient denies any family history of colon cancer. [facility] Medical History Alcohol use Anxiety Anxiety and depression Cardiac murmur Colon cancer screening Depression Difficulty sleeping Former smoker Health care maintenance High cholesterol History of echocardiogram History of IBS Hyperlipidemia Hypertension IBS (irritable bowel syndrome) Ocular migraine Renal donor Seasonal allergies Tension headache Wears glasses Home Medications Turmeric Curcumin 1 ea PO DAILY 11/11/22 [History Last Taken Unknown] cholecalciferol (vitamin D3) 50 mcg (2,000 unit) capsule 50 mcg PO DAILY 11/11/22 [History Last Taken Unknown] coenzyme Q10 100 mg capsule (Co Q-10) 100 mg PO DAILY 11/11/22 [History Last Taken Unknown] collagen peptide 1 ea PO DAILY 11/11/22 [History Last Taken Unknown] cyclobenzaprine 5 mg tablet 5 mg PO .prn PRN spasms 11/11/22 [History Last Taken Unknown] diphenhydramine HCl 25 mg capsule 25 mg PO QHS PRN ALLERGIES 11/11/22 [History Last Taken Unknown] hydrochlorothiazide 25 mg tablet 25 mg PO DAILY 11/11/22 [History Last Taken Unknown] losartan 50 mg tablet 50 mg PO BID 11/11/22 [History Last Taken Unknown] magnesium 250 mg tablet 250 mg PO DAILY 11/11/22 [History Last Taken Unknown] multivitamin 1 tab PO DAILY 11/11/22 [History Last Taken Unknown] omega 5-bgr-vwv-fish oil 60 mg-90 mg-500 mg capsule (Fish Oil) 1 cap PO DAILY 11/11/22 [History Last Taken Unknown] psyllium husk 0.52 gram capsule 0.52 g PO DAILY 11/11/22 [History Last Taken Unknown] vitamin B complex 1 cap PO DAILY 11/11/22 [History Last Taken Unknown] amlodipine 5 mg tablet 5 mg PO DAILY #90 tabs 01/17/23 [Rx Last Taken Unknown] atorvastatin 10 mg tablet 10 mg PO Q OTHER DAY #90 tabs 01/17/23 [Rx Last Taken Unknown] hyoscyamine sulfate 0.125 mg tablet 0.125 mg PO QD-BID #60 tabs 01/17/23 [Rx Last Taken Unknown] lorazepam 1 mg tablet 1 mg PO DAILY PRN anxiety #7 tabs 01/17/23 [Rx Last Taken Unknown] paroxetine HCl 20 mg tablet 20 mg PO DAILY #90 tabs 01/17/23 [Rx Last Taken Unknown] thiamine HCl (vitamin B1) 50 mg tablet 50 mg PO DAILY 01/17/23 [History Last Taken Unknown] potassium 1 ea PO Q OTHER DAY 02/14/23 [History Last Taken Unknown] Allergy/AdvReac Type Severity Reaction Status Date / Time bee venom protein (honey bee) Allergy Severe Shortness Verified 02/14/23 15:55 of breath crab Allergy Severe Swelling Verified 02/14/23 15:55 nitrofurantoin Allergy Severe Shortness Verified 02/14/23 15:55 [From Macrobid] of breath Surgical History History of kidney removal History of tonsillectomy Hx of colonoscopy Social History Smoking Status: Former smoker alcohol intake: current alcohol intake frequency: a few times a week substance use type: does not use what type of physical activity do you participate in: walking frequency: 5-6 times per week Past Medical/Surgical History Planned Operation Planned Operative Procedure/s: COLONOSCOPY Previous Hospitalizations/Surgeries HX Hospitalizations: No Any Problems With Anesthesia: No You/Your Family Experience Fever (Hyperthermia) With Anes: No Cholinesterase deficiency: No Cardiovascular Hx Hypertension: Yes Respiratory Hx Sleep Apnea: No Hx Respiratory Tract Infection/Cold (presently): No Do You Snore Loudly (louder than talking or can be heard): No Do You Often Feel Tired/ Fatigued/ Sleepy Dring Daytime?: No Has Anyone Observed You Stop Breathing During Sleep?: No Result (for STOP score): Negative Smoking Status: Former smoker Neurological Does patient have nerve stimulator: No Allergies bee venom protein (honey bee) Allergy (Severe, Verified 02/14/23 15:55) Shortness of breath crab Allergy (Severe, Verified 02/14/23 15:55) Swelling THROAT TIGHTNESS nitrofurantoin [From Macrobid] Allergy (Severe, Verified 02/14/23 15:55) Shortness of breath Discharge Is Pt Admitted From a Jail, or a Penitentiary: No Who Could Help: After D/C, Where Do you Plan to Go: Return Home Physical Exam Const alert, oriented x3 and no apparent distress HEENT normocephalic and head/scalp atraumatic Resp normal respiratory effort Cardio regular rate GI soft to palpation and non-tender; Negative for non-distended Palpation: Negative for guarding Extremity no clubbing, cyanosis or edema Skin no rashes or lesions noted Neuro CN's II-XII intact bilaterally Psych mental status grossly normal Assessment & Plan Assessment/Plan (1) Colon cancer screening: Surgery Risks - Colonoscopy I discussed with the patient the risks of the procedure: Yes Risks Include but are not Limited To: Risks include but are not limited to: Bleeding, perforation requiring further surgery, inability to complete colonoscopy requiring barium enema. 03/28/23904 <Electronically signed by Yaima Ignacio MD> Cosigner Signature (if applicable): CC: Dr. Jono Alvarez MD; Dr. Yaima Ignacio MD~ Signed [facility] Work Phone: Instructions* Name Dates Details Patient Instructions Indication:Nonsmoker Start:03-May-2022 Instruction Type:Provider Instructions for Treatment How to Access Health Informa tion Online using Patient Portal and 3rd [employer] Apps Indication:Nonsmoker Start:03-May-2022 Instruction Type:Patient Education [facility] Work Phone: Instructions* Name Dates Details Patient Instructions Indication:Nonsmoker Start:03-May-2022 Instruction Type:Provider Instructions for Treatment How to Access Health Informa tion Online using Patient Portal and 3rd [employer] Apps Indication:Nonsmoker Start:03-May-2022 Instruction Type:Patient Education [facility]; [facility] Work Phone: instructions* Name Dates Details Patient Instructions Indication:Nonsmoker Start:13-May-2022 Instruction Type:Provider Instructions for Treatment How to Access Health Informa tion Online using Patient Portal and 3rd [employer] Apps Indication:Nonsmoker Start:13-May-2022 Instruction Type:Patient Education Patient Instructions Indication:Nonsmoker Start:03-May-2022 Instruction Type:Provider Instructions for Treatment How to Access Health Informa tion Online using Patient Portal and 3rd [employer] Apps Indication:Nonsmoker Start:03-May-2022 Instruction Type:Patient Education [facility]; [facility] Work Phone: instructions* Name Dates Details Patient Instructions Indication:Nonsmoker Start:13-May-2022 Instruction Type:Provider Instructions for Treatment How to Access Health Informa tion Online using Patient Portal and 3rd [employer] Apps Indication:Nonsmoker Start:13-May-2022 Instruction Type:Patient Education Patient Instructions Indication:Nonsmoker Start:03-May-2022 Instruction Type:Provider Instructions for Treatment How to Access Health Informa tion Online using Patient Portal and 3rd [employer] Apps Indication:Nonsmoker Start:03-May-2022 Instruction Type:Patient Education [facility]; [facility] Work Phone: instructions* Name Dates Details Patient Instructions Indication:Nonsmoker Start:13-May-2022 Instruction Type:Provider Instructions for Treatment How to Access Health Informa tion Online using Patient Portal and 3rd [employer] Apps Indication:Nonsmoker Start:13-May-2022 Instruction Type:Patient Education Patient Instructions Indication:Nonsmoker Start:03-May-2022 Instruction Type:Provider Instructions for Treatment How to Access Health Informa tion Online using Patient Portal and 3rd [employer] Apps Indication:Nonsmoker Start:03-May-2022 Instruction Type:Patient Education [facility]; [facility] Work Phone: Reason for referral (narrative)No reason for referral information availableWFlower Hospital Work Phone: Chief Complaint and Reason for Visit Chief Complaint SCREENING Chief Complaint [facility]. EST CARE - PPW S ENT SCREENING Reason for Visit Health care maintena nce Renal donor Anxiety and depression Hyperlipidemia Hypertension Chief Complaint [facility]. EST CARE - PPW S ENT SCREENING 2 M FU/wellness visit Reason for Visit Health care maintena nce Anxiety and depression Hyperlipidemia Hypertension Renal donor Health care maintenance Anxiety and depression Hyperlipidemia Hypertension Renal donor Chief Complaint [facility]. EST CARE - PPW S ENT SCREENING 2 M FU/wellness visit SORE THROAT SCREENING Reason for Visit Health care maintena nce Anxiety and depression Hyperlipidemia Hypertension Renal donor Health care maintenance Anxiety and depression Hyperlipidemia Hypertension Renal donor Acute pharyngitis Chief Complaint 2 M FU/wellness visi t SORE THROAT SCREENING Amb Documentation Reason for Visit Health care maintena nce Anxiety and depression Hyperlipidemia Hypertension Renal donor Acute pharyngitis Colon cancer screening Chief Complaint 2 M FU/wellness visi t SORE THROAT SCREENING Amb Documentation wellness Reason for Visit Health care maintena nce Anxiety and depression Hyperlipidemia Hypertension Renal donor Acute pharyngitis Colon cancer screening Anxiety and depression Hyperlipidemia Hypertension Renal donor Chief Complaint Admit Date 4 M FU June 28, 2024 1 :30pm HYPERTENSION August 06, 2024 11: 51am HYPERTENSION August 06, 2024 12: 12pm Reason for Visit Admit Date Health care maintenance June 28 1:30pm Anxiety and depression June 28 1:30pm Hyperlipidemia June 28, 2024 1 :30pm Hypertension June 28, 2024 1 :30pm Muscle spasm June 28, 2024 1 :30pm Chief Complaint Admit Date HYPERTENSION August 06, 2024 11: 51am HYPERTENSION August 06, 2024 12: 12pm concern for uti November 19, 2024 12:3 5pm Chief Complaint Admit Date HYPERTENSION August 06, 2024 11: 51am HYPERTENSION August 06, 2024 12: 12pm concern for uti November 19, 2024 12:3 5pm CONCERN FOR UTI November 29, 2024 1:02 pm Reason for Visit Admit Date Cystitis November 29, 2024 1:02 pm Family History Unknown Family Member Name Dates Details Brother 1 Comments:ulcer Status:Active Father Comments:Prostate cancer, Ty pe 2 diabetes, hematomachrosis, HTN Status:Active Maternal Grandfather Comments:CVA Status:Active Mother Comments:HTN, Cholesterol Status:Active Paternal Grandfather Comments:Prostate cancer, ty pe 2 diabetes, emphazema Status:Active Paternal Grandmother Comments:ALS Status:Active Paternal Uncle Comments:2 uncles and cousin ALS Status:Active Unknown Family Member Name Dates Details Brother 1 Comments:ulcer Status:Active Father Comments:Prostate cancer, Ty pe 2 diabetes, hematomachrosis, HTN Status:Active Maternal Grandfather Comments:CVA Status:Active Mother Comments:HTN, Cholesterol Status:Active Paternal Grandfather Comments:Prostate cancer, ty pe 2 diabetes, emphazema Status:Active Paternal Grandmother Comments:ALS Status:Active Paternal Uncle Comments:2 uncles and cousin ALS Status:Active Unknown Family Member Name Dates Details Brother 1 Comments:ulcer Status:Active Father Comments:Prostate cancer, Ty pe 2 diabetes, hematomachrosis, HTN Status:Active Maternal Grandfather Comments:CVA Status:Active Mother Comments:HTN, Cholesterol Status:Active Paternal Grandfather Comments:Prostate cancer, ty pe 2 diabetes, emphazema Status:Active Paternal Grandmother Comments:ALS Status:Active Paternal Uncle Comments:2 uncles and cousin ALS Status:Active Unknown Family Member Name Dates Details Brother 1 Comments:ulcer Status:Active Father Comments:Prostate cancer, Ty pe 2 diabetes, hematomachrosis, HTN Status:Active Maternal Grandfather Comments:CVA Status:Active Mother Comments:HTN, Cholesterol Status:Active Paternal Grandfather Comments:Prostate cancer, ty pe 2 diabetes, emphazema Status:Active Paternal Grandmother Comments:ALS Status:Active Paternal Uncle Comments:2 uncles and cousin ALS Status:Active Unknown Family Member Name Dates Details Brother 1 Comments:ulcer Status:Active Father Comments:Prostate cancer, Ty pe 2 diabetes, hematomachrosis, HTN Status:Active Maternal Grandfather Comments:CVA Status:Active Mother Comments:HTN, Cholesterol Status:Active Paternal Grandfather Comments:Prostate cancer, ty pe 2 diabetes, emphazema Status:Active Paternal Grandmother Comments:ALS Status:Active Paternal Uncle Comments:2 uncles and cousin ALS Status:Active Summary Purpose Advance Directives Advance Directive Response Recorded Date/ Time Name of Medical Power of Corporate Relations Director March 22, 2023 8:28am Living Will Yes October 31st, 20 23 8:28am Power of Corporate Relations Director Yes March 22, 2023 8:28am Advance Directive Response Recorded Date/ Time Living Will Yes March 22 9:28am Do you have a Healthcare Power of Corporate Relations Director? Yes March 22, 2023 9:28am Additional Source Comments Goals (unrecognized section and content) Goals may be documented in a n alternate sectionGoals may be documented in an alternate sectionGoals may be documented in an alternate sectionGoals may be documented in an alternate sectionGoals may be documented in an alternate sectionGoals may be documented in an alternate sectionGoals may be documented in an alternate sectionGoals may be documented in an alternate sectionGoals may be documented in an alternate section INFORMATION SOURCE (unrecogn ized section and content) DATE CREATED AUTHOR 05/14/2022 [facility] DATE CREATED AUTHOR AUTHOR'S RITOIZ ATION 11/23/2024 [facility] Care Teams (unrecognized sec tion and content) Team Status: Active Member Role Status Dates Dr. Jami Hopkins MD Family Provider Active Dr. Jono Alvarez MD Primary Care Provider Active Team Status: Inactive Member Role Status Dates Dr. Jami Hopkins MD Primary Care Provider, Referrin g Provider Active Dr. Jono Alvarez MD Attending Provider Active Team Status: Inactive Member Role Status Dates Dr. Jono Alvarez MD Primary Care P pj, Attending Provider, Referring Provider Active Team Status: Inactive Member Role Status Dates Dr. Jami Hopkins MD Referring Provider Active Dr. Jono Alvarez MD Primary Care Provider, Atten ding Provider Active Team Status: Inactive Member Role Status Dates Dr. Jono Alvarez MD Primary Care Provider, Atten ding Provider Active Team Status: Inactive Member Role Status Dates Dr. Jono Alvarez MD Primary Care Provider, Refer ring Provider Active Fadi Chance PA, PA Attending Provider Active Team Status: Active Member Role Status Dates Dr. Jono Alvarez MD Primary Care Provider Active Dory Krishna Attending Provider Active Team Status: Active Member Role Status Dates Dr. Jono Alvarez MD Primary Care Provider, Refer ring Provider Active Dr. Yaima Ignacio MD Attending Provider, Other Pro vider Active Team Status: Inactive Member Role Status Dates Dr. Jono Alvarez MD Primary Care Provider, Refer ring Provider Active Dr. Yaima Ignacio MD Attending Provider Active Team Status: Active Member Role Status Dates Dr. Jono Alvarez MD Primary Care Provider Active Team Status: Inactive Member Role Status Dates Dr. Jono Alvarez MD Primary Care Provider Active Start: June 28, 2024 End: June 28, 2024 Dr. Jono Alvarez MD Attending Provider Active Start: June 28, 2024 End: June 28, 2024 Dr. Jono Alvarez MD Referring Provider Active Start: June 28, 2024 End: June 28, 2024 Team Status: Inactive Member Role Status Dates Dr. Jono Alvarez MD Primary Care Provider Active Start: August 06, 2024 End: August 06, 2024 Dr. Jono Alvarez MD Attending Provider Active Start: August 06, 2024 End: August 06, 2024 Dr. Jono Alvarez MD Referring Provider Active Start: August 06, 2024 End: August 06, 2024 Team Status: Active Member Role Status Dates Dr. Jono Alvarez MD Primary Care Provider Active Start: August 06, 2024 End: August 06, 2024 Dr. Jono Alvarez MD Referring Provider Active Start: August 06, 2024 End: August 06, 2024 Dr. Lewis Beaulieu MD Attending Provider Active S tart: August 06, 2024 End: August 06, 2024 Team Status: Active Member Role/Relationship Status Dates Dr. Jono Alvarez MD Primary Care Provider Active Team Status: Inactive Member Role/Relationship Status Dates Dr. Jono Alvarez MD Primary Care Provider Active Start: August 06, 2024 End: August 06, 2024 Dr. Jono Alvarez MD Attending Provider Active Start: August 06, 2024 End: August 06, 2024 Dr. Jono Alvarez MD Referring Provider Active Start: August 06, 2024 End: August 06, 2024 Team Status: Active Member Role/Relationship Status Dates Dr. Jono Alvarez MD Primary Care Provider Active Start: August 06, 2024 End: August 06, 2024 Dr. Jono Alvarez MD Referring Provider Active Start: August 06, 2024 End: August 06, 2024 Dr. Lewis Beaulieu MD Attending Provider Active S tart: August 06, 2024 End: August 06, 2024 Team Status: Inactive Member Role/Relationship Status Dates Dr. Jono Alvarez MD Primary Care Provider Active Start: November 19, 2024 End: November 19, 2024 Dr. Jono Alvarez MD Referring Provider Active Start: November 19, 2024 End: November 19, 2024 BRONSON Ceballos Attending Provider Active Start: November 19, 2024 End: November 19, 2024 Team Status: Inactive Member Role/Relationship Status Dates Dr. Jono Alvarez MD Primary Care Provider Active Start: November 19, 2024 End: November 19, 2024 BRONSON Ceballos Attending Provider Active Start: November 19, 2024 End: November 19, 2024 Team Status: Inactive Member Role/Relationship Status Dates Dr. Jono Alvarez MD Primary Care Provider Active Start: November 29, 2024 End: November 29, 2024 Dr. Jono Alvarez MD Referring Provider Active Start: November 29, 2024 End: November 29, 2024 BRONSON Burris Attending Provider Active Sta rt: November 29, 2024 End: November 29, 2024 FOR RECORDS PERTAINING TO PATIENTS WHO ARE OR HAVE BEEN ENROLLED IN A CHEMICAL DEPENDENCY/SUBSTANCEABUSE PROGRAM, SOME INFORMATION MAY BE OMITTED. This clinical summary was aggregated from multiple sources. Caution should be exercised in using it in the provision of clinical care. This summary normalizes information from multiple sources, and as a consequence, information in this document may materially change the coding, format and clinical context of patient data. In addition, data may be omitted in some cases. CLINICAL DECISIONS SHOULD BE BASED ON THE PRIMARY CLINICAL RECORDS. [facility] [employer] provides no warranty or guarantee of the accuracy or completeness of information in this document.
== END | disposition home or self-care (01) ==
LOC: LABSPEC 13:43
PROVIDERS: PCP Internal Medicine; Visit Provider Physician Assistant Surgical
DX: N23 Unspecified renal colic (principal)
CPT/HCPCS: 87086; 87088

== ENCOUNTER → 2024-12-20 | Outpatient (CLI) | payer OTHER, SELFPAY ==
[2024-12-20 16:05] LABS: Anion Gap 12 (5-15); BUN 11 mg/dL (4-19); BUN/Creat Ratio 14.1 RATIO (10-20); Calcium,Total 9.8 mg/dL (7.6-11.0); Carbon Dioxide 25.9 mmol/L (21.0-32.0); Chloride 94 mmol/L (98-108); Glucose 110 mg/dL (70-99); Potassium 4.1 mmol/L (3.3-5.1)
== END | disposition home or self-care (01) ==
LOC: BIMLAB 14:20
PROVIDERS: PCP Internal Medicine; Referring Provider Internal Medicine; Visit Provider Internal Medicine
DX: I10 Essential (primary) hypertension (principal)
CPT/HCPCS: 36415; 80048

== ENCOUNTER → 2025-01-14 | Outpatient (CLI) | payer OTHER, SELFPAY ==
--- NOTE | 2025-01-14 14:45 | BI_ITS ---
EXAM: SCRN MAMM (CAD)W/STACIE BILAT DATE: 01/14/2025 CLINICAL HISTORY: F, Age 64 y/o , BREAST CANCER SCREENING Aunt with breast cancer. TECHNIQUE: SCRN MAMM (CAD)W/STACIE BILAT COMPARISON: Prior exam(s) dated December 02, 2023.. FINDINGS: TISSUE DENSITY: The breasts are heterogeneously dense, which may obscure small masses. Bilateral Breast Mammographic Findings: No significant masses, calcifications or other abnormalities are identified. Stable bilateral secretory calcifications. No focal cluster is seen. No suspicious masses, areas of developing architectural distortion, or suspicious calcifications. There has been no significant interval change. BI/SCRN MAMM (CAD)W/STACIE BILAT IMPRESSION: Stable examination. OVERALL FINAL ASSESSMENT BI-RADS 2: BENIGN RECOMMENDATION: Routine annual follow-up in 1 Year A letter with findings and recommendations will be mailed to the patient. Reading Location: [place]
== END | disposition home or self-care (01) ==
LOC: OPBI 14:45
PROVIDERS: PCP Internal Medicine; Referring Provider Internal Medicine; Visit Provider Internal Medicine
DX: Z12.31 Encounter for screening mammogram for malignant neoplasm of breast (principal)
CPT/HCPCS: 77063; 77067

== ENCOUNTER → 2025-02-12 | Outpatient (CLI) | payer OTHER, SELFPAY ==
--- NOTE | 2025-02-12 11:00 | BD_ITS ---
PROCEDURE: DEXA BONE DENSITY STUDY 02/12/2025 REASON FOR EXAM: POST MENOPAUSAL F, age 64 y/o . Postmenopausal. TECHNIQUE: Procedure Code: BDDBD Modality: DX Procedure: DEXA BONE DENSITY STUDY COMPARISON: Prior study dated January 27, 2023. FINDINGS: BMD and T-SCORES Lumbar spine: 1.049 g/cm2, T-score 0.0 Levels: L1 through L4 Change from prior: Loss of 3.7%. Left femoral neck: 0.750 g/cm2, T-score -0.9 Femoral neck comparison data not recommended for monitoring change. Left total hip: 0.902 g/cm2, T-score -0.3 Change from prior: Loss of 2.1%. Right femoral neck: 0.733 g/cm2, T-score -1.0 Femoral neck comparison data not recommended for monitoring change. Right total hip: 0.938 g/cm2, T-score 0.0 Change from prior: Loss of 2.8%. The World Health Organization has defined the following categories based on bone density: Normal bone density: T-score equal to or greater than -1.0 Osteopenia: T-score between -1.0 and -2.5 Osteoporosis: T-score equal to or less than -2.5 FRAX (or Comparable) Fracture Risk Assessment: 10 Year Probability of Fracture: Major Osteoporotic Fracture: 7.9% Hip Fracture: 0.5% (Note: FRAX is not to be reported in setting of normal range bone density, osteoporosis on DEXA, known history of osteoporosis, prior osteoporotic hip or vertebral fracture, or for any patient undergoing pharmacological treatment for bone loss.) The National Osteoporosis Foundation (NOF) recommends pharmacological treatment for patients with a FRAX 10-year risk of 3% or higher for a hip fracture, or 20% or higher for a major osteoporotic fracture, to prevent osteoporosis and reduce fracture risk. The patient does not meet the pharmacological treatment recommendations for prevention of osteoporosis. BD/Dexa Bone Density Study IMPRESSION: NORMAL T-SCORES. Recommend follow-up as clinically warranted. Reading Location: [place] [id number]
== END | disposition home or self-care (01) ==
LOC: OPBD 10:54
PROVIDERS: PCP Internal Medicine; Referring Provider Internal Medicine; Visit Provider Internal Medicine
DX: Z78.0 Asymptomatic menopausal state (principal)
CPT/HCPCS: 77080